=== PATIENT | female | born 1935 | race Caucasian/White ===

== ENCOUNTER 2019-07-31 17:48 | Inpatient (IN) | payer MEDICARE, OTHER ==
[2019-07-31] MEDS ORDERED: ACETAMINOPHEN 500 MG TABLET (FP) PO ONE (18:12)
--- NOTE | 2019-07-31 18:12 | PDOC ---
Rapid Medical Evaluation Time Seen by Provider: 07/31/19 18:08 Medical Evaluation: Allergies Allergy/AdvReac Type Severity Reaction Status Date / Time No Known Allergies Allergy Verified 10/01/16 18:41 07/31/19 18:08 CC: fever, cough x3 days. Travel from [facility] 07/29. Family with influenza. PE: T-101.6, Scattered wheezes. No pedal edema. Orders: duonebs, CXR Patient will proceed to ER for further evaluation. Discharge Disposition - Diagnosis Cough - Referrals - Patient Instructions - Post Discharge Activity
[2019-07-31] MEDS ORDERED: ACETAMINOPHEN 325 MG TABLET (FP) ONE (18:35)
[2019-07-31] MEDS ORDERED: ALBUTEROL SO4 2.5/IPRATROPIUM 0.5 INH SOL 3 ML VIAL.NEB. NEB ONE ×2 (18:35→19:39)
[2019-07-31] MEDS ORDERED: IPRATROPIUM BR 0.02% 0.5 MG/2.5 ML VIAL.NEB. NEB ONE ×2 (18:36→18:55)
[2019-07-31] MEDS: ALBUTEROL SO4 2.5/IPRATROPIUM 0.5 INH SOL 3 ML VIAL.NEB. NEB SCH ×3 (18:50→19:56)
[2019-07-31] MEDS ORDERED: ALBUTEROL SO4 0.083% IH SOL 2.5 MG/3 ML VIAL.NEB. NEB ONE (18:54)
--- NOTE | 2019-07-31 19:31 | PDOC ---
History of Present Illness - General Chief Complaint: Blood Pressure Problem Stated Complaint: Blood Pressure Problem Time Seen by Provider: 07/31/19 18:08 - History of Present Illness Initial Comments: Bella Gutierrez is an 84yo woman with a PMH of HTN, paroxysmal a- fib who presents with 3 days of productive cough, wheezing, SOB, and fever. She recently moved to the from the last week. Per her daughter, Ms Gutierrez has been taking 500mg acetaminophen every 4-6 hours for the past day or two without significant improvement; she has had continued to have fever and productive cough. She additionally reported feeling short of breath throughout the day today. The daughter gave Ms Gutierrez her son' s albuterol due to the SOB with some temporary improvement. The pt has no history of asthma or COPD, though she was recently told that she "might be getting" asthma by her doctor in the . She denies any similar episodes in the past. Ms Gutierrez denies any chest pain, change in appetite, nausea/vomiting, diarrhea , abdominal pain, or other recent or current symptoms. Past History - Past Medical History Allergies/Adverse Reactions: Allergies Allergy/AdvReac Type Severity Reaction Status Date / Time No Known Allergies Allergy Verified 07/31/19 18:12 Home Medications: Ambulatory Orders Warfarin Sodium 5 mg PO DAILY #30 tablet 10/09/16 Aspirin [ASA -] 81 mg PO DAILY #30 tab.chew 10/10/16 Atorvastatin Ca [Lipitor] 40 mg PO HS #30 tablet 10/10/16 Chlorthalidone [Hygroton -] 25 mg PO DAILY #30 tablet 10/10/16 Diltiazem Cd [Cardizem Cd -] 180 mg PO DAILY #30 cap.cd.24h 10/10/16 Levofloxacin [Levaquin] 500 mg PO DAILY #6 tablet 10/10/16 Metoprolol Tartrate [Lopressor -] 25 mg PO BID #60 tablet 10/10/16 Valsartan [Diovan] 320 mg PO DAILY #30 tablet 10/10/16 Allopurinol 300 mg PO DAILY 07/31/19 Amiodarone HCl 1 tab PO DAILY 07/31/19 Atenolol/Chlorthalidone [Atenolol-Chlorthalidone 100-25] 1 tab PO DAILY Hydrochlorothiazide 25 mg PO DAILY 07/31/19 Irbesartan 150 mg PO AM 07/31/19 COPD: No HTN: Yes - Surgical History Abdominal Surgery: Yes Orthopedic Surgery: Yes (ARM) - Psycho Social/Smoking Cessation Hx Smoking History: Never smoked Have you smoked in the past 12 months: No Hx Alcohol Use: No Drug/Substance Use Hx: No Substance Use Type: None Hx Substance Use Treatment: No Review of Systems - Review of Systems Comments:: General: + fevers, no chills, no weight or appetite change, no malaise HEENT: No changes in vision, no changes in hearing, no congestion, no sore throat CV: No chest pain, no palpitations, no LE edema Pulm: See HPI GI: No nausea or vomiting, no change in bowel habits, no melena : No frequency, no urgency, no dysuria Musc: No back pain, no joint swelling, no recent injury Skin: No rash, no lesions, no erythema Endo: No excessive thirst, no heat/cold intolerance Heme: No unusual bruising or bleeding, no swollen glands Neuro: No syncope, no numbness/tingling, no focal weakness Vasc: No claudication Psych: No recent change in mood, no SI or HI *Physical Exam - Vital Signs Last Vital Signs Temp Pulse Resp BP Pulse Ox 101.6 F H 79 18 183/71 H 99 07/31/19 18:06 07/31/19 18:06 07/31/19 18:06 07/31/19 18:06 07/31/19 18:06 - Physical Exam General: Comfortable, no acute distress HEENT: PERRL, EOMI, MMM, voice normal, normal neck ROM Cards: RRR, no murmur appreciated Pulm: Breathing comfortably, diffuse wheezing bilaterally Abd: Soft, nontender, nondistended : No CVA tenderness Ext: Atraumatic. 1+ LE edema. ROM intact. Strength 5/5 and equal bilaterally Vasc: Extremities WWP. ally Skin: Normal color, no rashes or lesions Neuro: A&Ox3, CN grossly intact, normal speech, motor/sensory grossly intact and symmetric Psych: Mood appropriate to situation ED Treatment Course - LABORATORY CBC & Chemistry Diagram: 07/31/19 20:30 07/31/19 20:30 - Medications Given in the ED: ED Medications Discontinued Medications Generic Name Dose Route Start Last Admin Trade Name Francesca PRN Reason Stop Dose Admin Acetaminophen 1,000 mg 07/31/19 18:12 07/31/19 18:40 Tylenol - PO 07/31/19 18:13 1,000 mg ONCE ONE Administration Albuterol/Ipratropium 1 amp 07/31/19 18:15 07/31/19 18:55 Duoneb - NEB 07/31/19 19:01 1 amp Q15M CANDACE Administration Medical Decision Making - Medical Decision Making 07/31/19 19:30 Bella Gutierrez is an 84yo woman, recently moved from the last week, with a PMH of HTN, paroxysmal a-fib who presents with 3 days of productive cough, wheezing, shortness of breath, and fever. - Flu sent from [facility]. CXR ordered - Given age, unknown comorbidities, new onset SOB will check CBC, CMP, trop, coags. Denies chest pain but cannot r/o ACS, pulm edema, pneumonia 07/31/19 19:48 - Flu B positive - Pt and family updated - Labs and xray pending 07/31/19 21:02 - CXR reviewed. No focal abnormalities appreciated - EKG w/ HR 97, normal sinus, t-wave inversions in lateral leads, similar to prior from 2017, no acute changes appreciated. Normal axis, normal intervals. - Labs sent, pending. Plan to admit when labs returned given continued wheezing w/o history of asthma, no PMD or follow up available 07/31/19 21:13 - Labs reviewed. No concerning abnormalities - Will send microblog for admission 07/31/19 21:21 - Family requested time to discuss possible admission. - Solu-medrol for wheezing 07/31/19 21:28 - Family OK with admission. Requesting home amiodarone 200mg that pt takes in the evening; also takes irbesartan 150mg in the morning. Pt has not been taking for several days - Will defer cardiac meds to admitting team as family does not know why she takes the amio 07/31/19 23:00 - Sign out given to Dr Marcos Discussed with Dr Anna Slaughter PGY2 Discharge - Discharge Information Problems reviewed: Yes Clinical Impression/Diagnosis: Influenza B, Shortness of breath, Wheezing on both sides of chest Hypertension Qualifiers: Hypertension type: unspecified Qualified Code(s): I10 - Essential (primary) hypertension Condition: Fair - Admission Yes - Follow up/Referral - Patient Discharge Instructions - Post Discharge Activity
--- NOTE | 2019-07-31 19:32 | PDOC ---
Attending Attestation - Resident Resident Name: Ruth Slaughter - ED Attending Attestation I have performed the following: I have examined & evaluated the patient, The case was reviewed & discussed with the resident, I agree w/resident's findings & plan - HPI HPI: 07/31/19 20:32 see resident hpi - Physicial Exam PE: 07/31/19 20:32 agree with resident exam - Medical Decision Making 07/31/19 20:33 84-year-old female with fever and shortness of breath Patient is influenza positive Chest x-ray shows poor inspiratory effort with no obvious focal infiltrate Due to bronchospasm with wheezing on exam and lack of local follow-up as patient is recently arrived from the [facility] she will be admitted to the hospital for further management this was discussed with the family at bedside
[2019-07-31 20:53] LABS: BASO % 0.5 % (0-2.0); EOS % 0.8 % (0-4.5); HEMATOCRIT 39.6 % (32.4-45.2); HEMOGLOBIN 13.3 GM/dL (10.7-15.3); LYMPH % 38.7 % (8-40); MCH 31.3 pg (25.7-33.7); MCHC 33.5 g/dl (32.0-36.0); MEAN CELL VOLUME 93.2 fl (80-96); MEAN PLT VOLUME 8.2 fl (7.5-11.1); MONO % 12.7 % (3.8-10.2); NEUT % 47.3 % (42.8-82.8); PLATELET COUNT 227 K/MM3 (134-434); RBC 4.25 M/mm3 (3.60-5.2); RDW 13.8 % (11.6-15.6); WHITE BLOOD COUNT 5.5 K/mm3 (4.0-10.0)
[2019-07-31 21:03] LABS: PROTHROMBIN TIME (PATIENT) 11.8 SEC (9.7-13.0)
[2019-07-31 21:06] LABS: ACTIVATED PTT 36.1 SECONDS (25.2-36.5)
[2019-07-31 21:11] LABS: ALBUMIN 3.9 g/dl (3.4-5.0); BILIRUBIN,TOTAL 0.3 mg/dL (0.2-1); BLOOD UREA NITROGEN 22.9 mg/dL (7-18); CALCIUM 8.6 mg/dL (8.5-10.1); CREATININE 1.2 mg/dL (0.55-1.3); POTASSIUM 3.6 mmol/L (3.5-5.1)
[2019-07-31] MEDS ORDERED: methylPREDNISolone NA SUCC 125 MG/2 ML VIAL IVPB ONE (21:23)
[2019-07-31 21:44] LABS: PLATELET ESTIMATE DECREASED
[2019-07-31] MEDS ORDERED: methylPREDNISolone NA SUCC 125 MG/2 ML VIAL ONE (22:04)
--- NOTE | 2019-07-31 23:47 | PN ---
Teaching Attending Note Name of Resident: Shannan Marcos ATTENDING PHYSICIAN STATEMENT I saw and evaluated the patient. I reviewed the resident's note and discussed the case with the resident. I agree with the resident's findings and plan as documented. SUBJECTIVE: Patient is an 84 year old woman with a PMH of HTN, Paroxysmal Afib, Hysterectomy , Metal plate in arm (s/p trauma), Arthritis and Rectal bleeding who presents with 3 days of productive cough, wheezing, SOB, and fever. She recently moved to the from the [facility] last week. Per her daughter patient has been taking 500 mg acetaminophen every 4-6 hours for the past day or two without significant improvement. She has had continued fever and productive cough. She additionally reported feeling short of breath throughout the day today. The daughter gave the patient her son's albuterol due to the SOB with some temporary improvement. Patient has no history of asthma or COPD, though she was recently told that she "might be getting" asthma by [place]. She denies any similar episodes in the past though her records show she was admitted in September 2016 to [facility] for similar symptoms. Had intermittent leg swelling in the past. Denies any chest pain, change in appetite, nausea, vomiting, diarrhea, abdominal pain, dysuria, frequency, hematuria or constipation. Denies alcohol, tobacco or illicit drug use. Exposed to a sick grandson. Has FH of DM, CAD and CVA. OBJECTIVE: Alert Vital Signs Period Temp Pulse Resp BP Sys/Bates Pulse Ox Last 24 Hr 101.6 F 79 18 183/71 99 HEENT: No Jaundice, eye redness or discharge, PERRLA, EOMI. Normocephalic, atraumatic. External ears are normal and hearing is grossly intact. No nasal discharge. Neck: Supple, nontender. No palpable adenopathy or thyromegaly. No JVD Chest: Good effort. Prolonged expiration. Intermittent wheezing. Clear to percussion. Heart: Regular. No S3, rub or murmur Abdomen: Not distended, soft, nontender and no HSM. No rebound or guarding. Normal bowel sounds. Ext: Peripheral pulses intact. No leg edema. Skin: Warm and dry. No petechiae, rash or ecchymosis. Neuro: Alert. Oriented x3. CN 2-12 grossly intact. Sensation grossly intact in all four extremities and DTR are symmetric. Psych: Appropriate mood and affect. Good insight. Home Medications Medication Instructions Recorded Warfarin Sodium 5 mg PO DAILY #30 tablet 10/09/16 Aspirin [ASA -] 81 mg PO DAILY #30 tab.chew 10/10/16 Atorvastatin Ca [Lipitor] 40 mg PO HS #30 tablet 10/10/16 Chlorthalidone [Hygroton -] 25 mg PO DAILY #30 tablet 10/10/16 Diltiazem Cd [Cardizem Cd -] 180 mg PO DAILY #30 cap.cd.24h 10/10/16 Levofloxacin [Levaquin] 500 mg PO DAILY #6 tablet 10/10/16 Metoprolol Tartrate [Lopressor -] 25 mg PO BID #60 tablet 10/10/16 Valsartan [Diovan] 320 mg PO DAILY #30 tablet 10/10/16 Allopurinol 300 mg PO DAILY 07/31/19 Amiodarone HCl 1 tab PO DAILY 07/31/19 Atenolol/Chlorthalidone 1 tab PO DAILY 07/31/19 [Atenolol-Chlorthalidone 100-25] Hydrochlorothiazide 25 mg PO DAILY 07/31/19 Irbesartan 150 mg PO AM 07/31/19 Abnormal Lab Results 07/31/19 07/31/19 07/31/19 18:00 20:30 20:30 Monocytes % 12.7 H D BUN 22.9 H Random Glucose 162 H Influenza B (Rapid) Positive A ASSESSMENT AND PLAN: 1. Influenza B infection/CHF exacerbation - CXR shows cardiomegaly, pulmonary congestion, blunted left costophrenic angle and hilar prominence. Features consistent with CHF exacerbation precipitated by influenza infection. Outside the window for Tamiflu. Will give a trial dose of IV lasix and then also treat for possible underling "obstructive lung disease" with Xopenex, solumedrol and symbicort. Refer for outpatient PFT. Will get ECHO, check HbA1c and uric acid. Restrict dietary salt intake and get daily standing weight. Will ask family to bring in all her medications for review. EKG shows NSR with ST-T wave changes in the inferolateral leads - similar to prior EKG from 2016. Initial troponin is negative. Will rule out ACS. Says her PCP stopped "Xarelto" last month - during the day will strive to get in touch with her PCP in [place] for clarification regarding her medication regimen (?Amiodarone). Her CHA2 DS2-VASc score is 4 - will start Eliquis 2.5 mg bid. Consult social welfare administrator for help with health insurance; consult cardiology and pulmonary. Will continue comprehensive care for all of patients comorbid conditions including coumadin for Afib. 2. Obesity Counseled on the risks associated with obesity. Will provide patient all the necessary assistance, counseling and positive reinforcement to facilitate weight loss. Consult bingo worker. 3. Uncontrolled Hypertension - Restart suitable outpatient antihypertensive drugs when clinically appropriate. Revise regimen to ensure [id number] excellent BP control and quitline counselor patient on the injurious effects of uncontrolled hypertension. Nonpharmacologic measures to control hypertension like weight loss, salt restriction and exercise discussed. Importance of adherence to treatment regimen and attainment of normotension emphasized. 4. DVT prophylaxis - On coumadin. Will bridge with IV heparin. 5. Advance directives - Full code
--- NOTE | 2019-07-31 23:51 | HP ---
CHIEF COMPLAINT: non productive cough, fever, wheezing PCP: none HISTORY OF PRESENT ILLNESS: 84yo F with PMH of HTN, paroxysmal a-fib [id number] score 4 (was on xarelto then stopped by her Dr in and placed on amiodarone instead) presenting to ED with 3 days of fever, non productive cough,wheezing and SOB. According to pt and daughter, She started feeling sick since [facility] with non specific symptoms until her arrival wednesday. She endorsed sick contact in her [place] last week. The fever was measure at 100.4, 100.5 F by daughter and at 101.6F in the ED. She tried honey and lemon for her cough unsuccessfully. She also took tylenol every 4-6 hours for the past day or two without significant improvement; she has had continued to have fever and productive cough. The daughter endorsed audible wheezing associated with chest tightness and SOB since yesterday; at that point, she gave her her son's albuterol with some temporary improvement. She admits to a similar episode in the past and her Dr in [facility] at the time gave her a medication of which she does not recall the name. Has not taken her flu shot. She also endorse history of recurrent/intermittent leg swelling for the past few months without any associated PORTILLO, PND or orthopnea.She denies any chills, palpitations at this time, abdominal pain, weakness/numbness , urinary or Bowel changes. ER course was notable for: (1) VS with fever 101.6F and elevated BP 183/71 mmHg, CBC unremarkable, CMP with BUN:Cr ration >20, trop negative, UA neg (2) Influenza B positive, EKG with NSR,t-wave inversions in lateral leads, similar to prior from 2017, no acute changes appreciated. (3) CXR with no evidence of consolidation but cardiomegaly and pulmonary congestion noted. given duonebs, solumedrol, tylenol Recent Travel: [place] MEDICAL HISTORY: as above PAST SURGICAL HISTORY: hysterectomy, Left forearm surgery with metal plate insertion s/p trauma Social History: Smoking: denies Alcohol: denies Drugs: denies Allergies No Known Allergies Allergy (Verified 07/31/19 18:12) HOME MEDICATIONS: Home Medications Medication Instructions Recorded Warfarin Sodium 5 mg PO DAILY #30 tablet 03/10/17 Aspirin [ASA -] 81 mg PO DAILY #30 tab.chew 10/10/16 Atorvastatin Ca [Lipitor] 40 mg PO HS #30 tablet 10/10/16 Chlorthalidone [Hygroton -] 25 mg PO DAILY #30 tablet 10/10/16 Diltiazem Cd [Cardizem Cd -] 180 mg PO DAILY #30 cap.cd.24h 10/10/16 Levofloxacin [Levaquin] 500 mg PO DAILY #6 tablet 10/10/16 Metoprolol Tartrate [Lopressor -] 25 mg PO BID #60 tablet 10/10/16 Valsartan [Diovan] 320 mg PO DAILY #30 tablet 10/10/16 REVIEW OF SYSTEMS CONSTITUTIONAL: fever, malaise Absent: chills, diaphoresis, generalized weakness, loss of appetite, weight change HEENT: Absent: rhinorrhea, nasal congestion, throat pain, throat swelling, difficulty swallowing, mouth swelling, ear pain, eye pain, visual changes CARDIOVASCULAR: Absent: chest pain, syncope, palpitations, irregular heart rate, lightheadedness , peripheral edema RESPIRATORY: cough, shortness of breath Absent: dyspnea with exertion, orthopnea, wheezing, stridor, hemoptysis GASTROINTESTINAL: Absent: abdominal pain, abdominal distension, nausea, vomiting, diarrhea, constipation, melena, hematochezia GENITOURINARY: Absent: dysuria, frequency, urgency, hesitancy, hematuria, flank pain, genital pain MUSCULOSKELETAL: Absent: myalgia, arthralgia, joint swelling, back pain, neck pain SKIN: Absent: rash, itching, pallor HEMATOLOGIC/IMMUNOLOGIC: Absent: easy bleeding, easy bruising, lymphadenopathy, frequent infections ENDOCRINE: Absent: unexplained weight gain, unexplained weight loss, heat intolerance, cold intolerance NEUROLOGIC: Absent: headache, focal weakness or paresthesias, dizziness, unsteady gait, seizure, mental status changes, bladder or bowel incontinence PSYCHIATRIC: Absent: anxiety, depression, suicidal or homicidal ideation, hallucinations. PHYSICAL EXAMINATION Vital Signs - 24 hr 07/31/19 18:06 Temperature 101.6 F H Pulse Rate 79 Respiratory 18 Rate Blood Pressure 183/71 H O2 Sat by Pulse 99 Oximetry (%) GENERAL: Awake, alert, and fully oriented, in no acute distress. HEAD: Normal with no signs of trauma. EYES: Pupils equal, round and reactive to light, extraocular movements intact, sclera anicteric, conjunctiva clear. No lid lag. EARS, NOSE, THROAT; oropharynx clear without exudates. Moist mucous membranes. NECK: Normal range of motion, supple without lymphadenopathy, JVD, or masses. LUNGS: Breath sounds equal, clear to auscultation bilaterally. No wheezes, and no crackles. No accessory muscle use. HEART: Regular rate and rhythm, normal S1 and S2 with systolic murmur appreciated in LSB and apex ABDOMEN: Soft, nontender, not distended, normoactive bowel sounds, no guarding, no rebound, no masses. No hepatomegaly or splenomegaly. MUSCULOSKELETAL: Normal range of motion at all joints. No bony deformities or tenderness. No CVA tenderness. UPPER EXTREMITIES: 2+ pulses, warm, well-perfused. No cyanosis. No clubbing. No peripheral edema. LOWER EXTREMITIES: 2+ pulses, warm, well-perfused. No calf tenderness. No peripheral edema. NEUROLOGICAL: Cranial nerves II-XII intact. Normal speech. motor strength 5/5 in all muscle groups and sensation grossly intact PSYCHIATRIC: Cooperative. Good eye contact. Appropriate mood and affect. SKIN: Warm, dry, normal turgor, no rashes or lesions noted, normal capillary refill. Laboratory Results - last 24 hr 07/31/19 07/31/19 07/31/19 18:00 20:30 20:30 WBC 5.5 RBC 4.25 Hgb 13.3 Hct 39.6 MCV 93.2 MCH 31.3 MCHC 33.5 RDW 13.8 Plt Count 227 D MPV 8.2 Absolute Neuts (auto) 2.6 Neutrophils % 47.3 D Lymphocytes % 38.7 D Monocytes % 12.7 H D Eosinophils % 0.8 Basophils % 0.5 D Nucleated RBC % 0 Platelet Estimate Decreased Platelet Comment No clumping noted PT with INR INR PTT (Actin FS) Sodium 137 Potassium 3.6 Chloride 103 Carbon Dioxide 24 Anion Gap 10 BUN 22.9 H Creatinine 1.2 Est GFR (CKD-EPI)AfAm 48.06 Est GFR (CKD-EPI)NonAf 41.47 Random Glucose 162 H Calcium 8.6 Total Bilirubin 0.3 AST 35 ALT 39 Alkaline Phosphatase 55 Creatine Kinase Creatine Kinase Index CK-MB (CK-2) Troponin I Total Protein 8.0 Albumin 3.9 Influenza A (Rapid) Negative Influenza B (Rapid) Positive A 07/31/19 07/31/19 20:30 20:30 WBC RBC Hgb Hct MCV MCH MCHC RDW Plt Count MPV Absolute Neuts (auto) Neutrophils % Lymphocytes % Monocytes % Eosinophils % Basophils % Nucleated RBC % Platelet Estimate Platelet Comment PT with INR 11.80 INR 1.00 PTT (Actin FS) 36.1 Sodium Potassium Chloride Carbon Dioxide Anion Gap BUN Creatinine Est GFR (CKD-EPI)AfAm Est GFR (CKD-EPI)NonAf Random Glucose Calcium Total Bilirubin AST ALT Alkaline Phosphatase Creatine Kinase 160 Creatine Kinase Index 1.1 CK-MB (CK-2) 1.8 Troponin I < 0.02 Total Protein Albumin Influenza A (Rapid) Influenza B (Rapid) echo 09/2016: nl lv/rv. 1+ josefina. 1+ AR, mild-mod MAC. mod-sev MR. 1+ TR. RVSP 39. mibi 09/2016: dobutamine, nl mpi, lvef 69% ASSESSMENT/PLAN: 84yo F with PMH of HTN, paroxysmal a-fib (was on xarelto then stopped by her Dr in [place] and placed on amiodarone instead) presenting to ED with 3 days of fever, non productive cough,wheezing, SOB and recurrent leg swelling ?asthma/COPD vs ?CHF exacerbation most likely due to the flu in the setting of positive Influenza B Fever 101.6, non productive cough, SOB associated with chest tightness and wheezing, recurrent leg swelling S/P solumedrol, duonebs, tylenol in ED cont tylenol 650 Q6h for fever and pain continue with xopenex, symbicort , Solumedrol consider Pulm DR Carr consult for outpatient PTS trial of IV lasix 40 stats with strict urine output monitoring for poss underlying CHF daily weights monitor VS Pt currently feeling better and has been over 48 hrs no need for tamiflu at this time Droplet isolations for the flu HTN 183/71 mmHg on admission. repeat BP 117/49 f/u cardio recommendation for medication as pt was previously on atenolol- chlorthalidone, Irbisartan, HTZD. unsure which she actively takes. monitor VS History Afib currently rate controlled pt was on xarelto on last d/c in 2016 but didnt continue once in [place] by her Doctor's choice [id number] score 4. Insurance? starting eliquis 5mg BID Echo to assess cardiac function compared to previous one in [address] Simon consult currently on amiodarone 300mg Elevated Bun:Cr ration with reduced GFR. Dehydration vs CKD NS @ 83 after lasix trial HbA1C lipid panel uric acid level ( pt was on allopurinol) Abnormal EKG will r/o ACS EKG with NSR,t-wave inversions in lateral leads, similar to prior from 2017 initial trop negative f/u second trop FEN NS @ 83cc/h after lasix trial monitor lytes Salt controlled diet DVT eliquis Admit to med-surge Visit type - Emergency Visit Emergency Visit: Yes ED Registration Date: 07/31/19 Care time: The patient presented to the Emergency Department on the above date and was hospitalized for further evaluation of their emergent condition. - New Patient This patient is new to me today: Yes Date on this admission: 08/01/19 - Critical Care Critical Care patient: No ATTENDING PHYSICIAN STATEMENT I saw and evaluated the patient. I reviewed the resident's note and discussed the case with the resident. I agree with the resident's findings and plan as documented. SUBJECTIVE: OBJECTIVE: ASSESSMENT AND PLAN:
[2019-08-01] MEDS ORDERED: ACETAMINOPHEN 325 MG TABLET (FP) PO PRN (02:10)
[2019-08-01] MEDS ORDERED: FUROSEMIDE 40 MG/4 ML INJECTABLE VIAL IVPUSH ONE (02:16)
[2019-08-01] MEDS ORDERED: ALBUTEROL SO4 2.5/IPRATROPIUM 0.5 INH SOL 3 ML VIAL.NEB. NEB SCH (02:19)
[2019-08-01] MEDS ORDERED: LEVALBUTEROL HCL 0.31 MG/3 ML VIAL.NEB IH PRN (03:00)
[2019-08-01] MEDS ORDERED: LEVALBUTEROL HCL 0.31 MG/3 ML VIAL.NEB IH ONE (03:15)
[2019-08-01 06:33] LABS: BASO % 0.5 % (0-2.0); HEMATOCRIT 36.6 % (32.4-45.2); HEMOGLOBIN 12.6 GM/dL (10.7-15.3); LYMPH % 19.4 % (8-40); MCH 31.5 pg (25.7-33.7); MCHC 34.4 g/dl (32.0-36.0); MEAN CELL VOLUME 91.5 fl (80-96); MEAN PLT VOLUME 8.4 fl (7.5-11.1); MONO % 2.4 % (3.8-10.2); NEUT % 77.7 % (42.8-82.8); PLATELET COUNT 219 K/MM3 (134-434); RDW 13.5 % (11.6-15.6); WHITE BLOOD COUNT 3.1 K/mm3 (4.0-10.0)
[2019-08-01 06:54] LABS: ALBUMIN 3.5 g/dl (3.4-5.0); BILIRUBIN,TOTAL 0.2 mg/dL (0.2-1); BLOOD UREA NITROGEN 20.1 mg/dL (7-18); CALCIUM 8.3 mg/dL (8.5-10.1); CREATININE 1.1 mg/dL (0.55-1.3); MAGNESIUM 1.9 mg/dL (1.8-2.4); PHOSPHOROUS 3.5 mg/dL (2.5-4.9); POTASSIUM 4.2 mmol/L (3.5-5.1); TOT PROT 7.6 g/dl (6.4-8.2)
[2019-08-01 06:56] LABS: CHOLESTEROL 136 mg/dL (50-200); HDL CHOLESTEROL 52 mg/dL (40-60); LDL CHOLESTEROL (ONLY SJRH) 73 mg/dL (5-100); TRIGLYCERIDES 54 mg/dL (0-150)
--- NOTE | 2019-08-01 07:45 | CON.CARD ---
Consult Consult Specialty:: cardiology Reason for Consultation:: shortness of breath; febrile - History of Present Illness Chief Complaint: Pt A&OX3; no chest pain or dyspnea. History of Present Illness: 84-year-old woman (b. [facility]), with PMHx paroxysmal atrial fibrillation (PAF: on apixaban), HTN, diastolic CHF (ECHO 2017: normal LVEF; moderate CA),?DM, obesity, now admitted with fever and shortness of breath. Patient is influenza positive Chest x-ray shows poor inspiratory effort with no obvious focal infiltrate Due to bronchospasm with wheezing on exam and lack of local follow-up as patient is recently arrived from the [facility] she will be admitted to the hospital for further management this was discussed with the family at bedside - History Source History Provided By: Patient, Family Member (daughter), Medical Record Limitations to Obtaining History: No Limitations - Past Medical History Cardio/Vascular: Yes: AFIB, CHF (diastolic), HTN Pulmonary: Yes: Pneumonia Renal/: Yes: Other (renal cysts) Reproductive: Yes: Postmenopausal ...: No - Past Surgical History Past Surgical History: Yes: Hysterectomy - Alcohol/Substance Use Hx Alcohol Use: No - Smoking History Smoking history: Never smoked Have you smoked in the past 12 months: No - Social History Usual Living Arrangement: Alone ADL: Independent Occupation: unemployed History of Recent Travel: Yes (arrived from ) Home Medications - Allergies Allergies/Adverse Reactions: Allergies Allergy/AdvReac Type Severity Reaction Status Date / Time No Known Allergies Allergy Verified 07/31/19 18:12 - Home Medications Home Medications: Ambulatory Orders Warfarin Sodium 5 mg PO DAILY #30 tablet 10/09/16 Aspirin [ASA -] 81 mg PO DAILY #30 tab.chew 10/10/16 Atorvastatin Ca [Lipitor] 40 mg PO HS #30 tablet 10/10/16 Chlorthalidone [Hygroton -] 25 mg PO DAILY #30 tablet 10/10/16 Diltiazem Cd [Cardizem Cd -] 180 mg PO DAILY #30 cap.cd.24h 10/10/16 Levofloxacin [Levaquin] 500 mg PO DAILY #6 tablet 10/10/16 Metoprolol Tartrate [Lopressor -] 25 mg PO BID #60 tablet 10/10/16 Valsartan [Diovan] 320 mg PO DAILY #30 tablet 10/10/16 Allopurinol 300 mg PO DAILY 12/30/19 Amiodarone HCl 1 tab PO DAILY 07/31/19 Atenolol/Chlorthalidone [Atenolol-Chlorthalidone 100-25] 1 tab PO DAILY Hydrochlorothiazide 25 mg PO DAILY 07/31/19 Irbesartan 150 mg PO AM 07/31/19 Family Medical History Family History: Denies Review of Systems - Review of Systems Constitutional: reports: Fever, Weakness Eyes: reports: No Symptoms HENT: reports: No Symptoms Neck: reports: No Symptoms Cardiovascular: reports: No Symptoms Respiratory: reports: Cough, Wheezing Gastrointestinal: reports: No Symptoms Genitourinary: reports: No Symptoms Breasts: reports: No Symptoms Reported Musculoskeletal: reports: Muscle Weakness Integumentary: reports: No Symptoms Neurological: reports: No Symptoms Endocrine: reports: No Symptoms Hematology/Lymphatic: reports: No Symptoms Psychiatric: reports: No Symptoms - Risk Factors Known Risk Factors: Yes: Age, Diabetes Mellitus, Hypercholesterolemia, Hypertension, Physical Inactivity, Other (AF) Vital Signs: Vital Signs Temperature 98.5 F 08/01/19 06:00 Pulse Rate 71 08/01/19 06:00 Respiratory Rate 20 08/01/19 06:00 Blood Pressure 140/57 L 08/01/19 06:00 O2 Sat by Pulse Oximetry (%) 95 08/01/19 02:58 Constitutional: Yes: Calm, Obese Eyes: Yes: WNL HENT: Yes: WNL Neck: Yes: WNL Respiratory: Yes: Diminished, Wheezes Gastrointestinal: Yes: Soft Renal/: No: Anuria Cardiovascular: Yes: Regular Rate and Rhythm JVD: No Carotid Bruit: No PMI: Non-Displaced Heart Sounds: Yes: S1, S2, S4 Murmur: Yes: Diastolic Murmur, Grade 2 Musculoskeletal: Yes: Muscle Weakness Extremities: Yes: WNL Edema: No Peripheral Pulses WNL: Yes Integumentary: Yes: WNL Neurological: Yes: Alert, Oriented ...Motor Strength: WNL Psychiatric: Yes: WNL - Other Data Labs, Other Data: CBC, BMP 08/01/19 05:20 08/01/19 05:20 INR, PTT INR 1.00 (0.83-1.09) 07/31/19 20:30 Troponin, BNP 07/31/19 08/01/19 20:30 05:20 Troponin I < 0.02 0.02 Troponin, BNP 07/31/19 08/01/19 20:30 05:20 Troponin I < 0.02 0.02 Abnormal Lab Results 08/01/19 08/01/19 05:20 05:20 WBC 3.1 L Monocytes % 2.4 L D BUN 20.1 H Random Glucose 196 H Calcium 8.3 L Echo: Pending Ejection Fraction %: LVEF > or = 40 % Imaging - Results Chest X-ray: Image Reviewed EKG: Image Reviewed Problem List - Problems (1) Hypertension Assessment/Plan: on atenolol and chlorthalidone. Code(s): I10 - ESSENTIAL (PRIMARY) HYPERTENSION Qualifiers: Hypertension type: unspecified Qualified Code(s): I10 - Essential (primary ) hypertension (2) Influenza B Assessment/Plan: Treatment per ID. Bronchodiltors; O2, steroids per zipper slide attacher. Code(s): J10.1 - FLU DUE TO OTH IDENT INFLUENZA VIRUS W OTH RESP MANIFEST (3) Shortness of breath Code(s): R06.02 - SHORTNESS OF BREATH (4) Atrial fibrillation Assessment/Plan: On atenolol 100 mg daily for HR control. on apixaban 5 mg bid for anticoagulation. Code(s): I48.91 - UNSPECIFIED ATRIAL FIBRILLATION (5) Febrile Code(s): R50.9 - FEVER, UNSPECIFIED (6) Diastolic CHF Assessment/Plan: No JVD Mild congestive changes on CXR. TNI < 0.02 x 2. f/u ECHO. On atenolol, chlorthalidone. F/u BUN/Cr, Is and Os, daily weight, electrolytes. Code(s): I50.30 - UNSPECIFIED DIASTOLIC (CONGESTIVE) HEART FAILURE (7) Diabetes Assessment/Plan: elevated glucose. On steroids. F/u HGBA1c. Code(s): E11.9 - TYPE 2 DIABETES MELLITUS WITHOUT COMPLICATIONS (8) Obesity Code(s): E66.9 - OBESITY, UNSPECIFIED
[2019-08-01 08:29] LABS: N-TERMINAL BNP 204.7 pg/ml (5-450)
[2019-08-01] MEDS: methylPREDNISolone NA SUCC 40 MG/1 ML VIAL IVPUSH SCH ×2 (09:54→17:18)
[2019-08-01] MEDS: APIXABAN 5 MG TABLET PO SCH ×2 (09:54→21:41)
[2019-08-01] MEDS ORDERED: APIXABAN 2.5 MG TABLET PO SCH (10:00)
--- NOTE | 2019-08-01 10:27 | EKG ---
Test Reason : Blood Pressure : / mmHG Vent. Rate : 097 BPM Atrial Rate : 097 BPM P-R Int : 156 ms QRS Dur : 076 ms QT Int : 370 ms P-R-T Axes : 053 012 123 degrees QTc Int : 469 ms POOR DATA QUALITY, INTERPRETATION MAY BE ADVERSELY AFFECTED NORMAL SINUS RHYTHM CANNOT RULE OUT ANTERIOR INFARCT , AGE UNDETERMINED ABNORMAL ECG WHEN COMPARED WITH ECG OF 02-OCT-2016 09:06, VENT. RATE HAS INCREASED BY 44 BPM T WAVE INVERSION NOW EVIDENT IN INFERIOR LEADS Confirmed by MD Randall, Navid ([id number]) on 08/01/2019 10:27:13 AM Referred By: Confirmed By:Navid Pereira MD
[2019-08-01] MEDS ORDERED: PT OWN MED DRAWER 7, Y5N ONE (10:35)
--- NOTE | 2019-08-01 10:39 | ECHO ---
Version: 1 Name: CHERIE RUIZ Exam: Adult Echocardiogram Study Date: 08/01/2019, 7:46 AM Age: 84 Years MMode/2D Measurements & Calculations IVSd: 0.98 cm LVIDs: 2.7 cm LVIDd: 3.5 cm LVPWd: 0.91 cm LAV (MOD-bp): 54.9 ml LVOT diam: 1.97 cm Ao root diam: 2.25 cm LA dimension: 3.6 cm Doppler Measurements & Calculations MV E max daren: 85.3 cm/sec Med E/e': 16.7 MV A max daren: 114.3 cm/sec Med Peak E' Daren: 5.1 cm/sec MV E/A: 0.75 Lat E/e': 19.1 Lat Peak E' Daren: 4.5 cm/sec Ao max P.3 mmHg SHIRLEY(I,D): 1.68 cm Ao mean P.1 mmHg LV V1 mean: 108.0 cm/sec Ao V2 max: 284.4 cm/sec LV V1 mean P.3 mmHg AI P1/2t: 550.2 msec TR max daren: 226.2 cm/sec TR max P.5 mmHg Procedure The study was technically difficult with many images being suboptimal in quality. Left Ventricle The left ventricular size, thickness and function are normal. Ejection Fraction = 70%. The transmitr al spectral Doppler flow pattern is suggestive of impaired LV relaxation. Right Ventricle The right ventricle is normal in size and function. Atria Normal left and right atrial size and function. Mitral Valve There is mild mitral annular calcification. There is trace mitral regurgitation. Tricuspid Valve The tricuspid valve is normal. There is Trace to mild tricuspid regurgitation. Aortic Valve There is moderate aortic sclerosis.;. Mild aortic regurgitation. Pulmonic Valve The pulmonic valve is not well seen, but is grossly normal. Great Vessels The aortic root is normal size. Normal aortic arch, descending and ascending aorta. Pericardium/Pleura There is no pericardial effusion. Summary Statements The study was technically difficult with many images being suboptimal in quality. The left ventricular size, thickness and function are normal Ejection Fraction = 70%. The transmitral spectral Doppler flow pattern is suggestive of impaired LV relaxation. The right ventricle is normal in size and function. Normal left and right atrial size and function. There is mild mitral annular calcification. There is trace mitral regurgitation. The tricuspid valve is normal. There is Trace to mild tricuspid regurgitation. There is moderate aortic sclerosis.; Mild aortic regurgitation. The pulmonic valve is not well seen, but is grossly normal. The aortic root is normal size. Normal aortic arch, descending and ascending aorta There is no pericardial effusion. Cayetano Osborne 08/01/2019, 10:39 AM Ordering Physician: Shannan Marcos Performed By: Marily Schilling
[2019-08-01] MEDS: BUDESONIDE/FORMETEROL FUMARATE 80/4.5 mcg INHALER IH SCH ×2 (11:31→21:41)
--- NOTE | 2019-08-01 14:10 | PN ---
Progress Note (short form) - Note Progress Note: 84 year old woman with a PMH of HTN, Paroxysmal Afib on AC, Hysterectomy, Metal plate in arm (s/p trauma), Arthritis and Rectal bleeding, ?asthma/COPD presents with about 2 weeks of productive cough, SOB, wheezing and subjective fever and chills. Patient found to be positive for influenza B, Tamiflu held off due to long duration of symptoms. Her cough is now dry. Patient today feels better, still coughing but SOB markedly improved. No fevers overnight. PE VSS GA comfortable, AAox3, speaks in full sentences HEENT NC/AT, EOMI, neck supple, no JVD, dry MM Chest good air entry b/l, end expiratory wheezing+, no crackles Abd soft, NT, ND Ext NO LE edema, no calf tenderness, severe arthritic changes in both knees with crepitus on motion. Vital Signs (72 hours) 07/31/19 08/01/19 08/01/19 18:06 01:01 02:32 Temperature 101.6 F H 98.6 F Pulse Rate 79 75 Pulse Rate [ 66 Right] Respiratory 18 18 20 Rate Blood Pressure 183/71 H 168/71 Blood Pressure 117/49 L [Right Arm] O2 Sat by Pulse 99 95 95 Oximetry (%) 08/01/19 08/01/19 08/01/19 02:58 06:00 09:00 Temperature 98.5 F 97.9 F Pulse Rate 71 81 Pulse Rate [ Right] Respiratory 20 20 18 Rate Blood Pressure 140/57 L 162/79 Blood Pressure [Right Arm] O2 Sat by Pulse 95 95 Oximetry (%) Laboratory Results - last 24 hr 07/31/19 07/31/19 07/31/19 18:00 20:30 20:30 WBC 5.5 RBC 4.25 Hgb 13.3 Hct 39.6 MCV 93.2 MCH 31.3 MCHC 33.5 RDW 13.8 Plt Count 227 D MPV 8.2 Absolute Neuts (auto) 2.6 Neutrophils % 47.3 D Lymphocytes % 38.7 D Monocytes % 12.7 H D Eosinophils % 0.8 Basophils % 0.5 D Nucleated RBC % 0 Platelet Estimate Decreased Platelet Comment No clumping noted PT with INR INR PTT (Actin FS) Sodium 137 Potassium 3.6 Chloride 103 Carbon Dioxide 24 Anion Gap 10 BUN 22.9 H Creatinine 1.2 Est GFR (CKD-EPI)AfAm 48.06 Est GFR (CKD-EPI)NonAf 41.47 Random Glucose 162 H Calcium 8.6 Phosphorus Magnesium Total Bilirubin 0.3 AST 35 ALT 39 Alkaline Phosphatase 55 Creatine Kinase Creatine Kinase Index CK-MB (CK-2) Troponin I B-Natriuretic Peptide Total Protein 8.0 Albumin 3.9 Triglycerides Cholesterol Total LDL Cholesterol HDL Cholesterol Influenza A (Rapid) Negative Influenza B (Rapid) Positive A 07/31/19 07/31/19 08/01/19 20:30 20:30 05:20 WBC 3.1 L RBC 4.00 Hgb 12.6 Hct 36.6 MCV 91.5 MCH 31.5 MCHC 34.4 RDW 13.5 Plt Count 219 MPV 8.4 Absolute Neuts (auto) 2.4 Neutrophils % 77.7 D Lymphocytes % 19.4 D Monocytes % 2.4 L D Eosinophils % 0.0 D Basophils % 0.5 Nucleated RBC % 0 Platelet Estimate Platelet Comment PT with INR 11.80 INR 1.00 PTT (Actin FS) 36.1 Sodium Potassium Chloride Carbon Dioxide Anion Gap BUN Creatinine Est GFR (CKD-EPI)AfAm Est GFR (CKD-EPI)NonAf Random Glucose Calcium Phosphorus Magnesium Total Bilirubin AST ALT Alkaline Phosphatase Creatine Kinase 160 Creatine Kinase Index 1.1 CK-MB (CK-2) 1.8 Troponin I < 0.02 B-Natriuretic Peptide Total Protein Albumin Triglycerides Cholesterol Total LDL Cholesterol HDL Cholesterol Influenza A (Rapid) Influenza B (Rapid) 08/01/19 08/01/19 08/01/19 05:20 05:20 05:20 WBC RBC Hgb Hct MCV MCH MCHC RDW Plt Count MPV Absolute Neuts (auto) Neutrophils % Lymphocytes % Monocytes % Eosinophils % Basophils % Nucleated RBC % Platelet Estimate Platelet Comment PT with INR INR PTT (Actin FS) Sodium 136 Potassium 4.2 Chloride 102 Carbon Dioxide 26 Anion Gap 8 BUN 20.1 H Creatinine 1.1 Est GFR (CKD-EPI)AfAm 53.39 Est GFR (CKD-EPI)NonAf 46.07 Random Glucose 196 H Calcium 8.3 L Phosphorus 3.5 Magnesium 1.9 Total Bilirubin 0.2 AST 28 ALT 38 Alkaline Phosphatase 51 Creatine Kinase Creatine Kinase Index CK-MB (CK-2) Troponin I 0.02 B-Natriuretic Peptide 204.7 Total Protein 7.6 Albumin 3.5 Triglycerides 54 Cholesterol 136 Total LDL Cholesterol 73 HDL Cholesterol 52 Influenza A (Rapid) Influenza B (Rapid) Current Medications Generic Name Dose Route Start Last Admin Trade Name Francesca PRN Reason Stop Dose Admin Acetaminophen 650 mg 08/01/19 02:10 Tylenol - PO Q4H PRN PAIN LEVEL 6-10 Apixaban 5 mg 08/01/19 10:00 08/01/19 09:54 Eliquis - PO 5 mg BID CANDACE Administration Budesonide/Formoterol Fumarate 2 puff 08/01/19 10:00 08/01/19 11:31 Symbicort 80/4.5mcg - IH 2 puff BID CANDACE Administration Levalbuterol HCl 0.31 mg 08/01/19 03:00 Xopenex IH Q8H PRN ASTHMA Methylprednisolone Sodium Succinate 40 mg 08/01/19 10:00 08/01/19 09:54 Solu-Medrol - IVPUSH 40 mg Q8H-IV CANDACE Administration A/P: 84 F w/ h/o HFpEF, obesity, HTN, ?COPD/Asthma, Afib on Xarelto, OA, presents with URI and found to be positive for Influenza B, out of range for treatment at this time. Improved overnight after nebs and supportive care. Influenza B infection out of window for Tamiflu (patient endorses symptoms going on for about 7-10 days) Droplet isolation, notified family members of Flu diagnosis and advised them to see their PCP if they develop symptoms Tylenol PRN for fever, cont. IV hydration, supportive care ?Asthma/COPD Was told by her PCP in she "may" have obstructive lung disease, never worked up, patient improved with neb treatments would be reasonable for her to establish care with Pulmonary to follow up Cont. Duonebs, cont. IV steroids, supplement with PPI Pulmonary consult: Dr. Pulido HFpEF not in acute exacerbation, euvolemic, BNP 204, obtain daily weights, monitor I/ Os Eliquis for AC for Afib (CHADSVASC score is 4) Will start Atenolol/Chlorthalidone, will hold off on Amiodarone for now until Cardiology evaluates patient Send A1c, lipids, TSH Cardiology: Dr. Gaona HTN will restart Atenolol/Chlorthalidone for BP control Paroxysmal Afib On Eliquis for AC, rate controlled Echo shows normal EF w/ diastolic dysfunction DVT PPX: Eliquis FEN: Oral hydration, daily chem, Na controlled diet GI ppx: add PPI Visit type - Emergency Visit Emergency Visit: Yes ED Registration Date: 07/31/19 Care time: The patient presented to the Emergency Department on the above date and was hospitalized for further evaluation of their emergent condition. - New Patient This patient is new to me today: Yes Date on this admission: 08/01/19 - Critical Care Critical Care patient: No
[2019-08-01] MEDS ORDERED: ATENOLOL 50 MG TABLET (FP) PO ONE (14:30)
[2019-08-01] MEDS ORDERED: BENZOCAINE/MENTH/CETYLPYRD CL 1 EACH LOZENGE MM PRN (21:06)
[2019-08-02] MEDS: methylPREDNISolone NA SUCC 40 MG/1 ML VIAL IVPUSH SCH ×2 (01:38→10:30)
[2019-08-02] MEDS ORDERED: ALBUTEROL SO4 0.083% IH SOL 2.5 MG/3 ML VIAL.NEB. NEB PRN (04:09)
[2019-08-02] MEDS ORDERED: LEVALBUTEROL HCL 0.31 MG/3 ML VIAL.NEB IH ONE (04:33)
[2019-08-02] MEDS ORDERED: ALBUTEROL SO4 2.5/IPRATROPIUM 0.5 INH SOL 3 ML VIAL.NEB. NEB ONE (04:40)
[2019-08-02 06:21] LABS: BASO % 0.1 % (0-2.0); HEMATOCRIT 36.9 % (32.4-45.2); HEMOGLOBIN 12.5 GM/dL (10.7-15.3); LYMPH % 20.7 % (8-40); MCHC 33.9 g/dl (32.0-36.0); MEAN CELL VOLUME 91.3 fl (80-96); MEAN PLT VOLUME 8.5 fl (7.5-11.1); NEUT % 72.2 % (42.8-82.8); PLATELET COUNT 223 K/MM3 (134-434); RBC 4.04 M/mm3 (3.60-5.2); RDW 13.6 % (11.6-15.6); WHITE BLOOD COUNT 6.9 K/mm3 (4.0-10.0)
[2019-08-02 06:53] LABS: BLOOD UREA NITROGEN 45.3 mg/dL (7-18); CALCIUM 8.2 mg/dL (8.5-10.1); CREATININE 1.3 mg/dL (0.55-1.3); POTASSIUM 4.7 mmol/L (3.5-5.1); URIC ACID 7.2 mg/dL (2.6-7.2)
[2019-08-02] MEDS: ALBUTEROL SO4 2.5/IPRATROPIUM 0.5 INH SOL 3 ML VIAL.NEB. NEB SCH ×4 (08:18→20:09)
[2019-08-02] MEDS: APIXABAN 5 MG TABLET PO SCH ×2 (10:30→21:13)
[2019-08-02] MEDS: BUDESONIDE/FORMETEROL FUMARATE 80/4.5 mcg INHALER IH SCH ×2 (10:30→21:14)
[2019-08-02] MEDS: PANTOPRAZOLE 40 MG TABLET (FP) PO SCH (10:30)
[2019-08-02] MEDS: CHLORTHALIDONE 25 MG TABLET PO SCH (10:30)
[2019-08-02] MEDS: ATENOLOL 50 MG TABLET (FP) PO SCH (10:34)
--- NOTE | 2019-08-02 10:42 | CON.PULM ---
Consult Consult Specialty:: PULMONARY Referred by:: OSMEL Reason for Consultation:: COUGH/SOB/INFLU B+ - History of Present Illness Chief Complaint: COUGH/SOB History of Present Illness: 84yo woman with a PMH of HTN, paroxysmal a-fib who presents with 3 days of productive cough, wheezing, SOB, and fever. She recently moved to the from the last week. She has been taking 500mg acetaminophen every 4-6 hours for the past day or two without significant improvement; she has had continued to have fever and productive cough. She additionally reported feeling short of breath throughout the day today. The daughter gave her son's albuterol due to the SOB with some temporary improvement. The pt has no history of asthma or COPD , though she was recently told that she "might be getting" asthma by her doctor in the . She denies any similar episodes in the past. Denies any chest pain, change in appetite, nausea/vomiting, diarrhea, abdominal pain, or other recent or current symptoms. - History Source History Provided By: Patient, Medical Record Limitations to Obtaining History: Language Barrier - Past Medical History [employer]: No: Alzheimer's Cardio/Vascular: Yes: AFIB, CHF (diastolic), HTN Pulmonary: Yes: Pneumonia, Other (influ b) Gastrointestinal: No: Cancer Hepatobiliary: No: Cirrhosis Renal/: Yes: Other (renal cysts). No: Renal Failure ...: No - Past Surgical History Past Surgical History: Yes: Hysterectomy - Alcohol/Substance Use Hx Alcohol Use: No - Smoking History Smoking history: Never smoked Have you smoked in the past 12 months: No - Social History Usual Living Arrangement: Alone ADL: Independent Occupation: unemployed History of Recent Travel: Yes (arrived from ) Home Medications - Allergies Allergies/Adverse Reactions: Allergies Allergy/AdvReac Type Severity Reaction Status Date / Time No Known Allergies Allergy Verified 07/31/19 18:12 - Home Medications Home Medications: Ambulatory Orders Warfarin Sodium 5 mg PO DAILY #30 tablet 10/09/16 Aspirin [ASA -] 81 mg PO DAILY #30 tab.chew 10/10/16 Atorvastatin Ca [Lipitor] 40 mg PO HS #30 tablet 10/10/16 Chlorthalidone [Hygroton -] 25 mg PO DAILY #30 tablet 10/10/16 Diltiazem Cd [Cardizem Cd -] 180 mg PO DAILY #30 cap.cd.24h 10/10/16 Levofloxacin [Levaquin] 500 mg PO DAILY #6 tablet 10/10/16 Metoprolol Tartrate [Lopressor -] 25 mg PO BID #60 tablet 10/10/16 Valsartan [Diovan] 320 mg PO DAILY #30 tablet 10/10/16 Allopurinol 300 mg PO DAILY 07/31/19 Amiodarone HCl 1 tab PO DAILY 07/31/19 Atenolol/Chlorthalidone [Atenolol-Chlorthalidone 100-25] 1 tab PO DAILY Hydrochlorothiazide 25 mg PO DAILY 07/31/19 Irbesartan 150 mg PO AM 07/31/19 Family Medical History Family History: Unremarkable Review of Systems - Review of Systems Constitutional: reports: Fever Eyes: denies: Blurred Vision HENT: denies: Difficult Swallowing Neck: denies: Decreased ROM Cardiovascular: reports: Shortness of Breath. denies: Chest Pain Respiratory: reports: Cough, Exercise Intolerance, SOB, SOB on Exertion, Wheezing. denies: Hemoptysis, Orthopnea Gastrointestinal: denies: Abdominal Pain Genitourinary: denies: Burning Physical Exam Vital Sings: Vital Signs Temperature 98.7 F 08/02/19 10:00 Pulse Rate 55 L 08/02/19 10:00 Respiratory Rate 18 08/02/19 10:00 Blood Pressure 136/62 08/02/19 10:00 O2 Sat by Pulse Oximetry (%) 93 L 08/01/19 21:00 Constitutional: Yes: Calm Eyes: Yes: EOM Intact HENT: Yes: Normocephalic Neck: Yes: Trachea Midline Cardiovascular: Yes: Regular Rate and Rhythm, S1, S2 Respiratory: Yes: Rhonchi, Wheezes Gastrointestinal: Yes: Normal Bowel Sounds, Soft Edema: No Labs: CBC, BMP 08/02/19 05:20 08/02/19 05:20 Imaging - Results Chest X-ray: Report Reviewed, Image Reviewed Problem List - Problems (1) Hypertension Code(s): I10 - ESSENTIAL (PRIMARY) HYPERTENSION Qualifiers: Hypertension type: unspecified Qualified Code(s): I10 - Essential (primary ) hypertension (2) Influenza B Code(s): J10.1 - FLU DUE TO OTH IDENT INFLUENZA VIRUS W OTH RESP MANIFEST (3) Shortness of breath Code(s): R06.02 - SHORTNESS OF BREATH (4) Atrial fibrillation Code(s): I48.91 - UNSPECIFIED ATRIAL FIBRILLATION Assessment/Plan O2/BRONCHODILATORS/STEROIDS/ANTICOAGULATION CONSIDER EMPIRIC ANTIBIOTICS IF CONTINUED CLINICAL IMPROVEMENT NOT APPARENT RX FOR INFLU B PER PRIMARY TEAM Israel PAYTON MD
--- NOTE | 2019-08-02 11:31 | PN ---
Progress Note (short form) - Note Progress Note: This is a 84-year-old female with past medical history of hypertension atrial fibrillation hysterectomy arthritis history of asthma and COPD admitted to the hospital with shortness of breath wheezing and fever and chills. She had influenza test positive but was not treated because of the delayed in symptoms. Today she is comfortable she has no fevers still mild coughing but no shortness of breath. Vital sign stable Vital Signs Period Temp Pulse Resp BP Sys/Bates Pulse Ox Last 24 Hr 97.6 F-99.2 F 55-81 16-20 129-158/59-86 93 Physical examination GA comfortable, AAox3, speaks in full sentences HEENT NC/AT, EOMI, neck supple, no JVD, dry MM Chest good air entry b/l, end expiratory wheezing+, no crackles Abd soft, NT, ND Ext NO LE edema, no calf tenderness, severe arthritic changes in both knees with crepitus on motion. CBC, BMP 08/02/19 05:20 08/02/19 05:20 Assessment and plan 84 F w/ h/o HFpEF, obesity, HTN, ?COPD/Asthma, Afib on Xarelto, OA, presents with URI and found to be positive for Influenza B, out of range for treatment at this time. Improved overnight after nebs and supportive care. Influenza Asthma COPD Heart failure Hypertension Paroxysmal atrial fibrillation Acute COPD Patient is comfortable We will continue her nebulizer treatment but change her Medrol to p.o. and he is afebrile no need for antibiotic She is slightly high creatinine which is coming down now advised patient to continue drink more fluids She is much improved today. Current Medications Acetaminophen (Tylenol -) 650 mg PO Q4H PRN PRN Reason: PAIN LEVEL 6-10 Albuterol/Ipratropium (Duoneb -) 1 amp NEB RQID [facility] Last Admin: 08/02/19 11:25 Dose: 1 amp Apixaban (Eliquis -) 5 mg PO BID [facility] Last Admin: 08/02/19 10:30 Dose: 5 mg Atenolol (Tenormin -) 100 mg PO DAILY [facility] Last Admin: 08/02/19 10:34 Dose: Not Given Benzocaine/Menthol (Cepacol Lozenge -) 1 each MM PRN PRN PRN Reason: SORE THROAT Last Admin: 08/01/19 21:41 Dose: 1 each Budesonide/Formoterol Fumarate (Symbicort 80/4.5mcg -) 2 puff IH BID [facility] Last Admin: 08/02/19 10:30 Dose: 2 puff Chlorthalidone (Hygroton -) 25 mg PO DAILY [facility] Last Admin: 08/02/19 10:30 Dose: 25 mg Levalbuterol HCl (Xopenex) 0.31 mg IH Q8H PRN PRN Reason: ASTHMA Methylprednisolone Sodium Succinate (Solu-Medrol -) 40 mg IVPUSH Q8H-IV [facility] Last Admin: 08/02/19 10:30 Dose: 40 mg Pantoprazole Sodium (Protonix -) 40 mg PO DAILY [facility] Last Admin: 08/02/19 10:30 Dose: 40 mg Visit type - Emergency Visit Emergency Visit: Yes ED Registration Date: 07/31/19 Care time: The patient presented to the Emergency Department on the above date and was hospitalized for further evaluation of their emergent condition. - New Patient This patient is new to me today: Yes Date on this admission: 08/02/19 - Critical Care Critical Care patient: No - Discharge Referral Referred to [facility] Med [facility] No
[2019-08-02] MEDS: predniSONE 20 MG TABLET (UD) PO SCH ×2 (12:27→21:13)
--- NOTE | 2019-08-02 14:27 | PN ---
Progress Note (short form) - Note Progress Note: Coverage for Dr. Meli Gaona Chief Complaint: Events noted, notes reviewed, reports persistence of dyspnea, reports persistence of cough History of Present Illness: Seen and examined on telemetry. Events noted, notes reviewed, reports persistence of dyspnea, reports persistence of cough Echocardiography revealed normal ventricular size and systolic function with mild mitral and tricuspid valve regurgitation - Current Medication List Current Medications Acetaminophen (Tylenol -) 650 mg PO Q4H PRN PRN Reason: PAIN LEVEL 6-10 Albuterol/Ipratropium (Duoneb -) 1 amp NEB RQID [facility] Last Admin: 08/02/19 11:25 Dose: 1 amp Apixaban (Eliquis -) 5 mg PO BID [facility] Last Admin: 08/02/19 10:30 Dose: 5 mg Atenolol (Tenormin -) 100 mg PO DAILY [facility] Last Admin: 08/02/19 10:34 Dose: Not Given Benzocaine/Menthol (Cepacol Lozenge -) 1 each MM PRN PRN PRN Reason: SORE THROAT Last Admin: 08/01/19 21:41 Dose: 1 each Budesonide/Formoterol Fumarate (Symbicort 80/4.5mcg -) 2 puff IH BID [facility] Last Admin: 08/02/19 10:30 Dose: 2 puff Chlorthalidone (Hygroton -) 25 mg PO DAILY [facility] Last Admin: 08/02/19 10:30 Dose: 25 mg Levalbuterol HCl (Xopenex) 0.31 mg IH Q8H PRN PRN Reason: ASTHMA Pantoprazole Sodium (Protonix -) 40 mg PO DAILY [facility] Last Admin: 08/02/19 10:30 Dose: 40 mg Prednisone (Deltasone -) 20 mg PO BID [facility] Last Admin: 08/02/19 12:27 Dose: Not Given Review of Systems - Review of Systems Constitutional: no symptoms reported Respiratory: reports Cough and Sputum Production Cardiovascular: as noted above Gastrointestinal: denies Nausea, Vomiting, Diarrhea, Constipation or Abdominal Pain Genitourinary: no symptoms reported Musculoskeletal: no symptoms reported Endocrine: no symptoms reported - Objective Vital Signs: Last Vital Signs Temp Pulse Resp BP Pulse Ox 98.7 F 55 L 18 136/62 94 L 08/02/19 10:00 08/02/19 10:00 08/02/19 10:00 08/02/19 10:00 08/02/19 10:00 Intake & Output 07/30/19 07/31/19 08/01/19 08/02/19 23:59 23:59 23:59 23:59 Intake Total 900 200 Output Total 1550 Balance -650 200 Weight 186 lb 179 lb 4 oz 178 lb Neck: Supple Negative JVD No Bruit Cardiovascular: S1 S2 Regular Rate and Rhythm Respiratory: Bilateral scattered rhonchi Gastrointestinal: Soft Benign Normal Bowel Sounds Extremities: Negative edema Labs: CBC, BMP 08/02/19 05:20 08/02/19 05:20 Hepatic Panel Total Bilirubin 0.2 mg/dL (0.2-1) 08/01/19 05:20 AST 28 U/L (15-37) 08/01/19 05:20 ALT 38 U/L (13-61) 08/01/19 05:20 Alkaline Phosphatase 51 U/L (45-117) 08/01/19 05:20 Albumin 3.5 g/dl (3.4-5.0) 08/01/19 05:20 Assessment/Plan ASSESSMENT: 1. Clinical presentation is consistent with influenza B complicated by probable bronchitis 2. Coronary artery disease angina pectoris 3. Diastolic left ventricular dysfunction with clinical class 0 [place] [employer] classification left ventricular failure 4. Paroxysmal atrial fibrillation [id number] score of 5 on anticoagulation therapy with DOAC's/Eliquis 5. Hypertensive cardiovascular disease 6. Diabetes mellitus 7. Hypercholesterolemia 8. Chronic kidney disease PLAN: 1. Continue anticoagulation therapy with DOAC's/Eliquis- adequate dosage ( creatinine less than 1.5 and weight greater than 60 kg) 2. Continue Atenolol 3. Consider the addition of REJI inhibitor or angiotensin receptor gricelda therapy unless it is absolutely contraindicated 4. Consider the addition of Lipitor therapy 5. Antibiotics, antiviral- influenza B treatment, bronchodilators and steroids as per the primary and the pulmonary team Josue Dhillon MD
[2019-08-02 15:38] VITALS: BMI 31.5
--- NOTE | 2019-08-02 17:30 | EKG ---
Test Reason : Blood Pressure : / mmHG Vent. Rate : 057 BPM Atrial Rate : 057 BPM P-R Int : 164 ms QRS Dur : 094 ms QT Int : 448 ms P-R-T Axes : 063 037 105 degrees QTc Int : 436 ms SINUS BRADYCARDIA WITH SINUS ARRHYTHMIA T WAVE ABNORMALITY, CONSIDER LATERAL ISCHEMIA ABNORMAL ECG WHEN COMPARED WITH ECG OF 31-JUL-2019 20:47, VENT. RATE HAS DECREASED BY [address] NO LONGER DEPRESSED IN LATERAL LEADS NONSPECIFIC T WAVE ABNORMALITY HAS REPLACED INVERTED T WAVES IN INFERIOR LEADS CLINICAL CORRELATION IS RECOMMENDED Confirmed by CHERYL ARVIZU, ROSAURA ([id number]) on 08/02/2019 5:29:53 PM Referred By: Nan GALLARDO Confirmed By:ROSAURA LUNA MD
[2019-08-03] MEDS: ALBUTEROL SO4 2.5/IPRATROPIUM 0.5 INH SOL 3 ML VIAL.NEB. NEB SCH ×3 (08:30→16:08)
--- NOTE | 2019-08-03 08:42 | PN ---
Teaching Attending Note Name of Resident: Carey Wiley ATTENDING PHYSICIAN STATEMENT I saw and evaluated the patient. I reviewed the resident's note and discussed the case with the resident. I agree with the resident's findings and plan as documented. SUBJECTIVE: Feels improved remained afebrile OBJECTIVE: Vital Signs Temperature 98.6 F 08/03/19 06:00 Pulse Rate 57 L 08/03/19 06:00 Respiratory Rate 18 08/03/19 06:00 Blood Pressure 142/59 L 08/03/19 06:00 O2 Sat by Pulse Oximetry (%) 95 08/02/19 21:00 General: Elderly woman, comfortable, not in distress HEENT; mucous membranes moist, no anemia, no jaundice, PERRLA, no nystagmus Neck: No JVD, supple, no bruit, thyroid palpably normal, normal carotid pulsations. Chest: Nontender, minimal bilateral basal wheezes CVS: S1-S2 regular no murmur/gallop/rub Abdomen: Nondistended, soft, bowel sounds present. Extremities: No edema., No cough tenderness, pulses present [employer]: AO X3 , no gross motor sensory deficit CBC, BMP 08/02/19 05:20 08/02/19 05:20 Active Medications Acetaminophen (Tylenol -) 650 mg PO Q4H PRN PRN Reason: PAIN LEVEL 6-10 Albuterol/Ipratropium (Duoneb -) 1 amp NEB RQID [facility] Last Admin: 08/03/19 08:30 Dose: 1 amp Apixaban (Eliquis -) 5 mg PO BID [facility] Last Admin: 08/02/19 21:13 Dose: 5 mg Atenolol (Tenormin -) 100 mg PO DAILY [facility] Last Admin: 08/02/19 10:34 Dose: Not Given Benzocaine/Menthol (Cepacol Lozenge -) 1 each MM PRN PRN PRN Reason: SORE THROAT Last Admin: 08/01/19 21:41 Dose: 1 each Budesonide/Formoterol Fumarate (Symbicort 80/4.5mcg -) 2 puff IH BID [facility] Last Admin: 08/02/19 21:14 Dose: 2 puff Chlorthalidone (Hygroton -) 25 mg PO DAILY [facility] Last Admin: 08/02/19 10:30 Dose: 25 mg Levalbuterol HCl (Xopenex) 0.31 mg IH Q8H PRN PRN Reason: ASTHMA Pantoprazole Sodium (Protonix -) 40 mg PO DAILY [facility] Last Admin: 08/02/19 10:30 Dose: 40 mg Prednisone (Deltasone -) 20 mg PO BID [facility] Last Admin: 08/02/19 21:13 Dose: 20 mg ASSESSMENT AND PLAN: 84 years old man history of CAD, diastolic dysfunction, peripheral atrial fibrillation on no anticoagulation, type 2 diabetes mellitus, CKD stage III, hypercholesterolemia presents with worsening shortness of breath with reactive airway disease secondary to influenza B bronchitis. Improved on current management Plan: Continue current management evaluation PT for possible discharge Problem List - Problems (1) Shortness of breath Assessment/Plan: Due to reactive airway disease secondary to influenza infection, evaluate for desaturation, continue pulmonary recommendations, continue p.o. prednisone and bronchodilators. Code(s): R06.02 - SHORTNESS OF BREATH (2) Reactive airway disease Assessment/Plan: Due to viral infection continue pulmonary recommendations. Problems reviewed: Yes Code(s): J45.909 - UNSPECIFIED ASTHMA, UNCOMPLICATED (3) Influenza B Assessment/Plan: Completed Tamiflu Problems reviewed: Yes Code(s): J10.1 - FLU DUE TO OTH IDENT INFLUENZA VIRUS W OTH RESP MANIFEST (4) Atrial fibrillation Assessment/Plan: Rate controlled on anticoagulation Problems reviewed: Yes Code(s): I48.91 - UNSPECIFIED ATRIAL FIBRILLATION Qualifiers: Atrial fibrillation type: paroxysmal Qualified Code(s): I48.0 - Paroxysmal atrial fibrillation (5) CAD (coronary artery disease) Assessment/Plan: Stable continue home medications Problems reviewed: Yes Code(s): I25.10 - ATHSCL HEART DISEASE OF [place] CORONARY ARTERY W/O ANG PCTRS (6) Diabetes Assessment/Plan: Optimize glycemic control on prednisone. Problems reviewed: Yes Code(s): E11.9 - TYPE 2 DIABETES MELLITUS WITHOUT COMPLICATIONS (7) Diastolic CHF Assessment/Plan: Compensated no acute issue Problems reviewed: Yes Code(s): I50.30 - UNSPECIFIED DIASTOLIC (CONGESTIVE) HEART FAILURE (8) Hypertension Assessment/Plan: Well-controlled continue current medications Problems reviewed: Yes Code(s): I10 - ESSENTIAL (PRIMARY) HYPERTENSION Qualifiers: Hypertension type: unspecified Qualified Code(s): I10 - Essential (primary ) hypertension
[2019-08-03] MEDS: APIXABAN 5 MG TABLET PO SCH (09:59)
[2019-08-03] MEDS: predniSONE 20 MG TABLET (UD) PO SCH (09:59)
[2019-08-03] MEDS: CHLORTHALIDONE 25 MG TABLET PO SCH (09:59)
[2019-08-03] MEDS: ATENOLOL 50 MG TABLET (FP) PO SCH (10:00)
[2019-08-03] MEDS: PANTOPRAZOLE 40 MG TABLET (FP) PO SCH (10:00)
[2019-08-03] MEDS: BUDESONIDE/FORMETEROL FUMARATE 80/4.5 mcg INHALER IH SCH (10:00)
--- NOTE | 2019-08-03 12:01 | PN ---
Progress Note (short form) - Note Progress Note: PULMONARY States breathing is improving. Coughing less. No fevers. Vital Signs Period Temp Pulse Resp BP Sys/Bates Pulse Ox Last 24 Hr 97.6 F-98.6 F 57-66 18-18 131-154/51-85 95-100 Gen: NAD at rest Heart: RRR Lung: decreased breath sounds at the bases Abd: soft, nontender Ext: no edema CBC, BMP 08/02/19 05:20 08/02/19 05:20 Active Medications Acetaminophen (Tylenol -) 650 mg PO Q4H PRN PRN Reason: PAIN LEVEL 6-10 Albuterol/Ipratropium (Duoneb -) 1 amp NEB RQID [facility] Last Admin: 08/03/19 08:30 Dose: 1 amp Apixaban (Eliquis -) 5 mg PO BID [facility] Last Admin: 08/03/19 09:59 Dose: 5 mg Atenolol (Tenormin -) 100 mg PO DAILY [facility] Last Admin: 08/03/19 10:00 Dose: 100 mg Benzocaine/Menthol (Cepacol Lozenge -) 1 each MM PRN PRN PRN Reason: SORE THROAT Last Admin: 08/01/19 21:41 Dose: 1 each Budesonide/Formoterol Fumarate (Symbicort 80/4.5mcg -) 2 puff IH BID [facility] Last Admin: 08/03/19 10:00 Dose: 2 puff Chlorthalidone (Hygroton -) 25 mg PO DAILY [facility] Last Admin: 08/03/19 09:59 Dose: 25 mg Levalbuterol HCl (Xopenex) 0.31 mg IH Q8H PRN PRN Reason: ASTHMA Pantoprazole Sodium (Protonix -) 40 mg PO DAILY [facility] Last Admin: 08/03/19 10:00 Dose: 40 mg Prednisone (Deltasone -) 20 mg PO BID [facility] Last Admin: 08/03/19 09:59 Dose: 20 mg A/P Influenza B LV Diastolic Dysfunction CAD Paroxysmal Atrial Fibrillation HTN DM Hypercholesterolemia CKD - inhaled bronchodilators - O2 to keep SpO2 >90% - short course of prednisone - rate controlled - continue anticoagulation
[2019-08-03 14:03] VITALS: BP 150/56; PULSE 51; TEMP 98.9
--- NOTE | 2019-08-03 17:46 | DS ---
Physical Exam: SUBJECTIVE: Patient seen and examined at bedside. States breathing is better. Ready to go home. In good spirits . Case discussed at length w/ daughter over phone. OBJECTIVE: Vital Signs Period Temp Pulse Resp BP Sys/Bates Pulse Ox Last 24 Hr 97.6 F-98.9 F 51-66 18-18 131-154/51-85 95-100 PHYSICAL EXAM General: OOB in chair, in NAD HEENT; mucous membranes moist, no anemia, no jaundice, PERRLA, no nystagmus Neck: No JVD, supple, no bruit, thyroid palpably normal, normal carotid pulsations. Chest: Nontender, minimal bilateral basal wheezes CVS: S1-S2 regular no murmur/gallop/rub Abdomen: Nondistended, soft, bowel sounds present. Extremities: No edema, 2+ pulses [employer]: AO X3 , no gross motor sensory deficit LABS 07/31/19 08/01/19 08/02/19 20:30 05:20 05:20 WBC 5.5 3.1 L 6.9 Hgb 13.3 12.6 12.5 Hct 39.6 36.6 36.9 Plt Count 227 D 219 223 MPV 8.2 8.4 8.5 07/31/19 20:30 PT with INR 11.80 INR 1.00 PTT (Actin FS) 36.1 07/31/19 07/31/19 07/31/19 18:00 20:30 20:30 Sodium Potassium Chloride Carbon Dioxide Anion Gap BUN 22.9 H Creatinine Random Glucose 162 H Hemoglobin A1c % Calcium Phosphorus Magnesium Total Bilirubin 0.3 AST 35 ALT 39 Alkaline Phosphatase 55 Creatine Kinase 160 Creatine Kinase Index 1.1 CK-MB (CK-2) 1.8 Troponin I < 0.02 B-Natriuretic Peptide Total Protein Albumin Triglycerides Cholesterol Total LDL Cholesterol HDL Cholesterol TSH Influenza A (Rapid) Negative Influenza B (Rapid) Positive A 08/01/19 08/01/19 08/01/19 05:20 05:20 05:20 Sodium 136 Potassium 4.2 Chloride 102 Carbon Dioxide 26 Anion Gap 8 BUN 20.1 H Creatinine 1.1 Random Glucose Hemoglobin A1c % Calcium 8.3 L Phosphorus 3.5 Magnesium 1.9 Total Bilirubin 0.2 AST 28 ALT 38 Alkaline Phosphatase 51 Creatine Kinase Creatine Kinase Index CK-MB (CK-2) Troponin I 0.02 B-Natriuretic Peptide 204.7 Total Protein 7.6 Albumin 3.5 Triglycerides 54 Cholesterol 136 Total LDL Cholesterol 73 HDL Cholesterol 52 TSH Influenza A (Rapid) Influenza B (Rapid) 08/02/19 08/02/19 05:20 05:20 Sodium 135 L Potassium 4.7 Chloride 102 Carbon Dioxide 26 Anion Gap 7 L BUN 45.3 H Creatinine 1.3 Random Glucose 161 H Hemoglobin A1c % 5.9 Calcium 8.2 L Phosphorus Magnesium Total Bilirubin AST ALT Alkaline Phosphatase Creatine Kinase Creatine Kinase Index CK-MB (CK-2) Troponin I B-Natriuretic Peptide Total Protein Albumin Triglycerides Cholesterol Total LDL Cholesterol HDL Cholesterol TSH 0.47 Influenza A (Rapid) Influenza B (Rapid) Imaging 08/01: ECHO: suboptimal study, LVSF normal, EF 70%, impaired LV relaxation. trace to mild TR, moderate , no pericardial effusion 07/31/19: CXR: large heart, tracheal deviation to right, congestive changes. 07/31/19: EKG: NSR, rate 97bpm, qtc 469ms. twi in inferior leads 08/02/19: EKG: sinus jaiden 59bpm, qtc 436ms , twi in inferior leads HOSPITAL COURSE: Date of Admission:07/31/19 Date of Discharge: 08/03/19 84 F w/ h/o HFpEF, obesity, HTN, ?COPD/Asthma, Afib on Xarelto, OA, presents with URI and found to be positive for Influenza B, out of range for treatment at this time. Improved overnight after nebs and supportive care. Influenza B infection out of window for Tamiflu (patient endorses symptoms going on for about 7-10 days) Droplet isolation, notified family members of Flu diagnosis and advised them to see their PCP if they develop symptoms Tylenol PRN for fever, cont. IV hydration, supportive care ?Asthma/COPD Was told by her PCP in she "may" have obstructive lung disease, never worked up, patient improved with neb treatments would be reasonable for her to establish care with Pulmonary to follow up d/c home on symbicort CANDACE, ventolin PRN prednisone taper, protonix GI PPX Pulmonary consult: Dr. Pulido HFpEF not in acute exacerbation, euvolemic, BNP 204, obtain daily weights, monitor I/ Os Eliquis for AC for Afib (CHADSVASC score is 4) Will start Atenolol/Chlorthalidon. hold Amiodarone, seen by cardio c/w home lipitor Cardiology: Dr. Gaona HTN -c/w Atenolol/Chlorthalidone for BP control -have dc home hydrochlorothiazide Paroxysmal Afib On Eliquis for AC, rate controlled Echo shows normal EF w/ diastolic dysfunction c/w atenolol for BB will f/u with PCP, cardio, pulm on d/c discussed plan w/ patient and daughter over phone Minutes to complete discharge: 56 Discharge Summary Problems reviewed: Yes Reason For Visit: WHEEZING ON BOTH SIDES OF CHEST, INFLUENZA DUE TO Condition: Fair - Instructions Diet, Activity, Other Instructions: You were in the hospital because you had shortness of breath, wheezing. You were found to have the flu. You were seen by a costume mistress (heart doctor), pulmonary doctor (lung doctor), and the primary team. You improved and are being sent home. Medications Please take the following medications: 1. Prednisone taper (steroid): take 40mg for 3 days starting tomorrow (08/04-08/06) 30mg x 3 days (08/07-08/09) 20mg x 3 days (08/10-08/12) 10mg x 3 days (08/13-08/15) 2. Inhalers: symbicort 1 puff twice a day (scheduled), ventolin (albuterol) every 4 hours as needed for shortness of breath 3.eliquis 5mg twice a day (this is a blood thinner) since you have a fast heart rate 4. atenolol 100mg daily (for blood pressure) 5. chlorthalidone 25mg daily (for blood pressure) 6. protonix 40 mg daily (acid suppressant) - you must take this while you are on the steroid course this month 7. your home medication: also continue allopurinol 300mg daily. VERY IMPORTANT NOTE: do not take irbesartan, hydrochlorothiazide, amiodarone, aspirin, diltiazem, coumadin/warfarin, valsartan, hydrochlorothiazide and metoprolol. these meds have been discontinued. you must discuss this immediately with your primary care doctor this week. Follow up Please follow with the following doctors on discharge: -primary care doctor, we are referring you to Dr. Huynh - 1 week. please see him as soon as possible to discuss your visit -lung doctor (pulmonary), Dr. Pulido- this week -costume mistress (heart doctor), Dr. Dhillon - this Referrals: Josue Dhillon MD [Staff Physician] - 1 Week Russell Abreu MD [Staff Physician] - 1 Week Osei Pulido MD, MD [Staff Physician] - 1 Week Disposition: HOME - Home Medications Comprehensive Discharge Medication List: Ambulatory Orders Atorvastatin Ca [Lipitor] 40 mg PO HS #30 tablet 10/10/16 Allopurinol 300 mg PO DAILY 07/31/19 Atenolol/Chlorthalidone [Atenolol-Chlorthalidone 100-25] 1 tab PO DAILY Albuterol Sulfate Inhaler - [Ventolin Hfa Inhaler -] 1 puff IH Q4H #2 inhaler Apixaban [Eliquis -] 5 mg PO BID #60 tablet 08/03/19 Atenolol [Tenormin -] 100 mg PO DAILY #30 tablet 08/03/19 Budesonide/Formeterol Fumarate [SYMBICORT 80/4.5mcg -] 2 puff IH BID #2 inhaler 08/03/19 Chlorthalidone [Hygroton -] 25 mg PO DAILY #30 tablet 08/03/19 Pantoprazole Sodium [Protonix -] 40 mg PO DAILY #30 tablet.ec 08/03/19 predniSONE [Deltasone -] 10 mg PO ASDIR #30 tablet 08/03/19 This patient is new to me today: Yes Date on this admission: 08/03/19 Emergency Visit: No Critical Care patient: No - Discharge Referral Referred to [facility] Yes Physician Referral: Russell Huynh MD ([facility])
== END 2019-08-03 17:15 | disposition home or self-care (01) | DRG 113 ==
LOC: JER 17:48 → JERBED 21:33 → J4S 08-01 02:25
PROVIDERS: ADMIT Internal Medicine; ATTEND Internal Medicine
DX: J10.1 Influenza due to other identified influenza virus with other respiratory manifestations (principal); I48.0 Paroxysmal atrial fibrillation; E66.9 Obesity, unspecified; Z68.31 Body mass index [BMI] 31.0-31.9, adult; R94.31 Abnormal electrocardiogram [ECG] [EKG]; N28.1 Cyst of kidney, acquired; R06.02 Shortness of breath; I25.119 Atherosclerotic heart disease of native coronary artery with unspecified angina pectoris; I13.0 Hypertensive heart and chronic kidney disease with heart failure and stage 1 through stage 4 chronic kidney disease, or unspecified chronic kidney disease; E11.22 Type 2 diabetes mellitus with diabetic chronic kidney disease; N18.9 Chronic kidney disease, unspecified; I50.30 Unspecified diastolic (congestive) heart failure; J44.9 Chronic obstructive pulmonary disease, unspecified
CPT/HCPCS: 36415; 71045-TC-FY; 80048; 80053; 80061; 82550; 82553; 83036; 83721; 83735; 83880; 84100; 84443; 84484; 84550; 85025; 85610; 85730; 87804; 93005; 93010; 93306-TC; 94640; 97116-GP; 97161-GP; 99283-25

== ENCOUNTER 2019-09-25 18:37 | Emergency (ER) | payer OTHER ==
--- NOTE | 2019-09-25 18:44 | PDOC ---
Rapid Medical Evaluation Medical Evaluation: Allergies Allergy/AdvReac Type Severity Reaction Status Date / Time No Known Allergies Allergy Verified 09/25/19 18:43 Vital Signs Temp Pulse Resp BP Pulse Ox 98 F 62 18 145/52 L 100 09/25/19 18:38 09/25/19 18:38 09/25/19 18:38 09/25/19 18:38 09/25/19 18:38 I have performed a brief in-person evaluation of this patient. The patient presents with a chief complaint of: C/O L forearm pain x 3 days; denies trauma; unsure if she maybe slept wrong on that arm Pertinent physical exam findings: In NAD, no deformity; 5/5 strength of LUE; no deformity or swelling I have ordered the following: Xray The patient will proceed to the ED for further evaluation. 09/25/19 18:43
[2019-09-25 18:54] VITALS: BP 145/52; PULSE 62; TEMP 98; BMI 28.5
--- NOTE | 2019-09-25 20:45 | PDOC ---
History of Present Illness - General Chief Complaint: Pain Stated Complaint: LT ARM PAIN Time Seen by Provider: 09/25/19 18:39 - History of Present Illness Initial Comments: 09/25/19 20:43 84-year-old female with multiple comorbidities presents for evaluation of left forearm pain. She is 10 years status post left forearm both bone forearm fracture with open reduction internal fixation done in [place] Past History - Past Medical History Allergies/Adverse Reactions: Allergies Allergy/AdvReac Type Severity Reaction Status Date / Time No Known Allergies Allergy Verified 09/25/19 18:43 Home Medications: Ambulatory Orders Atorvastatin Ca [Lipitor] 40 mg PO HS #30 tablet 10/10/16 Allopurinol 300 mg PO DAILY 07/31/19 Atenolol/Chlorthalidone [Atenolol-Chlorthalidone 100-25] 1 tab PO DAILY Albuterol Sulfate Inhaler - [Ventolin Hfa Inhaler -] 1 puff IH Q4H #2 inhaler Apixaban [Eliquis -] 5 mg PO BID #60 tablet 08/03/19 Atenolol [Tenormin -] 100 mg PO DAILY #30 tablet 08/03/19 Budesonide/Formeterol Fumarate [SYMBICORT 80/4.5mcg -] 2 puff IH BID #2 inhaler 08/03/19 Chlorthalidone [Hygroton -] 25 mg PO DAILY #30 tablet 08/03/19 Pantoprazole Sodium [Protonix -] 40 mg PO DAILY #30 tablet.ec 08/03/19 predniSONE [Deltasone -] 10 mg PO ASDIR #30 tablet 08/03/19 COPD: No HTN: Yes - Surgical History Abdominal Surgery: Yes Orthopedic Surgery: Yes (ARM) - Psycho Social/Smoking Cessation Hx Smoking History: Never smoked Have you smoked in the past 12 months: No Hx Alcohol Use: No Drug/Substance Use Hx: No Substance Use Type: None Hx Substance Use Treatment: No Review of Systems - Review of Systems Musculoskeletal: Yes: See HPI *Physical Exam - Vital Signs Last Vital Signs Temp Pulse Resp BP Pulse Ox 98 F 62 18 145/52 L 100 09/25/19 18:38 09/25/19 18:38 09/25/19 18:38 09/25/19 18:38 09/25/19 18:38 - Physical Exam 09/25/19 20:44 Left forearm skin color and temperature normal range of motion of the wrist and elbow is slightly limited but nonpainful. Mild tenderness over the distal aspect of the forearm. Compartments are soft and nontender there are no gross sensorimotor deficits neurovascular intact. Medical Decision Making - Medical Decision Making 09/25/19 20:44 X-rays of the left forearm show hardware on the distal third of the left radius and ulna. It appears that the plate on the ulna has come loose. 09/25/19 20:44 Painful hardware follow-up with orthopedic surgery Discharge - Discharge Information Problems reviewed: Yes Clinical Impression/Diagnosis: Painful orthopaedic hardware Condition: Stable Disposition: HOME - Admission No - Follow up/Referral Referrals: Barry Coronel DO [Staff Physician] - - Patient Discharge Instructions Additional Instructions: Tylenol as discussed for pain. Follow-up with orthopedic surgery in 2 to 3 days without fail and return to the emergency room should symptoms worsen. - Post Discharge Activity
== END 2019-09-25 21:14 | disposition home or self-care (01) ==
LOC: JERFT 18:37 → JER 18:37 → JERFT 21:14
DX: T84.84XA Pain due to internal orthopedic prosthetic devices, implants and grafts, initial encounter (principal); I10 Essential (primary) hypertension
CPT/HCPCS: 73090-TC-LT-FY; 99283-25

== ENCOUNTER 2020-05-07 20:54 | Emergency (ER) | payer OTHER ==
[2020-05-07 21:12] VITALS: BP 168/57; PULSE 62; TEMP 97.4; BMI 31.6
--- OUTSIDE RECORDS SUMMARY | 2020-05-07 21:12 | XMS ---
:1935 Author Organization [facility] Care Team Providers Name Role Phone ANH Unavailable Unavailable Prasanna Unavailable [phone] Jonah Unavailable [phone] Menla Unavailable Unavailable Menla Unavailable Unavailable Menla Unavailable Unavailable Menla Unavailable Unavailable Menla Unavailable Unavailable Menla Unavailable Unavailable MENLA ARCHIE Unavailable Unavailable ARCHER Unavailable Unavailable Archer Unavailable Unavailable Archer Unavailable Unavailable Archer Unavailable Unavailable Archer Unavailable Unavailable Re-disclosure Warning The records that you are about to access may contain information from federally- assisted alcohol or drug abuse programs. If such information is present, then the following federally mandated warning applies: This information has been disclosed to you from records protected by federal confidentiality rules (42 CFR part 2). The federal rules prohibit you from making any further disclosure of this information unless further disclosure is expressly permitted by the written consent of the person to whom it pertains or as otherwise permitted by 42 CFR part 2. A general authorization for the release of medical or other information is NOT sufficient for this purpose. The Federal rules restrict any use of the information to criminally investigate or prosecute any alcohol or drug abuse patient.The records that you are about to access may contain highly sensitive health information, the redisclosure of which is protected by Article 27-F of the [facility] Public Health law. If you continue you may haveaccess to information: Regarding HIV / AIDS; Provided by facilities licensed or operated by the [facility] Office of Mental Health; or Provided by the [facility] Office for People With Developmental Disabilities. If such information is present, then the following [facility] mandated warning applies: This information has been disclosed to you from confidential records which are protected by state law. State law prohibits you from making any further disclosure of this information without the specific written consent of the person to whom it pertains, or as otherwise permitted by law. Any unauthorized further disclosure in violation of state law may result in a fine or group home sentence or both. A general authorization for the release of medical or other information is NOT sufficient authorization for further disclosure. Allergies and Adverse Reactions Type Description Substance Reaction Status Data Source(s ) Propensity to Propensity to Propensity to NEXTG EN ([facility] adverse reactions adverse reactions adverse reactions [facility] (disorder) (disorder) (disorder) [place]) No Information No Information No Information eC W1 [facility] ) No Known Allergies No Known Allergies No Known Allergies eCW1 ([facility]) Encounters Encounter Providers Location Date Indications Data Source(s ) Attender: Archie [address] [place] [address] 04/26/2020 NEXT (S aint Menla 03:44:00 [facility] - Center) 04/26/2020 03:44:00 PM EDT Attender: [facility] 04/17/2020 DELILAH N ([facility] 04:31:00 [facility] PM EDT - Center) 04/17/2020 04:31:00 PM EDT Outpatient Attender: SHANA More 04/03/2020 [facility] FULLERdmitter: 12:22:00 Medical Ce nter SHANA PM EDT MEHANNAAReferrer: SHANA ARCHER OutpatientOFFICE/ Attender: Archie [address] [place] [address] 04/03/2020 NEX TGEN ([facility] OUTPATIENT VISIT, Menla 12:22:00 [facility] Medical EST PM EDT - Center) 04/03/2020 12:22:00 PM EDT Outpatient 04/03/2020 [facility] 11:59:00 Medical Center AM EDT Outpatient 04/03/2020 [facility] 12:00:00 Medical Center AM EDT Attender: [facility] 03/26/2020 NEXTGEN ([facility] 10:10:00 [facility] AM [facility]T - Center) 03/26/2020 10:10:00 AM EDT Attender: [facility] 01/31/2020 NEXTGEN ([facility]int [facility] 11:25:00 [facility] AM EDT - Center) 01/31/2020 11:25:00 AM EDT Attender: [facility] 01/09/2020 NEXTGEN ([facility] aint [facility] 01:19:00 [facility] PM EDT - Center) 01/09/2020 01:19:00 PM EDT Attender: [facility] 12:56:00 [facility] PM EDT - Center) 12/27/2019 12:56:00 PM EDT Outpatient 12/20/2019 [facility] 11:01:00 Medical Center AM EDT Outpatient Attender: SHANA H 12/20/2019 [facility] MEAAdmitter: 09:59:00 Medical Ce nter SHANA AM EDT MEJIAReferrer: SHANA ARCHER OutpatientOFFICE/ Attender: Archie [address] [place] [address] 12/20/2019 NEX TGEN ([facility] OUTPATIENT VISIT, Menla 09:59:00 [facility] AM EDT - Center) 12/20/2019 09:59:00 AM EDT Outpatient 12/20/2019 [facility] 12:00:00 Medical Center AM EDT Outpatient 12/13/2019 [facility] 12:43:00 Medical Center PM EDT Outpatient Attender: SHANA H 12/13/2019 [facility] MEJIAAdmitter: 10:11:00 Medical Ce nter SHANA AM EDT MEJIAReferrer: SHANA ARCHER OutpatientOFFICE/ Attender: Archie [address] [place] [address] 12/13/2019 NEX TGEN ([facility] OUTPATIENT VISIT, Menla 10:11:00 [facility] AM EDT - Center) 12/13/2019 10:11:00 AM EDT Outpatient 12/13/2019 [facility] 12:00:00 Medical Center AM EDT Attender: [facility] 12/11/2019 NEXTGEN ( [facility] Archer 10:04:00 [facility] AM EDT - Center) 12/11/2019 10:04:00 AM EDT Attender: [facility] 12/04/2019 NEXTGEN ([facility] 04:36:00 [facility] PM EDT - Center) 12/04/2019 04:36:00 PM EDT Attender: Archie [facility] 12:03:00 [facility] PM [facility]T - Center) 11/29/2019 12:03:00 PM EDT Attender: Archie [facility] 11/08/2019 [facility] ([facility]int [facility] 03:41:00 [facility] PM EDT - Center) 11/08/2019 03:41:00 PM EDT Attender: Archie [facility] 11/07/2019 [facility] (S aint [facility] 02:37:00 [facility] PM EDT - Center) 11/07/2019 02:37:00 PM EDT Attender: Mateo [facility] 10/18/2019 [facility] ( [facility] - Center) 10/18/2019 12:02:00 PM EDT Outpatient 10/17/2019 [facility] 12:15:[address] [facility] PM EDT Outpatient 10/17/2019 [facility] 12:00:[address] [facility] AM EDT [address] 10/13/2019 eCW1 ([facility] Av.Cardiovascula [facility] 12:00:00 [facility] AM EDT Practice PC ) Outpatient 09/18/2019 [facility] 06:01:[address] [facility] PM EST Outpatient Attender: [facility]CHIE [facility] [facility] MIKEAdmitter: AM EST ARCHIE Billingsleyferrer: ARCHIE ALMANZA OutpatientOFFICE/ Attender: Archie Noriega [facility] 09/18/2019 NEX TGEN ([facility] VISIT, Felix 11:06:00 [facility] AM EST - Center) 09/18/2019 11:06:00 AM EST Outpatient 09/18/2019 [facility] 12:00:00 Medical Center AM EST Outpatient 09/15/2019 [facility] 01:16:00 Medical Center PM EST Outpatient 09/15/2019 [facility] 12:00:00 Medical Center AM EST Attender: Archie [address] 09/06/2019 [facility] (S aint Menla 12:51:00 [facility] Medic l PM EST - Center) 09/06/2019 12:51:00 PM EST Outpatient 08/17/2019 [facility] 05:03:00 Medical [place] PM EST Outpatient Attender: ARCHIE More 08/17/2019 [facility] Sathya [facility] MENLA 11:28:[address] [facility] MIKEAdmitter: AM EST ARCHIE Machadorer: ARCHIE ALMANZA OutpatientOFFICE/ Attender: Archie [address] 08/17/2019 NEX TGEN ([facility] OUTPATIENT VISIT, Menla 11:28:00 [facility] AM EST - Center) 08/17/2019 11:28:00 AM EST Outpatient 08/17/2019 [facility] 12:00:00 Medical [place] AM EST Outpatient 08/14/2019 [facility] 12:24:[address] [facility] PM EST Outpatient Attender: SATHYA More 08/14/2019 [facility] Sathya [facility] TAVERASAdmitter: 10:28:[address] [facility] SATHYA AM EST TAVERASReferrer: SATHYA KAMARA Attender: Mateo 08/14/2019 [facility] ( [facility] [place] 10:28:00 [facility] AM EST - Center) 08/14/2019 10:28:00 AM EST [address] 08/14/2019 eCW1 ([facility] [address] [facility] 12:00:00 [facility] AM EST Practice PC ) Outpatient 08/14/2019 [facility] 12:00:00 Medical Center AM EST Outpatient Attender: ARCHIE More 08/10/2019 [facility] Sathya [facility] MENLA 03:40:00 [facility] Center MIKEAdmitter: PM EST ARCHIE Billingsleyferrer: ARCHIE ALMANZA OutpatientOFFICE/ Attender: Archie [address] 08/10/2019 NEX TGEN ([facility] OUTPATIENT VISIT, Menla 03:40:00 [facility] PM EST - Center) 08/10/2019 03:40:00 PM EST Outpatient 08/10/2019 [facility] 03:30:00 Medical Center PM EST Outpatient 08/10/2019 [facility] 02:37:00 Medical Center PM EST Outpatient 08/10/2019 [facility] 12:05:00 Medical Center PM EST Outpatient Attender: SATHYA More 08/10/2019 [facility] TAVERASAdmitter: 09:22:00 Medical Center SATHYA AM EST TAVERASReferrer: SATHYA KAMARA Attender: Maeto 08/10/2019 NEXTGEN ( [facility] Tommy Jonah 09:22:00 [facility] AM EST - Center) 08/10/2019 09:22:00 AM EST Outpatient 08/10/2019 [facility] 12:00:00 Medical [place] AM EST Outpatient 08/07/2019 [facility] 11:48:00 Medical [place] AM EST Outpatient 08/07/2019 [facility] 12:00:00 Medical [place] AM EST 11/16/2016 [facility] 12:00:00 Medical [place] AM EDT - 05/26/2015 12:00:00 AM EDT [address] 11/16/2016 eCW1 ([facility] MP 12:00:00 [facility] AM EDT Practice PC ) [address] 10/26/2016 eCW1 ([facility] [facility] 12:00:00 [facility] AM EDT Practice PC ) [address] 10/26/2016 eCW1 ([facility] [facility] 12:00:00 [facility] AM EDT Practice PC ) OutpatientOFFICE/ Attender: [address] 10/15/2016 NEX TGEN ([facility] OUTPATIENT VISIT, Menoh 12:16:00 [facility] PM EDT - Center) 10/15/2016 12:16:00 PM EDT OutpatientOFFICE/ Attender: [facility] 06/11/2015 NEXT GEN ([facility] OUTPATIENT VISIT, Juanita Mims [place] 09:41:00 [facility] Medical EST AM EST - Center) 06/11/2015 09:41:00 AM EST Immunizations Vaccine Date Status Description Data Source(s) No Known Immunizations completed eCW1 ([facility]) No Known Immunizations completed eCW1 ([facility]) Medications Medication Brand Start Product Dose Route Administrative Pharm[facility] Indications Reaction Description Data Name Date Form Instructions Instructions Source(s) Atenolol atenol ORAL active take 1 NEX TGEN 100 MG / ol 100 2019 {tabl tablet by (Sa int Chlorthalid mg-chl 12:00: et} oral rout e [facility] one 25 MG orthal 00 AM every day Me dical Oral Tablet [facility]) atenolol 25 mg 100 tablet mg-chlortha lidone 25 mg tablet Losartan losart ORAL active take 1 NEX TGEN Potassium an 100 2019 {tabl tablet by (S aint 100 MG Oral mg 12:00: et} oral route [facility] Tablet tablet 00 AM every day Medic [facility]) 100 mg tablet apixaban 5 Eliqui ORAL active apixaban 5 NEXTGEN MG Oral s 5 mg 2020 {tabl MG Oral ([facility] Tablet tablet 12:00: et} Tablet [facility] [Eliquis] 00 AM [Eliquis] [address]) mg tablet Losartan losart ORAL complet take 1 NE XTGEN Potassium an 100 2019 {tabl ed tablet by (S aint 100 MG Oral mg 12:00: et} oral route [facility] Tablet tablet 00 AM every day Medic [facility]) 100 mg tablet Atenolol atenol ORAL complet take 1 NE XTGEN 100 MG / ol 100 2019 {tabl ed tablet by (Sa int Chlorthalid mg-chl 12:00: et} oral rout e [facility] one 25 MG orthal 00 AM every day Me dical Oral Tablet [facility]) atenolol 25 mg 100 tablet mg-chlortha lidone 25 mg tablet apixaban 5 Eliqui ORAL complet apixaba n 5 NEXTGEN MG Oral s 5 mg 2020 {tabl ed MG Oral ([facility] Tablet tablet 12:00: et} Tablet [facility] [Eliquis] 00 AM [Eliquis] [address]) mg tablet atorvastati atorva ORAL active take 1 NEXTGEN n 40 MG statin 2019 {tabl tablet by (Lucio nt Oral Tablet 40 mg 12:00: et} oral route [facility] atorvastati tablet 00 AM every day Medical n 40 mg EDT Center) tablet apixaban 5 Eliqui ORAL complet apixaba n 5 NEXTGEN MG Oral s 5 mg 2020 {tabl ed MG Oral (Saint Tablet tablet 12:00: et} Tablet [facility] [Eliquis] 00 AM [Eliquis] Medi nhi Eliquis 5 EDT Center) mg tablet Atenolol atenol ORAL complet take 1 NE XTGEN 100 MG / ol 100 2019 {tabl ed tablet by (Sa int Chlorthalid mg-chl 12:00: et} oral rout e [facility] one 25 MG orthal 00 AM every day Me dical Oral Tablet idone EDT Center) atenolol 25 mg 100 tablet mg-chlortha lidone 25 mg tablet Acetaminoph Mapap ORAL active acetamin ophe NEXTGEN en 500 MG (aceta 2019 {caps n 500 MG (Sa int Oral minoph 12:00: ule} Oral Capsule Chaz ephs Capsule en) 00 AM [Mapap] Medical [Mapap] 500 mg EDT Center) Mapap capsul (acetaminop e hen) 500 mg capsule Furosemide furose ORAL active take 1 N EXTGEN 20 MG Oral mide 2019 {tabl tablet by (Sa int Tablet 20 mg 12:00: et} oral route Sathya phs furosemide tablet 00 AM every day M edical 20 mg EDT Center) tablet Atenolol atenol ORAL complet take 1 NE XTGEN 100 MG Oral ol 100 2019 {tbl} ed tablet by ([facility] Tablet mg 12:00: oral route Mike hs atenolol tablet 00 AM every day Med ical 100 mg EDT Center) tablet Amlodipine amlodi ORAL complet take 1 NEXTGEN 10 MG Oral pine 2019 {tbl} ed tablet by (Sa int Tablet 10 mg 12:00: oral route Sathya phs amlodipine tablet 00 AM every day M edical 10 mg EDT Center) tablet apixaban 5 Eliqui ORAL complet apixaba n 5 NEXTGEN MG Oral s 5 mg 2020 {tbl} ed MG Oral (Saint Tablet tablet 12:00: Tablet [facility] [Eliquis] 00 AM [Eliquis] [facility] Eliquis 5 EDT Center) mg tablet apixaban 5 Eliqui ORAL complet apixaba n 5 NEXTGEN MG Oral s 5 mg 2020 {tbl} ed MG Oral ([facility] Tablet tablet 12:00: Tablet [facility] [Eliquis] 00 AM [Eliquis] [facility] Eliquis 5 EDT Center) mg tablet Chlorthalid chlort ORAL complet take 1 NEXTGEN one 25 MG halido 2020 {tbl} ed tablet by (S aint Oral Tablet ne 25 12:00: oral route [facility] chlorthalid mg 00 AM every day Me dical one 25 mg tablet EDT Center) tablet Atenolol atenol ORAL complet take 1 NE XTGEN 100 MG Oral ol 100 2020 {tbl} ed tablet by (Saint Tablet mg 12:00: oral route Mike hs atenolol tablet 00 AM every day Med ical 100 mg EDT Center) tablet Omeprazole omepra ORAL active take 1 N EXTGEN 40 MG zole 2020 {caps capsule by (Saint Delayed 40 mg 12:00: ule} oral route Chaz ephs Release capsul 00 AM every day [facility] Oral e,medina EDT before a Center) Capsule yed meal omeprazole releas 40 mg e capsule,del ayed release Chlorthalid chlort ORAL complet take 1 NEXTGEN one 25 MG halido 2020 {tbl} ed tablet by (S aint Oral Tablet ne 25 12:00: oral route [facility] chlorthalid mg 00 AM every day Me dical one 25 mg tablet EDT Center) tablet rivaroxaban Xarelt 10/12/ active 1 table t eCW1 20 MG Oral o 20 2019 with food (Lucio nt Tablet MG 12:00: [facility] [Xarelto] 00 AM Medical Xarelto 20 EDT Practice MG PC) Guaifenesin Tussin . ORAL complet take 10 NEXTGEN 20 MG/ML 100 2020 mL ed milliliter (Kristen t Oral mg/5 12:00: by oral [facility] Solution mL 00 AM route every Me dical Tussin 100 oral EST [address]) mg/5 mL liquid needed oral liquid Amlodipine amlodi .00 ORAL complet take 1 NEXTGEN 10 MG Oral pine 2019 {tbl} ed tablet by (Sa int Tablet 10 mg 12:00: oral route Sathya phs amlodipine tablet 00 AM every day M edical 10 mg EST Center) tablet Losartan losart .00 ORAL complet take 1 NE XTGEN Potassium an 100 2019 {tbl} ed tablet by (S aint 100 MG Oral mg 12:00: oral route [facility] Tablet tablet 00 AM every day Medic al losartan EST Center) 100 mg tablet Medication administered onsite Atenolol atenolol 09/06/2019 1.00 ORAL completed t henrietta 1 NEXTGEN 100 MG Oral 100 mg 12:00:00 AM {tbl} tab let (Saint Tablet tablet EST by oral [facility] atenolol route Medical 100 mg every Center) tablet day Medication administered onsite Amlodipine amlodipine 09/06/2019 1.00 ORAL completed take 1 NEXTGEN 10 MG Oral 10 mg tablet 12:00:00 AM {tbl} tablet (Saint Tablet EST by oral [facility] amlodipine route Medical 10 mg tablet every Center ) day Medication administered onsite Chlorthalidone chlorthalidone 09/06/2019 1.00 ORAL completed take 1 NEXTGEN 25 MG Oral 25 mg tablet 12:00:00 AM {tbl} tablet by ([facility] Tablet EST oral [facility] chlorthalidone route Medi nhi 25 mg tablet every day Ce nter) Atenolol 100 MG atenolol 100 mg 09/06/2019 1.00 ORAL complet ed take 1 NEXTGEN Oral Tablet tablet 12:00:00 AM {tbl} tab let by ([facility] atenolol 100 mg EST oral Sathya phs tablet route Medical every day Center) Losartan losartan 100 mg 09/06/2019 1.00 ORAL completed take 1 NEXTGEN Potassium 100 tablet 12:00:00 AM {table tablet by ([facility] MG Oral Tablet EST t} oral Mike hs losartan 100 mg route Med ical tablet every day Center) Acetaminophen Mapap 08/17/2019 2.00 ORAL completed Acetamino NEXTGEN 500 MG Oral (acetaminophen) 12:00:00 AM {capsu phen 500 (Saint Capsule [Mapap] 500 mg capsule EST le} MG Oral [facility] Mapap Capsule Medical (acetaminophen) [Mapap] C enter) 500 mg capsule Atenolol 100 MG Atenolol-Chlort 08/14/2019 active 1 tablet eCW1 / halidone 100-25 12:00:00 AM ([facility] Chlorthalidone MG EST Mike hs 25 MG Oral Medical Tablet Practice Atenolol-Chlort ) halidone 100-25 MG Guaifenesin 100 UNK 08/14/2019 active 1 0 ml as eCW1 MG/5ML 12:00:00 AM needed (Lucio nt EST [facility]) Omeprazole 40 omeprazole 40 08/10/2019 1.00 ORAL completed take 1 NEXTGEN MG Delayed mg 12:00:00 AM {capsu capsu le ([facility] Release Oral capsule,delayed EST le} b y oral [facility] Capsule release route Medical omeprazole 40 every day C enter) mg before a capsule,delayed meal release Amlodipine 10 amlodipine 10 08/10/2019 1.00 ORAL completed take 1 NEXTGEN MG Oral Tablet mg tablet 12:00:00 AM {tbl} tablet by (Saint amlodipine 10 EST oral Russell s mg tablet route Medical every day Center) Atenolol 100 MG atenolol 100 mg 08/10/2019 1.00 ORAL complet ed take 1 NEXTGEN Oral Tablet tablet 12:00:00 AM {tbl} tab let by ([facility] atenolol 100 mg EST oral Sathya phs tablet route Medical every day Center) apixaban 5 MG Eliquis 5 mg 08/10/2019 1.00 ORAL completed apixaban NEXTGEN Oral Tablet tablet 12:00:00 AM {tbl} 5 M G Oral (Saint [Eliquis] EST Tablet [facility] Eliquis 5 mg [Eliquis] Ut dical tablet Center) Diclofenac Voltaren 1 % 08/10/2019 active diclofena NEXTGEN Sodium 0.01 topical gel 12:00:00 AM c sodium (Saint MG/MG Topical EST 0.01 Russell s Gel [Voltaren] MG/MG Medi nhi Voltaren 1 % Topical Cent er) topical gel Gel [Voltaren ] Chlorthalidone chlorthalidone 10/15/2016 1.00 ORAL completed take 1 NEXTGEN 25 MG Oral 25 mg tablet 12:00:00 AM {tbl} tablet by ([facility] Tablet EDT oral [facility] chlorthalidone route Medi nhi 25 mg tablet every day Ce nter) valsartan 160 valsartan 160 10/15/2016 1.00 ORAL completed take 1 NEXTGEN MG Oral Tablet mg tablet 12:00:00 AM {tbl} tablet by ([facility] valsartan 160 EDT oral Russell s mg tablet route Medical every day Center) Omeprazole 40 omeprazole 40 10/15/2016 1.00 ORAL completed take 1 NEXTGEN MG Delayed mg 12:00:00 AM {capsu capsu le ([facility] Release Oral capsule,delayed EDT le} b y oral [facility] Capsule release route Medical omeprazole 40 every day C enter) mg before a capsule,delayed meal release Metoprolol metoprolol 10/15/2016 1 ORAL completed take 1 NEXTGEN Tartrate 25 MG tartrate 25 mg 12:00:00 AM {tbl} tablet by ( Oral Tablet tablet EDT oral Russell s metoprolol route 2 Medica l tartrate 25 mg times Cent er) tablet every bedtime rivaroxaban 20 Xarelto 20 mg 10/15/2016 1.00 ORAL completed rivaroxab NEXTGEN MG Oral Tablet tablet 12:00:00 AM {tbl} an 20 MG ([facility] [Xarelto] EDT Oral [facility] Xarelto 20 mg Tablet Medi nhi tablet [Xarelto] [place]) atorvastatin 40 atorvastatin 40 10/15/2016 1.00 ORAL complet ed take 1 NEXTGEN MG Oral Tablet mg tablet 12:00:00 AM {table tablet by ([facility] atorvastatin 40 EDT t} oral Sathya phs mg tablet route Medical every day Center) Prednisone 20 prednisone 20 10/15/2016 active take 3 NEXTGEN MG Oral Tablet mg tablet 12:00:00 AM tablet by ([facility] prednisone 20 EDT oral Russell s mg tablet route for Medic al 2 days Center) then 2 tab by mouth for 2 days then 1 tab by mouth for 2days Aspirin 81 MG Aspir-81 81 mg 10/15/2016 active take 1 NEXTGEN Delayed Release tablet,delayed 12:00:00 AM tablet by ( Oral Tablet release EDT oral Mike hs Aspir-81 81 mg route Medi nhi tablet,delayed every day Center) release 24 HR Diltiazem diltiazem ER 10/15/2016 1.00 ORAL completed take 1 NEXTGEN Hydrochloride 180 mg 12:00:00 AM {capsu capsule ([facility] 180 MG Extended capsule,extende EDT le} by oral [facility] Release Oral d release route M edical Capsule every day [place]) diltiazem ER 180 mg capsule,extende d release apixaban 5 MG Eliquis 5 MG active o ne eCW1 Oral Tablet tablet ([facility] [Eliquis] [facility] Eliquis 5 MG [facility]) Amlodipine 10 Amlodipine active 1 t ablet eCW1 MG Oral Tablet Besylate 10 MG ([facility] Amlodipine [facility] Besylate 10 MG Medic al Practice ) pantoprazole 40 Pantoprazole active 1 tablet eCW1 MG Delayed Sodium 40 MG ( [facility] Release Oral [facility] Tablet Medical Pantoprazole Practic e Sodium 40 MG ) Allopurinol 300 Allopurinol 300 suspended one eCW1 MG Oral Tablet MG tablet (Sa int [facility]) 120 ACTUAT Symbicort active 2 puffs eCW1 Budesonide 0.08 80-4.5 MCG/ACT (Saint MG/ACTUAT / [facility] formoterol Medical fumarate 0.0045 Prac latrice MG/ACTUAT ) Metered Dose Inhaler [Symbicort] Symbicort 80-4.5 MCG/ACT Losartan losartan 100 mg 1.00 ORAL completed take 1 NEXTGEN Potassium 100 tablet {tbl} tablet b y (Saint MG Oral Tablet oral Mike hs losartan 100 mg route Med ical tablet every day Center) Insurance Providers Payer name Policy type Policy ID Covered Covered republican's Policy P cheryl / Coverage republican ID relationship to [facility] type schultz MEDICAID [id number] SP [id number] [facility] [facility] [place] [id number] IN [facility] [place] [id number] IN O 01 PENDING EXTERNAL (CREDIT) PENDING EXCHANGE SELF PAY SP INSURANCE Problems, Conditions, and Diagnoses Code Display Name Description Problem Type Effective Data Dates Source(s) I48.0 [id number] Paroxysmal atrial Problem 10/26/2016 eCW1 (S aint fibrillation 12:00:00 AM [facility]) I10 [id number] Essential Problem 10/26/2016 eCW1 ([facility] hypertension 12:00:00 AM [facility]) Z20.828 Contact with and CONTACT W AND Diagnosis 04/03/2020 [facility] (suspected) EXPOSURE TO OTH 12:22:00 PM Medical exposure to other VIRAL COMMUNICABLE EDT Center viral communicable DISEASES diseases M54.5 Low back pain LOW BACK PAIN Diagnosis 04/03/2020 [facility] Nely calix 12:22:00 PM Medical EDT Center I48.91 Unspecified atrial UNSPECIFIED ATRIAL Diagnosis 0 [facility] [place] fibrillation FIBRILLATION 12:22:00 PM Medical EDT Center I10 Essential (primary) ESSENTIAL (PRIMARY) Diagnosis [facility] [place] hypertension HYPERTENSION 12:22:00 PM Medical EDT Center R60.9 Edema, unspecified EDEMA, UNSPECIFIED Diagnosis 0 [facility] [place] 09:59:00 AM Medical EDT Center Z71.82 Exercise counseling EXERCISE COUNSELING Diagnosis [facility] 10:11:00 AM Medical EDT Center Z71.3 Dietary counseling DIETARY COUNSELING Diagnosis 0 [facility] and surveillance AND SURVEILLANCE [facility]:11:[facility] Z68.36 Body mass index BODY MASS INDEX Diagnosis 12/13/2019 Kristen Mccray (BMI) 36.0-36.9, (BMI) 36.0-36.9, 10:11:00 AM [facility] adult ADULT EDT Center Z68.35 Body mass index BODY MASS INDEX Diagnosis 09/18/2019 Kristen Mccray (BMI) 35.0-35.9, (BMI) 35.0-35.9, 11:06:00 AM [facility] adult ADULT EST Center R05 Cough COUGH Diagnosis 09/18/2019 [facility] 11:06:00 AM Medical EST Center R01.1 Cardiac murmur, CARDIAC MURMUR, Diagnosis 08/14/2019 Kristen bambi Wellss unspecified UNSPECIFIED 10:28:00 AM Medical EST Center I48.0 Paroxysmal atrial PAROXYSMAL ATRIAL Diagnosis 08/14/2019 [facility] fibrillation FIBRILLATION 10:28:00 AM Medical EST Center R06.02 Shortness of breath SHORTNESS OF BREATH Diagnosis [facility] 03:40:00 PM Medical EST Center Z79.01 buttermaker continuous churn (current) RETIREMENT (CURRENT) Diagnosis [facility] use of USE OF 03:40:00 PM Medical anticoagulants ANTICOAGULANTS EST Center Diagnosis NEXTGEN ([facility]) Diagnosis NEXTGEN ([facility]) Diagnosis NEXTGEN ([facility]) Diagnosis NEXTGEN ([facility]) Diagnosis NEXTGEN ([facility]) Diagnosis [facility] ([facility]) [facility]) Surgeries/Procedures Procedure Description Date Indications Data Source(s) ROUTINE VENIPUNCTURE 04/03/2020 NEXTGEN ([facility] 12:00:00 AM [facility] EDT - [place]) 04/03/2020 12:00:00 AM EDT OFFICE/OUTPATIENT 04/03/2020 NEXTGEN (S aint VISIT, [facility] [place] 04/03/2020 12:00:00 AM EDT OFFICE/OUTPATIENT 12/20/2019 NEXTGEN ([facility] 12/20/2019 12:00:00 AM EDT OFFICE/OUTPATIENT 12/13/2019 NEXTGEN (S aint VISIT, EST [facility] [place] 12/13/2019 12:00:00 AM EDT ROUTINE VENIPUNCTURE 12/13/2019 NEXTGEN ([facility] 12:00:00 AM [facility] EDT - [place]) 12/13/2019 12:00:00 AM EDT OFFICE/OUTPATIENT 09/18/2019 NEXTGEN (S aint VISIT, EST 12:00:00 AM [facility] - [place]) 09/18/2019 12:00:00 AM EST OFFICE/OUTPATIENT 08/17/2019 NEXTGEN (S aint VISIT, EST 12:00:00 AM [facility] EST - [place]) 08/17/2019 12:00:00 AM EST ECG ROUTINE ECG 08/14/2019 eCW1 ([facility] W/[facility] 12 LDS I&R 12:00:[address] [facility] edical ONLY EST Practice PC) OFFICE/OUTPATIENT 08/10/2019 NEXTGEN (S aint VISIT, EST 12:00:00 AM [facility] EST - Center) 08/10/2019 12:00:00 AM EST OFFICE/OUTPATIENT 10/15/2016 NEXTGEN (S aint VISIT, EST 12:00:00 AM [facility] EDT - [place]) 10/15/2016 12:00:00 AM EDT PROTHROMBIN TIME 10/15/2016 NEXTGEN (Sa int 12:00:00 AM [facility] EDT - Center) 10/15/2016 12:00:00 AM EDT OFFICE/OUTPATIENT 06/11/2015 DENIA (S aint VISIT, EST 12:00:00 AM [facility] EST - Center) 06/11/2015 12:00:00 AM EST No Known procedures No Known procedures e CW1 ([facility]) Results ID Date Data Source Liver 04/03/2020 01:16:00 PM EDT [facility] Profile.[id number] Name Value Range Interpretation Description Data Sup porting Code Source(s) Document(s ) Alanine 7-30 <content [facility] aminotransferase styleCode="Bold"> Mike hs [Enzymatic Alanine Medical activity/volume] Aminotransferase Center in Serum or Plasma (ALT) </content>19 IU/L<content styleCode="Italic s"> (7-30 IU/L)</content> Aspartate 14-36 <content [facility] aminotransferase styleCode="Bold"> Mike hs [Enzymatic Aspartate Medical activity/volume] Aminotransferase Center in Serum or Plasma (AST) </content>26 IU/L<content styleCode="Italic s"> (14-36 IU/L)</content> Alkaline 38-126 <content [facility] phosphatase styleCode="Bold"> [place] [Enzymatic Alkaline Medical activity/volume] Phosphatase (ALP) Cente r in Serum or Plasma </content>56 IU/L<content styleCode="Italic s"> (38-126 IU/L)</content> Bilirubin.total 0.2-1.3 <content [facility] [Mass/volume] in styleCode="Bold"> Mike hs Serum or Plasma Bilirubin Total Medical </content>0.6 Center MG/DL<content styleCode="Italic s"> (0.2-1.3 MG/DL)</content> Albumin 3.5-5.0 <content [facility] [Mass/volume] in styleCode="Bold"> Mike hs Serum or Plasma Albumin Medical </content>4.5 Center G/DL<content styleCode="Italic s"> (3.5-5.0 G/DL)</content> ID Date Data Source LIPID.[id number] 04/03/2020 01:16:00 PM EDT [facility] Name Value Range Interpretation Description Data Sup porting Code Source(s) Document(s ) Triglyceride < 150 Above high normal <content [facility] [Mass/volume] in styleCode="[facility] Serum or Plasma d">Triglycerid [facility] </content>162 MG/DL H<content styleCode="Annmarie lics"> (< 150 MG/DL)</conten t> UNK > 60 Below low normal <content [facility] styleCode="[facility] d">HDL- Medical Cholesterol Center </content>44 MG/DL L<content styleCode="Annmarie lics"> (> 60 MG/DL)</conten t> Cholesterol -<200 <content [facility] [Mass/volume] in styleCode="[facility] Serum or Plasma d">Cholesterol Medical </content>180 Center MG/DL<content styleCode="Annmarie lics"> (-<200 MG/DL)</conten t> UNK < 100 Above high normal <content [facility] styleCode="[facility] d">[facility] </content>104 MG/DL H<content styleCode="Annmarie lics"> (< 100 MG/DL)</conten t> ID Date Data Source Hormones.[id number] 04/03/2020 01:16:00 PM EDT [facility] Name Value Range Interpretation Description Data Sup porting Code Source(s) Document(s ) Thyrotropin 0.465-4. <content [facility] [Units/volume] 68 styleCode="[facility] in Serum or d">Thyroid Medical Plasma by Stimulating Center Detection Hormone limit <= 0.05 </content>1.22 mIU/L MIU/L<content styleCode="Annmarie lics"> (0.465-4.68 MIU/L)</conten t> ID Date Data Source HematologySpeci.[id number] 04/03/2020 01:16:00 PM EDT [facility] 0-0400 Name Value Range Interpretation Description Data Sup porting Code Source(s) Document(s ) Erythrocyte 0-30 <content [facility] sedimentation styleCode="Bold" [place] rate by >Erythrocyte Medical [facility] method Rate (ESR) </content>22 MM/hr<content styleCode="Itali cs"> (0-30 MM/hr)</content> ID Date Data Source HematologyRou.[id number] 04/03/2020 01:16:00 PM [facility] Name Value Range Interpretation Description Data Sup porting Code Source(s) Document(s ) Leukocytes 4.4-11.0 <content [facility] [#/volume] in styleCode="Bold [place] Blood by ">White Blood Medical Automated count Cell Count Center </content>10.35 KCUMM<content styleCode="Ital ics"> (4.4-11.0 KCUMM)</content > Hemoglobin 12.3-16. <content [facility] [Mass/volume] in 0 styleCode="Bold [place] Blood ">Hemoglobin Medical </content>13.3 Center G/DL<content styleCode="Ital ics"> (12.3-16.0 G/DL)</content> Erythrocytes 4.0-5.1 <content [facility] [#/volume] in styleCode="Bold [place] Blood by ">Red Blood Medical Automated count Cell Count Center </content>4.35 MCUMM<content styleCode="Ital ics"> (4.0-5.1 MCUMM)</content > Hematocrit 36.0-46. <content [facility] [Volume 0 styleCode="Bold [place] Fraction] of ">Hematocrit Medical Blood by </content>39.7 Center Automated count %<content styleCode="Ital ics"> (36.0-46.0 %)</content> Erythrocyte mean 26.0-34. <content [facility] corpuscular 0 styleCode="Bold [place] hemoglobin ">Mean Medical [Entitic mass] Corposcular Center by Automated Hemoglobin count </content>30.6 PG<content styleCode="Ital ics"> (26.0-34.0 PG)</content> Erythrocyte mean 80.0-100 <content [facility] corpuscular .0 styleCode="Bold [place] volume [Entitic ">Mean Medical volume] by Corpuscular Center Automated count Volume </content>91.3 FL<content styleCode="Ital ics"> (80.0-100.0 FL)</content> Platelet mean 8.0-11.0 <content [facility] volume [Entitic styleCode="Bold [place] volume] in Blood ">Mean Platelet Medical by Automated Volume Center count </content>10.4 FL<content styleCode="Ital ics"> (8.0-11.0 FL)</content> Erythrocyte mean 32.0-37. <content [facility] corpuscular 0 styleCode="Bold [place] hemoglobin ">Mean Corpus. Medical concentration Hgb Center [Mass/volume] by Concentration Automated count (MCHC) </content>33.5 G/DL<content styleCode="Ital ics"> (32.0-37.0 G/DL)</content> Platelets 130-400 <content [facility] [#/volume] in styleCode="Bold [place] Blood by ">Platelet Medical Automated count Count Center </content>299 KCUMM<content styleCode="Ital ics"> (130-400 KCUMM)</content > UNK 0 <content [facility] styleCode="Bold [place] ">Nucleated Red Medical Blood Cell Center </content>0.0 /100<content styleCode="Ital ics"> (0 /100)</content> Erythrocyte 11.5-14. <content [facility] distribution 5 styleCode="Bold [place] width [Ratio] by ">Red Cell Medical Automated count Distribution Center Width </content>12.3 %<content styleCode="Ital ics"> (11.5-14.5 %)</content> UNK 0.0 <content [facility] styleCode="Bold [place] ">Nucleated Red Medical Blood Cell Center Count </content>0.00 KCUMM<content styleCode="Ital ics"> (0.0 KCUMM)</content > ID Date Data Source GFR(Creatinine).[id number] 04/03/2020 01:16:00 PM EDT Luc[facility] 0-0400 Name Value Range Interpretation Code Description Data Rufina rce(s) Supporting Document(s ) UNK > 60 Below low normal <content [facility] styleCode="Bold"> Medical Cent er EGFR </content>45 GFR L<content styleCode="Italic s"> (> 60 GFR)</content> ID Date Data Source CHMROUTINECCDA.[id number] 04/03/2020 01:16:00 PM EDT [facility] -0400 Name Value Range Interpretation Description Data Sup porting Code Source(s) Document(s ) UNK 2.3-3.5 <content [facility] styleCode="Bold Medical ">Globulin Center </content>3.5 G/DL<content styleCode="Ital ics"> (2.3-3.5 G/DL)</content> UNK >= 1.0 <content [facility] styleCode="Bold Medical ">AG Ratio Center </content>1.3 <content styleCode="Ital ics"> (>= 1.0 )</content> Protein 6.3-8.2 <content [facility] [Mass/volum styleCode="Bold Medical e] in Serum ">Total Protein Center or Plasma </content>8.0 G/DL<content styleCode="Ital ics"> (6.3-8.2 G/DL)</content> ID Date Data Source [facility].[id number] 04/03/2020 01:16:00 PM EDT [facility] Name Value Range Interpretation Description Data Sup porting Code Source(s) Document(s ) Potassium 3.5-5.3 <content [facility] [Moles/volume] in styleCode="Bold"> Sathya phs Serum or Plasma Potassium Medical </content>5.2 Center MEQ/L<content styleCode="Italic s"> (3.5-5.3 MEQ/L)</content> Chloride 98-107 <content [facility] [Moles/volume] in styleCode="Bold"> Sathya phs Serum or Plasma Chloride Medical </content>101 Center MEQ/L<content styleCode="Italic s"> (98-107 MEQ/L)</content> Sodium 137-145 <content [facility] [Moles/volume] in styleCode="Bold"> Sathya phs Serum or Plasma Sodium Medical </content>137 Center MEQ/L<content styleCode="Italic s"> (137-145 MEQ/L)</content> Carbon dioxide, 22-30 <content [facility] total styleCode="Bold"> [place] [Moles/volume] in Carbon Dioxide Medical Serum or Plasma </content>30 Center MEQ/L<content styleCode="Italic s"> (22-30 MEQ/L)</content> Creatinine 0.5-1.3 <content [facility] [Mass/volume] in styleCode="Bold"> Mike hs Serum or Plasma Creatinine Medical </content>1.2 Center MG/DL<content styleCode="Italic s"> (0.5-1.3 MG/DL)</content> Calcium 8.4-10. <content [facility] [Mass/volume] in 2 styleCode="Bold"> Mike hs Serum or Plasma Calcium Medical </content>9.8 Center MG/DL<content styleCode="Italic s"> (8.4-10.2 MG/DL)</content> Glucose 74-106 <content [facility] [Mass/volume] in styleCode="Bold"> Mike hs Serum or Plasma Glucose Medical </content>90 Center MG/DL<content styleCode="Italic s"> (74-106 MG/DL)</content> UNK > 60 Below low <content [facility] normal styleCode="Bold"> [place] EGFR </content>45 Medical GFR L<content Center styleCode="Italic s"> (> 60 GFR)</content> UNK 7-17 Above high <content [facility] normal styleCode="Bold"> [place] BUN </content>40 Medical MG/DL H<content Center styleCode="Italic s"> (7-17 MG/DL)</content> Alanine 7-30 <content [facility] aminotransferase styleCode="Bold"> Mike hs [Enzymatic Alanine Medical activity/volume] Aminotransferase Center in Serum or Plasma (ALT) </content>19 IU/L<content styleCode="Italic s"> (7-30 IU/L)</content> Albumin 3.5-5.0 <content [facility] [Mass/volume] in styleCode="Bold"> Mike hs Serum or Plasma Albumin Medical </content>4.5 Center G/DL<content styleCode="Italic s"> (3.5-5.0 G/DL)</content> Aspartate 14-36 <content [facility] aminotransferase styleCode="Bold"> Mike hs [Enzymatic Aspartate Medical activity/volume] Aminotransferase Center in Serum or Plasma (AST) </content>26 IU/L<content styleCode="Italic s"> (14-36 IU/L)</content> Alkaline 38-126 <content [facility] phosphatase styleCode="Bold"> [place] [Enzymatic Alkaline Medical activity/volume] Phosphatase (ALP) Cente r in Serum or Plasma </content>56 IU/L<content styleCode="Italic s"> (38-126 IU/L)</content> Bilirubin.total 0.2-1.3 <content [facility] [Mass/volume] in styleCode="Bold"> Mike hs Serum or Plasma Bilirubin Total Medical </content>0.6 Center MG/DL<content styleCode="Italic s"> (0.2-1.3 MG/DL)</content> ID Date Data Source Liver 12/13/2019 11:04:00 AM EDT [facility] Profile.[id number] Name Value Range Interpretation Description Data Sup porting Code Source(s) Document(s ) Alkaline 38-126 <content [facility] phosphatase styleCode="Bold"> [place] [Enzymatic Alkaline Medical activity/volume] Phosphatase (ALP) Cente r in Serum or Plasma </content>54 IU/L<content styleCode="Italic s"> (38-126 IU/L)</content> Bilirubin.total 0.2-1.3 <content [facility] [Mass/volume] in styleCode="Bold"> Mike hs Serum or Plasma Bilirubin Total Medical </content>0.3 Center MG/DL<content styleCode="Italic s"> (0.2-1.3 MG/DL)</content> Aspartate 14-36 <content [facility] aminotransferase styleCode="Bold"> Mike hs [Enzymatic Aspartate Medical activity/volume] Aminotransferase Center in Serum or Plasma (AST) </content>27 IU/L<content styleCode="Italic s"> (14-36 IU/L)</content> Alanine 7-30 <content [facility] aminotransferase styleCode="Bold"> Mike hs [Enzymatic Alanine Medical activity/volume] Aminotransferase Center in Serum or Plasma (ALT) </content>16 IU/L<content styleCode="Italic s"> (7-30 IU/L)</content> Albumin 3.5-5.0 <content [facility] [Mass/volume] in styleCode="Bold"> Mike hs Serum or Plasma Albumin Medical </content>4.2 Center G/DL<content styleCode="Italic s"> (3.5-5.0 G/DL)</content> ID Date Data Source LIPID.[id number] 12/13/2019 11:04:00 AM EDT [facility] Name Value Range Interpretation Description Data Sup porting Code Source(s) Document(s ) UNK > 60 Below low normal <content [facility] styleCode="Jona [place] d">HDL- Medical Cholesterol Center </content>46 MG/DL L<content styleCode="Annmarie lics"> (> 60 MG/DL)</conten t> Triglyceride < 150 <content [facility] [Mass/volume] in styleCode="Jona [place] Serum or Plasma d">Triglycerid Medical es Center </content>97 MG/DL<content styleCode="Annmarie lics"> (< 150 MG/DL)</conten t> Cholesterol -<200 <content [facility] [Mass/volume] in styleCode="Jona [place] Serum or Plasma d">Cholesterol Medical </content>183 Center MG/DL<content styleCode="Annmarie lics"> (-<200 MG/DL)</conten t> UNK < 100 Above high normal <content [facility] styleCode="Jona [place] d">LDL-Cholest Medical gentry Center </content>118 MG/DL H<content styleCode="Annmarie lics"> (< 100 MG/DL)</conten t> ID Date Data Source Hormones.[id number] 12/13/2019 11:04:00 AM EDT [facility] Name Value Range Interpretation Description Data Sup porting Code Source(s) Document(s ) Thyrotropin 0.465-4. <content [facility] [Units/volume] 68 styleCode="Jona [place] in Serum or d">Thyroid Medical Plasma by Stimulating Center Detection Hormone limit <= 0.05 </content>1.49 mIU/L MIU/L<content styleCode="Annmarie lics"> (0.465-4.68 MIU/L)</conten t> ID Date Data Source HematologySpeci.[id number] 12/13/2019 11:04:00 AM EDT [facility] 0-0400 Name Value Range Interpretation Description Data Sup porting Code Source(s) Document(s ) Erythrocyte < 40 Above high normal <content [facility] sedimentation styleCode="Bold" [place] rate by >Erythrocyte [facility] method Rate (ESR) </content>58 MM/hr H<content styleCode="Itali cs"> (< 40 MM/hr)</content> ID Date Data Source HematologyRou.[id number] 12/13/2019 11:04:00 AM EDT [facility] 0400 Name Value Range Interpretation Description Data Sup porting Code Source(s) Document(s ) Leukocytes 4.4-11.0 <content [facility] [#/volume] in styleCode="Bold [place] Blood by ">White Blood Medical Automated count Cell Count Center </content>8.52 KCUMM<content styleCode="Ital ics"> (4.4-11.0 KCUMM)</content > Hematocrit 36.0-46. <content [facility] [Volume 0 styleCode="Bold [place] Fraction] of ">Hematocrit Medical Blood by </content>37.2 Center Automated count %<content styleCode="Ital ics"> (36.0-46.0 %)</content> Erythrocyte mean 26.0-34. <content [facility] corpuscular 0 styleCode="Bold [place] hemoglobin ">Mean Medical [Entitic mass] Corposcular Center by Automated Hemoglobin count </content>30.3 PG<content styleCode="Ital ics"> (26.0-34.0 PG)</content> Erythrocytes 4.0-5.1 <content [facility] [#/volume] in styleCode="Bold [place] Blood by ">Red Blood Medical Automated count Cell Count Center </content>4.06 MCUMM<content styleCode="Ital ics"> (4.0-5.1 MCUMM)</content > Erythrocyte mean 80.0-100 <content [facility] corpuscular .0 styleCode="Bold [place] volume [Entitic ">Mean Medical volume] by Corpuscular Center Automated count Volume </content>91.6 FL<content styleCode="Ital ics"> (80.0-100.0 FL)</content> Hemoglobin 12.3-16. <content [facility] [Mass/volume] in 0 styleCode="Bold [place] Blood ">Hemoglobin Medical </content>12.3 Center G/DL<content styleCode="Ital ics"> (12.3-16.0 G/DL)</content> Platelets 130-400 <content Saint [#/volume] in styleCode="Bold [place] Blood by ">Platelet Medical Automated count Count Center </content>358 KCUMM<content styleCode="Ital ics"> (130-400 KCUMM)</content > Erythrocyte 11.5-14. <content [facility] distribution 5 styleCode="Bold [place] width [Ratio] by ">Red Cell Medical Automated count Distribution Center Width </content>12.9 %<content styleCode="Ital ics"> (11.5-14.5 %)</content> Erythrocyte mean 32.0-37. <content [facility] corpuscular 0 styleCode="Bold [place] hemoglobin ">Mean Corpus. Medical concentration Hgb Center [Mass/volume] by Concentration Automated count (MCHC) </content>33.1 G/DL<content styleCode="Ital ics"> (32.0-37.0 G/DL)</content> Platelet mean 8.0-11.0 <content Saint volume [Entitic styleCode="Bold [place] volume] in Blood ">Mean Platelet Medical by Automated Volume Center count </content>10.4 FL<content styleCode="Ital ics"> (8.0-11.0 FL)</content> UNK 0.0 <content [facility] styleCode="Bold [place] ">Nucleated Red Medical Blood Cell Center Count </content>0.00 KCUMM<content styleCode="Ital ics"> (0.0 KCUMM)</content > UNK 0 <content Saint styleCode="Bold [place] ">Nucleated Red Medical Blood Cell Center </content>0.0 /100<content styleCode="Ital ics"> (0 /100)</content> ID Date Data Source GFR(Creatinine).[id number] 12/13/2019 11:04:00 AM EDT [facility] 0-0400 Name Value Range Interpretation Code Description Data Rufina rce(s) Supporting Document(s ) UNK > 60 <content [facility] styleCode="Bold"> Medical Cent er EGFR </content>63 GFR<content styleCode="Italic s"> (> 60 GFR)</content> ID Date Data Source CHMROUTINECCDA.[id number] 12/13/2019 11:04:00 AM EDT [facility] -0400 Name Value Range Interpretation Description Data Sup porting Code Source(s) Document(s ) Protein 6.3-8.2 <content [facility] [Mass/volum styleCode="Bold Medical e] in Serum ">Total Protein Center or Plasma </content>8.0 G/DL<content styleCode="Ital ics"> (6.3-8.2 G/DL)</content> UNK 2.3-3.5 Above high normal <content [place] [facility] styleCode="Bold Medical ">Globulin Center </content>3.8 G/DL H<content styleCode="Ital ics"> (2.3-3.5 G/DL)</content> UNK >= 1.0 <content [facility] styleCode="Bold Medical ">AG Ratio Center </content>1.1 <content styleCode="Ital ics"> (>= 1.0 )</content> UNK 4.2-5.8 Above high normal <content [place] s styleCode="Bold Medical ">Hemoglobin Center A1C </content>6.0 % H<content styleCode="Ital ics"> (4.2-5.8 %)</content> ID Date Data Source [facility].[id number] 12/13/2019 11:04:00 AM EDT [facility] Name Value Range Interpretation Description Data Sup porting Code Source(s) Document(s ) Sodium 137-145 <content [facility] [Moles/volume] in styleCode="Bold"> Sathya phs Serum or Plasma Sodium Medical </content>141 Center MEQ/L<content styleCode="Italic s"> (137-145 MEQ/L)</content> Chloride 98-107 <content [facility] [Moles/volume] in styleCode="Bold"> Sathya phs Serum or Plasma Chloride Medical </content>101 Center MEQ/L<content styleCode="Italic s"> (98-107 MEQ/L)</content> UNK 7-17 Above high <content [facility] normal styleCode="Bold"> [place] BUN </content>33 Medical MG/DL H<content Center styleCode="Italic s"> (7-17 MG/DL)</content> Carbon dioxide, 22-30 <content [facility] total styleCode="Bold"> [place] [Moles/volume] in Carbon Dioxide Medical Serum or Plasma </content>29 Center MEQ/L<content styleCode="Italic s"> (22-30 MEQ/L)</content> Creatinine 0.5-1.3 <content [facility] [Mass/volume] in styleCode="Bold"> Mike hs Serum or Plasma Creatinine Medical </content>0.9 Center MG/DL<content styleCode="Italic s"> (0.5-1.3 MG/DL)</content> Potassium 3.5-5.3 <content [facility] [Moles/volume] in styleCode="Bold"> Sathya phs Serum or Plasma Potassium Medical </content>4.2 Center MEQ/L<content styleCode="Italic s"> (3.5-5.3 MEQ/L)</content> Aspartate 14-36 <content [facility] aminotransferase styleCode="Bold"> Mike hs [Enzymatic Aspartate Medical activity/volume] Aminotransferase Center in Serum or Plasma (AST) </content>27 IU/L<content styleCode="Italic s"> (14-36 IU/L)</content> Alanine 7-30 <content [facility] aminotransferase styleCode="Bold"> Mike hs [Enzymatic Alanine Medical activity/volume] Aminotransferase Center in Serum or Plasma (ALT) </content>16 IU/L<content styleCode="Italic s"> (7-30 IU/L)</content> Calcium 8.4-10. <content [facility] [Mass/volume] in 2 styleCode="Bold"> Mike hs Serum or Plasma Calcium Medical </content>10.0 Center MG/DL<content styleCode="Italic s"> (8.4-10.2 MG/DL)</content> Glucose 74-106 Above high <content Saint [Mass/volume] in normal styleCode="Bold"> Mike hs Serum or Plasma Glucose Medical </content>108 Center MG/DL H<content styleCode="Italic s"> (74-106 MG/DL)</content> UNK > 60 <content Saint styleCode="Bold"> [facility] EGFR </content>63 Medical GFR<content Center styleCode="Italic s"> (> 60 GFR)</content> Alkaline 38-126 <content Saint phosphatase styleCode="Bold"> [facility] [Enzymatic Alkaline Medical activity/volume] Phosphatase (ALP) Cente r in Serum or Plasma </content>54 IU/L<content styleCode="Italic s"> (38-126 IU/L)</content> Albumin 3.5-5.0 <content Saint [Mass/volume] in styleCode="Bold"> Mike hs Serum or Plasma Albumin Medical </content>4.2 Center G/DL<content styleCode="Italic s"> (3.5-5.0 G/DL)</content> Bilirubin.total 0.2-1.3 <content [facility] [Mass/volume] in styleCode="Bold"> Mike hs Serum or Plasma Bilirubin Total Medical </content>0.3 Center MG/DL<content styleCode="Italic s"> (0.2-1.3 MG/DL)</content> Procedure Social History Code Duration Value Status Description Data Source(s ) Caffeine Use 04/03/2020 completed NEXTGEN (Lucio nt Details 12:00:00 AM EDT [facility]) 04/03/2020 Never smoked completed Never smoked NEXTGEN (S aint 12:00:00 AM EDT tobacco tobacco [facility]) Smoking 04/03/2020 Unknown if completed Unknown if ever NEXTGEN ( Saint 12:00:00 AM EDT ever smoked smoked [facility]) Caffeine Use 01/31/2020 completed NEXTGEN (Lucio nt Details 12:00:00 AM EDT [facility]) Alcohol Use completed NEXTGEN ([facility]) Smoking Unknown if completed Unknown if ever [facility] ever smoked smoked [facility] Cent[facility] r Smoking Unknown if completed Unknown if ever eCW1 (Lucio nt ever smoked smoked [facility]) Smoking Unknown if completed Unknown if ever eCW1 ([facility] nt ever smoked smoked [facility]) Vital Signs ID Date Data Source UNK Name Value Range Interpretation Code Description Data Source(s) Oxygen saturation 98 % 98 % NEXTGEN ([facility] in Arterial blood [facility] by Pulse oximetry Center) Body mass index 35.35 kg/m2 Overweight 35.35 kg/m2 NEXTGEN ([facility] (BMI) [Ratio] [facility]) Respiratory rate 16 /min 16 /min NEXTGEN ([facility]) Body temperature 36.56 Eva 36.56 Eva NEXTGEN ([facility]) Heart rate 45 /min 45 /min [facility] ([facility]) Diastolic blood 70 mm[Hg] 70 mm[Hg] NEXTGEN ( [facility] pressure [facility]) Systolic blood 152 mm[Hg] 152 mm[Hg] NEXTGEN (S aint pressure [facility]) Body weight 80.739 kg 80.739 kg NEXTGEN ([facility]) Body height 151.13 cm 151.13 cm NEXTGEN ([facility]) Oxygen saturation 96 % 96 % NEXTGEN ([facility] in Arterial blood [facility] by Pulse oximetry Center) Body mass index 35.55 kg/m2 Overweight 35.55 kg/m2 NEXTGEN ([facility] (BMI) [Ratio] [facility]) Respiratory rate 16 /min 16 /min NEXTGEN ([facility]) Body temperature 37.17 Eva 37.17 Eva NEXTGEN ([facility]) Heart rate 47 /min 47 /min NEXTGEN ([facility]) Diastolic blood 62 mm[Hg] 62 mm[Hg] NEXTGEN ( [facility]) Systolic blood 156 mm[Hg] 156 mm[Hg] NEXTGEN (S [facility]) Body weight 81.193 kg 81.193 [facility] Body height 151.13 cm 151.13 cm [facility]) Oxygen saturation 98 % 98 % NEXTGEN ([facility] in Arterial blood [facility] by Pulse oximetry Center) Body mass index 36.14 kg/m2 Overweight 36.14 kg/m2 NEXTGEN ([facility] (BMI) [Ratio] [facility]) Respiratory rate 17 /min 17 /min NEXTGEN ([facility]) Body temperature 37.50 Eva 37.50 Eva [facility]) Heart rate 56 /min 56 /min NEXTGEN ([facility]) Diastolic blood 54 mm[Hg] 54 mm[Hg] NEXTGEN ( [facility] pressure [facility]) Systolic blood 125 mm[Hg] 125 mm[Hg] NEXTGEN (S nt [facility]) Body weight 82.554 kg 82.554 kg [facility]) Body height 151.13 cm 151.13 cm [facility]) Oxygen saturation 95 % 95 % NEXTGEN ([facility] in Arterial [facility] by Pulse oximetry Center) Body mass index 35.95 kg/m2 Overweight 35.95 kg/m2 NEXTGEN ([facility] (BMI) [Ratio] [facility]) Respiratory rate 18 /min 18 /min [facility] ([facility]) Body temperature 37.06 Eva 37.06 Eva NEXTGEN ([facility]) Heart rate 53 /min 53 /min [facility]GEN ([facility]) Diastolic blood 56 mm[Hg] 56 mm[Hg] NEXTGEN ( [facility]) Systolic blood 135 mm[Hg] 135 mm[Hg] NEXTGEN (S aint [facility]) Body weight 82.100 kg 82.100 kg [facility] Body height 151.13 cm 151.13 cm NEXTGEN ([facility]) Diastolic blood 84 mm[Hg] 84 mm[Hg] [facility] ( [facility]) Systolic blood 136 mm[Hg] 136 mm[Hg] [facility] (S aint [facility]) Oxygen saturation 96 % 96 % [facility] ([facility] in Arterial blood [facility] by Pulse oximetry Center) Body mass index 36.14 kg/m2 Overweight 36.14 kg/m2 [facility] ([facility] (BMI) [Ratio] [facility]) Respiratory rate 18 /min 18 /min [facility] ([facility]) Body temperature 36.56 Eva 36.56 Eva [facility] ([facility]) Heart rate 55 /min 55 /min [facility] ([facility]) Diastolic blood 71 mm[Hg] 71 mm[Hg] [facility] ( [facility]) Systolic blood 157 mm[Hg] 157 mm[Hg] [facility] (S aint pressure [facility]) Body weight 82.554 kg 82.554 kg [facility] ([facility]) Body height 151.13 cm 151.13 cm [facility] ([facility]) Diastolic blood 53 mm[Hg] 53 mm[Hg] eCW1 (Lucio nt pressure [facility]) Systolic blood 123 mm[Hg] 123 mm[Hg] eCW1 ([facility] t pressure [facility]) Deprecated Oxygen 96 % 96 % eCW1 (S aint saturation in [facility] ical Capillary blood by [facility]) Oximetry Body temperature 98.3 [degF] 98.3 [degF] eCW1 ( [facility]) Respiratory rate 20 /min 20 /min eCW1 ([facility]) Heart rate 53 /min 53 /min eCW1 ([facility]) Body mass index 31.17 kg/m2 31.17 kg/m2 eCW1 (S aint (BMI) [Ratio] [facility]) Body weight 176 [lb_av] 176 [lb_av] eCW1 ([facility]) Body height 63 [in_us] 63 [in_us] eCW1 ([facility]) Diastolic blood 82 mm[Hg] 82 mm[Hg] NEXTGEN ( [facility]) Systolic blood 150 mm[Hg] 150 mm[Hg] NEXTGEN (S aint pressure [facility]) Oxygen saturation 97 % 97 % NEXTGEN ([facility] Arterial [facility] by Pulse oximetry Center) Respiratory rate 18 /min 18 /min NEXTGEN ([facility]) Body temperature 36.33 Eva 36.33 Eva NEXTGEN ([facility]) Heart rate 52 /min 52 /min NEXTGEN ([facility]) Diastolic blood 63 mm[Hg] 63 mm[Hg] NEXTGEN ( [facility]) Systolic blood 165 mm[Hg] 165 mm[Hg] NEXTGEN ( aint [facility]) Body height 151.13 cm 151.13 cm NEXTGEN ([facility]) Patient Treatment Plan of Care Planned Activity Planned Date Details Description Data Source (s) Atenolol 100 MG / 04/26/2020 12:00:00 NEX TGEN ([facility] Chlorthalidone 25 MG Oral AM [facility]) apixaban 5 MG Oral Tablet 04/26/2020 12:00:00 NEXTGEN ([facility] [Eliquis] [facility]) Losartan Potassium 100 MG 04/26/2020 12:00:00 NEXTGEN ([facility] Oral Tablet [facility]) Atenolol 100 MG / 04/03/2020 12:00:00 NEX TGEN ([facility] Chlorthalidone 25 MG Oral AM [facility]) atorvastatin 40 MG Oral 04/03/2020 12:00[facility]) apixaban 5 MG Oral Tablet 04/03/2020 12:00:[facility] [Eliquis] [facility]) Losartan Potassium 100 MG 04/03/2020 12:00:00 NEXTGEN ([facility] Oral Tablet [facility]) apixaban 5 MG Oral Tablet 01/31/2020 12:00:00 NEXTGEN ([facility] [Eliquis] [facility]) Acetaminophen 500 MG Oral 12/13/2019 12:00:00 NEXTGEN ([facility] Capsule [Mapap] [facility]) Furosemide 20 MG Oral 12/13/2019 12:00:00 [facility] ([facility]) Atenolol 100 MG / 12/13/2019 12:00:00 NEX TGEN ([facility] Chlorthalidone 25 MG Oral [facility]) apixaban 5 MG Oral Tablet 12/04/2019 12:00:00 [facility] ([facility] [Eliquis] [facility]) Amlodipine 10 MG Oral 12/04/2019 12:00:00 [facility] ([facility]) Atenolol 100 MG Oral 12/04/2019 12:00:00 [facility] ([facility]) apixaban 5 MG Oral Tablet 11/29/2019 12:00:00 [facility] [Eliquis] [facility]) Chlorthalidone 25 MG Oral 11/08/2019 12:00:00 [facility] ([facility] Tablet [facility]) Omeprazole 40 MG Delayed 11/07/2019 12:00:00 [facility] ([facility] Release Oral Capsule [facility]) Atenolol 100 MG Oral 11/07/2019 12:00:00 [facility] ([facility]) Chlorthalidone 25 MG Oral 11/07/2019 12:00:00 [facility] ([facility]) rivaroxaban 20 MG Oral 10/13/2019 12:00:00 eCW1 ([facility] Tablet [Xarelto] AM EDT [facility]) Guaifenesin 20 MG/ML Oral 09/18/2019 12:00:00 NEXTGEN ([facility] Solution [facility]) Losartan Potassium 100 MG 09/06/2019 12:00:00 NEXTGEN ([facility] Oral Tablet [facility]) Amlodipine 10 MG Oral 09/06/2019 12:00:00 NEXTGEN ([facility] Tablet [facility]) Chlorthalidone 25 MG Oral 09/06/2019 12:00:00 NEXTGEN ([facility] Tablet [facility]) Atenolol 100 MG Oral 09/06/2019 12:00:00 NEXTGEN ([facility] Tablet [facility]) Atenolol 100 MG Oral 09/06/2019 12:00:00 NEXTGEN ([facility] Tablet [facility]) Losartan Potassium 100 MG 09/06/2019 12:00:00 NEXTGEN ([facility] Oral Tablet [facility]) Amlodipine 10 MG Oral 09/06/2019 12:00:00 NEXTGEN ([facility]) Acetaminophen 500 MG Oral 08/17/2019 12:00:00 NEXTGEN ([facility] Capsule [Mapap] [facility]) Guaifenesin 100 MG/5ML 08/14/2019 12:00:00 eCW1 ([facility]) Atenolol 100 MG / 08/14/2019 12:00:00 eCW 1 ([facility] Chlorthalidone 25 MG Oral AM [facility]) Tablet Diclofenac Sodium 0.01 08/10/2019 12:00:00 NEXTGEN ([facility] MG/MG Topical Gel [facility] [Voltaren] [place]) apixaban 5 MG Oral Tablet 08/10/2019 12:00:00 NEXTGEN ([facility] [Eliquis] [facility]) Omeprazole 40 MG Delayed 08/10/2019 12:00:00 NEXTGEN ([facility] Release Oral Capsule [facility]) Amlodipine 10 MG Oral 08/10/2019 12:00:00 NEXTGEN ([facility]) Atenolol 100 MG Oral 08/10/2019 12:00:00 [facility] ([facility]) Prednisone 20 MG Oral 10/15/2016 12:00:00 NEXTGEN (Saint Tablet [facility]) Aspirin 81 MG Delayed 10/15/2016 12:00:00 NEXTGEN (Saint Release Oral Tablet [facility]) atorvastatin 40 MG Oral 10/15/2016 12:00:00 NEXTGEN ([facility] Tablet [facility]) Omeprazole 40 MG Delayed 10/15/2016 12:00:00 NEXTGEN ([facility] Release Oral Capsule [facility]) Chlorthalidone 25 MG Oral 10/15/2016 12:00:00 NEXTGEN ([facility] Tablet [facility]) valsartan 160 MG Oral 10/15/2016 12:00:00 NEXTGEN ([facility] Tablet [facility]) Metoprolol Tartrate 25 MG 10/15/2016 12:00:00 NEXTGEN (Saint Oral Tablet [facility]) 24 HR Diltiazem 10/15/2016 12:00:00 NEXTG EN ([facility] Hydrochloride 180 MG [facility] Extended Release [facility] ) Capsule rivaroxaban 20 MG Oral 10/15/2016 12:00:00 NEXTGEN (Saint Tablet [Xarelto] [facility]) Losartan Potassium 100 MG NE XTGEN ([facility] Oral [facility])
--- NOTE | 2020-05-07 21:57 | PDOC ---
History of Present Illness - General Chief Complaint: Pain, Acute Stated Complaint: LEFT LEG PAIN Time Seen by Provider: 05/07/20 21:56 Past History - Medical History Allergies/Adverse Reactions: Allergies Allergy/AdvReac Type Severity Reaction Status Date / Time No Known Allergies Allergy Verified 05/07/20 21:13 Home Medications: Ambulatory Orders Atorvastatin Ca [Lipitor] 40 mg PO HS #30 tablet 10/10/16 Allopurinol 300 mg PO DAILY 07/31/19 Atenolol/Chlorthalidone [Atenolol-Chlorthalidone 100-25] 1 tab PO DAILY 07/31/19 Albuterol Sulfate Inhaler - [Ventolin Hfa Inhaler -] 1 puff IH Q4H #2 inhaler 08/03/19 Apixaban [Eliquis -] 5 mg PO BID #60 tablet 08/03/19 Atenolol [Tenormin -] 100 mg PO DAILY #30 tablet 08/03/19 Budesonide/Formeterol Fumarate [SYMBICORT 80/4.5mcg -] 2 puff IH BID #2 inhaler 08/03/19 Chlorthalidone [Hygroton -] 25 mg PO DAILY #30 tablet 08/03/19 Pantoprazole Sodium [Protonix -] 40 mg PO DAILY #30 tablet.ec 08/03/19 predniSONE [Deltasone -] 10 mg PO ASDIR #30 tablet 08/03/19 COPD: No HTN: Yes - Surgical History Abdominal Surgery: Yes Orthopedic Surgery: Yes (ARM) - Psycho-Social/Smoking History Smoking History: Never smoked Have you smoked in the past 12 months: No Information on smoking cessation initiated: No - Substance Abuse Hx (Audit-C & DAST Scrn) How often the patient has a drink containing alcohol: Never Score: In Men: 4 or > Positive; In Women: 3 or > Positive: 0 Screen Result (Pos requires Nsg. Audit-10AR): Negative In the last yr the pt used illegal drug/Rx for NonMed reason: No Score: Yes response is considered Positive: 0 Screen Result (Positive result requires Nsg. DAST-10): Negative *Physical Exam - Vital Signs Last Vital Signs Temp Pulse Resp BP Pulse Ox 97.4 F L 62 18 168/57 L 98 05/07/20 21:08 05/07/20 21:08 05/07/20 21:08 05/07/20 21:08 05/07/20 21:08 Medical Decision Making - Medical Decision Making 05/07/20 22:11 84yo F hx Afib on eliquis, HTN, HLD, osteoporosis, obesity, and arm surgery presents from home (brought by daughter) c/o L posterior knee pain since this PM. Pt stood from chair and felt her L knee twist. Pt took tylenol 1-2hrs [employer] but pain persisted and pt was able to walk. Denies fall or hits. Denies numbness, tingling, weakness, other injuries, hx DVT, other sx. No trauma or exam findings concerning for fracture or dislocation. -US eval cyst -Pain management: ibuprofen 05/07/20 23:09 Benson's cyst Pt ambulates without difficulty Pt wants to leave Discharge - Discharge Information Problems reviewed: Yes Clinical Impression/Diagnosis: Benson's cyst of knee Condition: Improved Disposition: HOME - Admission No - Follow up/Referral Referrals: Shana Archer NP [Primary Care Provider] - Barry Coronel DO [Staff Physician] - - Patient Discharge Instructions Patient Printed Discharge Instructions: DI for Benson Cyst Additional Instructions: You have been seen in the Emergency Department for your knee pain. Your imaging shows a Benson's cyst. You will need follow-up by an Orthopedist. We have given you a referral. Call his office in the morning to set up an appointment for this week. If you experience pain, you can take Tylenol or Ibuprofen as directed on the medication bottle, but do not exceed 3g of Ibuprofen or 4g of Tylenol a day. Follow-up with your primary care doctor within 1 week. Return to the Emergency Department immediately if you experience inability to walk, worsening pain, or any other new or worsening symptom. Lo blake visto en el Departamento de Emergencias por menchaca dolor de rodilla. Kelli imgenes muestran un quiste de Benson. Necesitar un seguimiento por parte de un ortopedista. Le hemos dado martin referencia. Llame a menchaca oficina por la maana para programar martin nancy para esta semana. Si siente dolor, puede last Tylenol o ibuprofeno reynold se indica en el frasco del medicamento, sandra no exceda los 3 g de ibuprofeno o 4 g de Tylenol al da. Minerva un seguimiento con menchaca mdico de atencin primaria dentro de 1 semana. Regrese al Departamento de Emergencias de inmediato si experimenta incapacidad para caminar, empeoramiento del dolor o cualquier otro sntoma nuevo o que empeora. Print Language: PANAMANIAN - Post Discharge Activity
[2020-05-07] MEDS ORDERED: IBUPROFEN 600 MG TABLET (FP) PO ONE ×2 (22:15→23:19)
--- NOTE | 2020-05-07 22:20 | PDOC ---
Documentation entered by Feliciano Hutton SCRIBE, acting as scribe for Xiomara Hameed MD. Xiomara Hameed MD: This documentation has been prepared by the scribe, Feliciano Prado SCRIBE, under my direction and personally reviewed by me in its entirety. I confirm that the documentation accurately reflects all work, treatment, procedures, and medical decision making performed by me. Attending Attestation - Resident Resident Name: Precious Parks - ED Attending Attestation I have performed the following: I have examined & evaluated the patient, The case was reviewed & discussed with the resident, I agree w/resident's findings & plan, Exceptions are as noted - HPI HPI: 05/07/20 22:09 The patient is an 84 year old female with a significant past medical history of paroxysmal a-fib, arthritis, osteoporosis, and HTN who presents to the emergency department, [facility], for evaluation of knee pain that began when she was standing up from a chair today. The patient speaks Occitan, so history was obtained from her daughter. Per the patients daughter, the patient reports her knee twisted when standing and she has been unable to walk since then. The patient reports she took Tylenol when EMS arrived two hours ago. The patient denies chest/abdominal/back pain, cough, and shortness of breath. Denies fever, chills, nausea, vomiting, and/or any GI symptoms. Denies any symptoms. Denies any other symptoms. Allergies: NKA Social Hx: None reported Surgical Hx: left arm surgery, hysterectomy PCP: Dr. Murray (Joyce James) - Physicial Exam PE: 05/07/20 22:01 GENERAL: Occitan speaking 84 yo female who stood up tonight and "twisted " her left knee and has had pain since then HEENT: Normocephalic, atraumatic. PERRLA, EOMI. NECK: Supple. CARDIOVASCULAR: Irregular,irregular rhythm PULMONARY: No evidence of respiratory distress. Lungs clear to auscultation bilaterally. No wheezing, rales or rhonchi. ABDOMINAL: Soft. Non-tender. Non-distended. No rebound or guarding. No organomegaly. Normoactive bowel sounds. MUSCULOSKELETAL: patient has pain behind her left knee EXTREMITIES: No cyanosis. No clubbing. No edema. No calf tenderness. SKIN: Warm and dry. Normal capillary refill. No rashes. No jaundice. NEUROLOGICAL: Alert, awake, appropriate. Cranial nerves 2-12 intact. No deficits to light touch and temperature in face, upper extremities and lower extremities. No motor deficits in the in face, upper extremities and lower extremities. Normoreflexic in the upper and lower extremities. Normal speech. Toes are down-going bilaterally. Gait is normal without ataxia. PSYCHIATRIC: Cooperative. Good eye contact. Appropriate mood and affect. 05/07/20 22:16 - Medical Decision Making 05/07/20 23:09 this pt can ambulate her duplex doppler was negative for DVT but there is a 2 cm x 2,2 cm Benson's cyst pt given pain medication and she'll be discharged home Discharge - Discharge Information Problems reviewed: Yes Clinical Impression/Diagnosis: Benson's cyst of knee Condition: Improved Disposition: HOME - Follow up/Referral Referrals: Barry Coronel DO [Staff Physician] - Shana Archer NP [Primary Care Provider] - - Patient Discharge Instructions Patient Printed Discharge Instructions: [facility] for Benson Cyst Additional Instructions: You have been seen in the Emergency Department for your knee pain. Your imaging shows a Benson's cyst. You will need follow-up by an Orthopedist. We have given you a referral. Call his office in the morning to set up an appointment for this week. If you experience pain, you can take Tylenol or Ibuprofen as directed on the medication bottle, but do not exceed 3g of Ibuprofen or 4g of Tylenol a day. Follow-up with your primary care doctor within 1 week. Return to the Emergency Department immediately if you experience inability to walk, worsening pain, or any other new or worsening symptom. Lo blake visto en el Departamento de Emergencias por menchaca dolor de rodilla. Kelli imgenes muestran un quiste de Benson. Necesitar un seguimiento por parte de un ortopedista. Le hemos dado martin referencia. Llame a menchaca oficina por la maana para programar martin nancy para esta semana. Si siente dolor, puede last Tylenol o ibuprofeno reynold se indica en el frasco del medicamento, sandra no exceda los 3 g de ibuprofeno o 4 g de Tylenol al da. Minerva un seguimiento con menchaca mdico de atencin primaria dentro de 1 semana. Regrese al Departamento de Emergencias de inmediato si experimenta incapacidad para caminar, empeoramiento del dolor o cualquier otro sntoma nuevo o que empeora. Print Language: CROATIAN - Post Discharge Activity
== END 2020-05-07 23:35 | disposition home or self-care (01) ==
LOC: JER 20:54
DX: M71.22 Synovial cyst of popliteal space [Baker], left knee (principal)
CPT/HCPCS: 93971-TC; 99284-25

== ENCOUNTER 2023-05-03 20:53 | Inpatient (IN) | payer OTHER ==
[2023-05-03] MEDS ORDERED: ALBUTEROL SO4 2.5/IPRATROPIUM 0.5 INH SOL 3 ML VIAL.NEB. NEB ONE (21:15)
[2023-05-03 21:16] VITALS: BMI 35.4
[2023-05-03 21:37] LABS: BASO % 0.7 % (0-2.0); EOS % 1.3 % (0-4.5); HEMATOCRIT 40.5 % (32.4-45.2); MCH 31.4 pg (25.7-33.7); MCHC 34.5 g/dl (32.0-36.0); MEAN CELL VOLUME 90.9 fl (80-96); MEAN PLT VOLUME 7.8 fl (7.5-11.1); MONO % 10.6 % (3.8-10.2); NEUT % 62.4 % (42.8-82.8); PLATELET COUNT 279 10^3/uL (134-434); RBC 4.46 M/mm3 (3.60-5.2); RDW 13.1 % (11.6-15.6); WHITE BLOOD COUNT 11.1 K/mm3 (4.0-10.0)
[2023-05-03] MEDS ORDERED: methylPREDNISolone NA SUCC 125 MG/2 ML VIAL IVPUSH ONE (21:38)
[2023-05-03] MEDS ORDERED: MAGNESIUM SULF 50% (8.12 MEQ/2 ML-1 GM VIAL) IVPB ONE (21:38)
[2023-05-03 21:43] LABS: VENOUS BASE EXCESS 0.3 mmol/L (-2-2); VENOUS O2 SATURATION 51.1 % (70-80); VENOUS PCO2 59.2 mmHg (38-52); VENOUS PH 7.296 (7.310-7.410)
[2023-05-03 21:44] LABS: INR 1.32 (0.83-1.09); PROTHROMBIN TIME (PATIENT) 15.3 SEC (9.7-13.0)
[2023-05-03 21:47] LABS: ACTIVATED PTT 34.3 SECONDS (25.2-36.5)
[2023-05-03] MEDS: ALBUTEROL SO4 2.5/IPRATROPIUM 0.5 INH SOL 3 ML VIAL.NEB. NEB SCH (21:47)
[2023-05-03] MEDS ORDERED: methylPREDNISolone NA SUCC 125 MG/2 ML VIAL ONE (21:49)
[2023-05-03] MEDS ORDERED: MAGNESIUM SULFATE IN WATER 2 GM/50 ML IVPB IVPB ONE (21:49)
[2023-05-03 21:59] LABS: CALCIUM 8.7 mg/dL (8.5-10.1)
[2023-05-03 22:00] LABS: ALBUMIN 3.9 g/dl (3.4-5.0); BLOOD UREA NITROGEN 28.1 mg/dL (7-18)
[2023-05-03 22:03] LABS: CREATININE 1.1 mg/dL (0.55-1.3)
[2023-05-03 22:05] LABS: BILIRUBIN,TOTAL 0.6 mg/dL (0.2-1); TOT PROT 8.7 g/dl (6.4-8.2)
[2023-05-03] MEDS ORDERED: AZITHROMYCIN IVPB 500 MG in DEXTROSE 5%-WATER - 250 ML IVPB ONE (22:32)
[2023-05-03] MEDS ORDERED: FUROSEMIDE 40 MG/4 ML INJECTABLE VIAL IVPUSH ONE (22:32)
[2023-05-03] MEDS ORDERED: CEFTRIAXONE 1 GM/50 ML BAG ONE (22:54)
[2023-05-03] MEDS ORDERED: FUROSEMIDE 40 MG/4 ML INJECTABLE VIAL ONE (22:54)
[2023-05-03] MEDS ORDERED: AZITHROMYCIN IVPB 500 MG/250 ML BAG IVPB ONE (23:11)
[2023-05-03] MEDS ORDERED: DOCUSATE SODIUM 100 MG CAPSULE (FP) PO PRN (23:48)
[2023-05-03] MEDS ORDERED: ACETAMINOPHEN 1000 MG/100 ML BAG IVPB PRN (23:53)
[2023-05-04] MEDS ORDERED: ALBUTEROL SO4 2.5/IPRATROPIUM 0.5 INH SOL 3 ML VIAL.NEB. NEB PRN (01:58)
[2023-05-04] MEDS ORDERED: methylPREDNISolone NA SUCC 125 MG/2 ML VIAL ONE (04:10)
[2023-05-04 08:26] LABS: BASO % 0.3 % (0-2.0); HEMATOCRIT 39.3 % (32.4-45.2); LYMPH % 21.5 % (8-40); MCH 31.1 pg (25.7-33.7); MCHC 33.1 g/dl (32.0-36.0); MEAN CELL VOLUME 94.1 fl (80-96); MEAN PLT VOLUME 8.1 fl (7.5-11.1); MONO % 2.9 % (3.8-10.2); NEUT % 75.3 % (42.8-82.8); PLATELET COUNT 220 10^3/uL (134-434); RBC 4.18 M/mm3 (3.60-5.2); RDW 13.1 % (11.6-15.6); WHITE BLOOD COUNT 8.3 K/mm3 (4.0-10.0)
[2023-05-04 08:54] LABS: POTASSIUM 4.6 mmol/L (3.5-5.1)
[2023-05-04 08:56] LABS: BLOOD UREA NITROGEN 29.9 mg/dL (7-18); CALCIUM 8.2 mg/dL (8.5-10.1); MAGNESIUM 1.7 mg/dL (1.8-2.4)
[2023-05-04 09:00] LABS: CREATININE 1.3 mg/dL (0.55-1.3); PHOSPHOROUS 4.6 mg/dL (2.5-4.9)
[2023-05-04] MEDS ORDERED: ATORVASTATIN CA 20 MG TABLET (FP) ONE (09:05)
[2023-05-04] MEDS ORDERED: ATORVASTATIN CA 80 MG TABLET (FP) ONE (09:06)
[2023-05-04] MEDS: PANTOPRAZOLE 40 MG TABLET PO SCH (09:10)
[2023-05-04] MEDS: ATENOLOL 50 MG TABLET (FP) PO SCH (09:10)
[2023-05-04] MEDS: ATORVASTATIN CA 10 MG TABLET (FP) PO SCH (09:10)
[2023-05-04] MEDS: LOSARTAN POTASSIUM 50 MG TABLET PO SCH (09:10)
[2023-05-04] MEDS: ALBUTEROL SO4 HFA INHALER IH SCH ×3 (09:10→21:05)
[2023-05-04] MEDS: APIXABAN 5 MG TABLET PO SCH ×2 (09:10→22:32)
[2023-05-04] MEDS ORDERED: CHLORTHALIDONE 25 MG TABLET PO SCH (10:00)
[2023-05-04] MEDS: FUROSEMIDE 40 MG/4 ML INJECTABLE VIAL IVPUSH SCH (13:59)
[2023-05-04] MEDS ORDERED: ALBUTEROL SO4 2.5/IPRATROPIUM 0.5 INH SOL 3 ML VIAL.NEB. NEB ONE (20:09)
[2023-05-04] MEDS: ALBUTEROL SO4 2.5/IPRATROPIUM 0.5 INH SOL 3 ML VIAL.NEB. NEB SCH ×2 (20:14→21:01)
[2023-05-04] MEDS ORDERED: APIXABAN 5 MG TABLET ONE (22:22)
[2023-05-04] MEDS ORDERED: CEFTRIAXONE 1 GM/50 ML BAG ONE (22:23)
[2023-05-04] MEDS: CEFTRIAXONE 1 GM in DEXTROSE 5%-WATER - 50 ML IVPB SCH (22:32)
[2023-05-04] MEDS ORDERED: AZITHROMYCIN IVPB 500 MG/250 ML BAG IVPB ONE (22:48)
[2023-05-04] MEDS: AZITHROMYCIN IVPB 500 MG/250 ML BAG IVPB SCH (22:53)
[2023-05-05] MEDS ORDERED: ACETAMINOPHEN 325 MG TABLET (FP) PO PRN
[2023-05-05] MEDS: ALBUTEROL SO4 HFA INHALER IH SCH ×4 (02:52→20:13)
[2023-05-05] MEDS ORDERED: methylPREDNISolone NA SUCC 40 MG/1 ML VIAL ONE (04:08)
[2023-05-05] MEDS: methylPREDNISolone NA SUCC 40 MG/1 ML VIAL IVPUSH SCH ×3 (04:15→17:28)
[2023-05-05] MEDS: ALBUTEROL SO4 2.5/IPRATROPIUM 0.5 INH SOL 3 ML VIAL.NEB. NEB SCH ×4 (08:22→20:05)
[2023-05-05] MEDS: FUROSEMIDE 40 MG/4 ML INJECTABLE VIAL IVPUSH SCH (12:39)
[2023-05-05] MEDS: PANTOPRAZOLE 40 MG TABLET PO SCH (12:40)
[2023-05-05] MEDS: APIXABAN 5 MG TABLET PO SCH ×2 (12:40→22:14)
[2023-05-05] MEDS: amLODIPine BESYLATE 5 MG TABLET (FP) PO SCH (12:40)
[2023-05-05] MEDS: LOSARTAN POTASSIUM 50 MG TABLET PO SCH (12:40)
[2023-05-05] MEDS ORDERED: ATENOLOL 50 MG TABLET (FP) PO SCH (13:00)
[2023-05-05] MEDS: ATENOLOL 50 MG TABLET (FP) PO SCH (15:04)
[2023-05-05] MEDS ORDERED: MAGNESIUM 1GM/D5W 100ML - 100 ML IVPB IVPB ONE (15:46)
[2023-05-05] MEDS: ATORVASTATIN CA 10 MG TABLET (FP) PO SCH (17:27)
[2023-05-05] MEDS: CEFTRIAXONE 1 GM in DEXTROSE 5%-WATER - 50 ML IVPB SCH (22:10)
[2023-05-05] MEDS: AZITHROMYCIN IVPB 500 MG/250 ML BAG IVPB SCH (22:13)
[2023-05-06] MEDS: ALBUTEROL SO4 HFA INHALER IH SCH ×4 (02:16→22:36)
[2023-05-06] MEDS: methylPREDNISolone NA SUCC 40 MG/1 ML VIAL IVPUSH SCH ×2 (02:16→10:45)
[2023-05-06] MEDS ORDERED: FUROSEMIDE 40 MG/4 ML INJECTABLE VIAL IVPUSH SCH (06:00)
[2023-05-06] MEDS: ALBUTEROL SO4 2.5/IPRATROPIUM 0.5 INH SOL 3 ML VIAL.NEB. NEB SCH ×4 (07:45→20:05)
[2023-05-06 10:01] LABS: POTASSIUM 3.8 mmol/L (3.5-5.1)
[2023-05-06 10:10] LABS: CALCIUM 8.3 mg/dL (8.5-10.1)
[2023-05-06 10:11] LABS: MAGNESIUM 2.5 mg/dL (1.8-2.4)
[2023-05-06 10:14] LABS: CREATININE 1.5 mg/dL (0.55-1.3)
[2023-05-06] MEDS: ATENOLOL 50 MG TABLET (FP) PO SCH (10:46)
[2023-05-06] MEDS: LOSARTAN POTASSIUM 50 MG TABLET PO SCH (10:46)
[2023-05-06] MEDS: amLODIPine BESYLATE 5 MG TABLET (FP) PO SCH (10:46)
[2023-05-06] MEDS: PANTOPRAZOLE 40 MG TABLET PO SCH (10:46)
[2023-05-06] MEDS: ATORVASTATIN CA 10 MG TABLET (FP) PO SCH (10:46)
[2023-05-06] MEDS: APIXABAN 5 MG TABLET PO SCH ×2 (10:46→22:35)
[2023-05-06] MEDS: CEFTRIAXONE 1 GM in DEXTROSE 5%-WATER - 50 ML IVPB SCH (22:35)
[2023-05-06] MEDS: AZITHROMYCIN IVPB 500 MG/250 ML BAG IVPB SCH (23:34)
[2023-05-07] MEDS: ALBUTEROL SO4 HFA INHALER IH SCH ×4 (05:45→21:15)
[2023-05-07] MEDS: ALBUTEROL SO4 2.5/IPRATROPIUM 0.5 INH SOL 3 ML VIAL.NEB. NEB SCH ×4 (08:12→19:00)
[2023-05-07] MEDS: FUROSEMIDE 40 MG TABLET (FP) PO SCH (09:07)
[2023-05-07] MEDS: LOSARTAN POTASSIUM 50 MG TABLET PO SCH (09:07)
[2023-05-07] MEDS: ATORVASTATIN CA 10 MG TABLET (FP) PO SCH (09:07)
[2023-05-07] MEDS: amLODIPine BESYLATE 5 MG TABLET (FP) PO SCH (09:07)
[2023-05-07] MEDS: ATENOLOL 50 MG TABLET (FP) PO SCH (09:07)
[2023-05-07] MEDS: APIXABAN 5 MG TABLET PO SCH ×2 (09:07→21:14)
[2023-05-07] MEDS: PANTOPRAZOLE 40 MG TABLET PO SCH (09:07)
[2023-05-07 09:12] LABS: POTASSIUM 3.5 mmol/L (3.5-5.1)
[2023-05-07 09:18] LABS: ALBUMIN 3.6 g/dl (3.4-5.0); BLOOD UREA NITROGEN 53.1 mg/dL (7-18); CALCIUM 8.5 mg/dL (8.5-10.1)
[2023-05-07 09:21] LABS: CREATININE 1.6 mg/dL (0.55-1.3)
[2023-05-07 09:23] LABS: BILIRUBIN,TOTAL 0.4 mg/dL (0.2-1)
[2023-05-07 09:24] LABS: TOT PROT 8.4 g/dl (6.4-8.2)
[2023-05-07] MEDS ORDERED: methylPREDNISolone NA SUCC 40 MG/1 ML VIAL IVPUSH SCH (10:00)
[2023-05-07] MEDS: predniSONE 20 MG TABLET (UD) PO SCH ×2 (11:11→21:14)
[2023-05-07] MEDS: CEFTRIAXONE 1 GM in DEXTROSE 5%-WATER - 50 ML IVPB SCH (21:14)
[2023-05-07] MEDS: AZITHROMYCIN IVPB 500 MG/250 ML BAG IVPB SCH (21:39)
[2023-05-08] MEDS: ALBUTEROL SO4 HFA INHALER IH SCH (04:09)
[2023-05-08] MEDS: ALBUTEROL SO4 2.5/IPRATROPIUM 0.5 INH SOL 3 ML VIAL.NEB. NEB SCH ×4 (08:15→20:20)
[2023-05-08] MEDS: ATORVASTATIN CA 10 MG TABLET (FP) PO SCH (10:23)
[2023-05-08] MEDS: amLODIPine BESYLATE 5 MG TABLET (FP) PO SCH (10:23)
[2023-05-08] MEDS: FUROSEMIDE 40 MG TABLET (FP) PO SCH (10:23)
[2023-05-08] MEDS: predniSONE 20 MG TABLET (UD) PO SCH ×2 (10:23→21:03)
[2023-05-08] MEDS: PANTOPRAZOLE 40 MG TABLET PO SCH (10:24)
[2023-05-08] MEDS: APIXABAN 5 MG TABLET PO SCH ×2 (10:24→21:03)
[2023-05-08] MEDS: LOSARTAN POTASSIUM 50 MG TABLET PO SCH (10:25)
[2023-05-08] MEDS: ATENOLOL 50 MG TABLET (FP) PO SCH (10:26)
[2023-05-08] MEDS: CEFTRIAXONE 1 GM in DEXTROSE 5%-WATER - 50 ML IVPB SCH (21:02)
[2023-05-08] MEDS: AZITHROMYCIN IVPB 500 MG/250 ML BAG IVPB SCH (21:04)
[2023-05-09 07:33] LABS: HEMATOCRIT 41.7 % (32.4-45.2); HEMOGLOBIN 14.3 GM/dL (10.7-15.3); MCH 31.6 pg (25.7-33.7); MCHC 34.3 g/dl (32.0-36.0); MEAN CELL VOLUME 92.1 fl (80-96); MEAN PLT VOLUME 9.5 fl (7.5-11.1); PLATELET COUNT 234 10^3/uL (134-434); RBC 4.53 M/mm3 (3.60-5.2); RDW 12.8 % (11.6-15.6); WHITE BLOOD COUNT 11.1 K/mm3 (4.0-10.0)
[2023-05-09] MEDS: ALBUTEROL SO4 2.5/IPRATROPIUM 0.5 INH SOL 3 ML VIAL.NEB. NEB SCH ×3 (07:40→13:50)
[2023-05-09 07:50] LABS: POTASSIUM 4.3 mmol/L (3.5-5.1)
[2023-05-09 07:53] LABS: CALCIUM 8.4 mg/dL (8.5-10.1)
[2023-05-09 07:54] LABS: MAGNESIUM 2.3 mg/dL (1.8-2.4)
[2023-05-09 07:57] LABS: CREATININE 1.3 mg/dL (0.55-1.3)
[2023-05-09 08:07] VITALS: RESP 18
[2023-05-09] MEDS: ALBUTEROL SO4 HFA INHALER IH SCH ×3 (08:21→14:25)
[2023-05-09] MEDS: predniSONE 20 MG TABLET (UD) PO SCH (09:17)
[2023-05-09] MEDS: FUROSEMIDE 40 MG TABLET (FP) PO SCH (09:17)
[2023-05-09] MEDS: APIXABAN 5 MG TABLET PO SCH (09:17)
[2023-05-09] MEDS: PANTOPRAZOLE 40 MG TABLET PO SCH (09:17)
[2023-05-09] MEDS: amLODIPine BESYLATE 5 MG TABLET (FP) PO SCH (09:18)
[2023-05-09] MEDS: LOSARTAN POTASSIUM 50 MG TABLET PO SCH (09:18)
[2023-05-09] MEDS: ATORVASTATIN CA 10 MG TABLET (FP) PO SCH (09:18)
[2023-05-09] MEDS: ATENOLOL 50 MG TABLET (FP) PO SCH (10:07)
[2023-05-09 14:15] VITALS: PULSE 53
[2023-05-09 14:47] VITALS: BP 160/83; TEMP 98.3
== END 2023-05-09 17:20 | disposition home or self-care (01) | DRG 144 ==
LOC: JER 20:53 → JERBED 23:39 → J4S 05-05 06:07
PROVIDERS: ADMIT Internal Medicine; ATTEND Family Medicine
DX: J20.5 Acute bronchitis due to respiratory syncytial virus (principal); J96.02 Acute respiratory failure with hypercapnia; J96.01 Acute respiratory failure with hypoxia; I50.33 Acute on chronic diastolic (congestive) heart failure; I11.0 Hypertensive heart disease with heart failure; J45.901 Unspecified asthma with (acute) exacerbation; I48.0 Paroxysmal atrial fibrillation; Z79.01 Long term (current) use of anticoagulants; I25.10 Atherosclerotic heart disease of native coronary artery without angina pectoris
CPT/HCPCS: 0241U-QW; 36415; 71045-TC-FY; 80048; 80053; 82803; 82962; 83735; 83880; 84100; 84484; 85025; 85027; 85610; 85730; 86850; 86900; 86901; 87040; 87899; 93005; 93010; 94640; 94660; 94761; 99291

== ENCOUNTER 2023-09-04 15:40 | Emergency (ER) | payer OTHER ==
[2023-09-04 16:15] VITALS: RESP 18; TEMP 98.7; BMI 38.7
[2023-09-04 17:09] VITALS: BP 150/66; PULSE 56
== END 2023-09-04 18:29 | disposition home or self-care (01) ==
LOC: JER 15:40
DX: I10 Essential (primary) hypertension (principal); R45.7 State of emotional shock and stress, unspecified
CPT/HCPCS: 99283-25

== ENCOUNTER 2025-01-29 13:19 | Inpatient (IN) | payer OTHER ==
[2025-01-29 14:48] LABS: ABSOLUTE IMMATURE GRANULOCYTES 0.04 x10^3/uL (0.0-0.031); BASOPHILS # 0.07 x10^3/uL (0.01-0.08); EOSINOPHIL % 1.3 % (0.7-5.8); EOSINOPHILS # 0.15 x10^3/uL (0.04-0.36); MCHC 32.4 g/dl (32.2-35.5); MEAN CELL VOLUME 95.5 fl (79.4-94.8); MEAN PLT VOLUME 9.5 fl (9.4-12.3); MONOCYTE # 1.29 x10^3/uL (0.24-0.86); MONOCYTE % 11.2 % (4.7-12.5); RDW 12.7 % (12.5-17.0)
[2025-01-29 14:59] LABS: INR 1.5 (0.83-1.09); PROTHROMBIN TIME (PATIENT) 16.3 SEC (9.7-13.0)
[2025-01-29 15:02] LABS: ACTIVATED PTT 31.5 SECONDS (25.2-36.5)
[2025-01-29 15:24] LABS: CO2 30.0 mmol/L (21-32); GLUCOSE,RANDOM 113.0 mg/dL (74-106)
[2025-01-29 15:25] LABS: CREATININE 1.1 mg/dL (0.55-1.3); SGPT/ALT 20.0 U/L (13-61)
[2025-01-29 15:26] LABS: SGOT/AST 13.0 U/L (15-37)
[2025-01-29 15:27] LABS: TOT PROT 7.5 g/dl (6.4-8.2)
[2025-01-29 15:31] LABS: N-TERMINAL BNP 3497.0 pg/ml (5-450)
[2025-01-29 16:15] LABS: ALK PHOS 64.0 U/L (45-117)
[2025-01-29] MEDS ORDERED: FUROSEMIDE 40 MG/4 ML INJECTABLE VIAL ONE (18:38)
[2025-01-29] MEDS: FUROSEMIDE 40 MG/4 ML INJECTABLE VIAL IVPUSH ONE (18:41)
[2025-01-29 23:40] LABS: HCV DIAGNOSTIC IN-HOUSE W/RFLX NON-REACTIVE (NONREACTIVE)
[2025-01-30] MEDS: METOPROLOL TARTRATE 5 MG/5 ML VIAL IVPUSH ONE (00:36)
[2025-01-30] MEDS: PANTOPRAZOLE 40 MG TABLET PO SCH (07:01)
[2025-01-30 08:43] LABS: ABSOLUTE IMMATURE GRANULOCYTES 0.05 x10^3/uL (0.0-0.031); BASOPHILS # 0.07 x10^3/uL (0.01-0.08); EOSINOPHIL % 0.5 % (0.7-5.8); EOSINOPHILS # 0.06 x10^3/uL (0.04-0.36); MCHC 32.3 g/dl (32.2-35.5); MEAN CELL VOLUME 94.0 fl (79.4-94.8); MEAN PLT VOLUME 10.0 fl (9.4-12.3); MONOCYTE # 1.47 x10^3/uL (0.24-0.86); MONOCYTE % 12.3 % (4.7-12.5); RDW 12.4 % (12.5-17.0)
[2025-01-30] MEDS: FUROSEMIDE 40 MG TABLET (FP) PO SCH (09:04)
[2025-01-30] MEDS: EMPAGLIFLOZIN (JARDIANCE) 10 MG TABLET PO SCH (09:05)
[2025-01-30] MEDS: APIXABAN 5 MG TABLET PO SCH (09:05)
[2025-01-30 09:58] LABS: CO2 28.0 mmol/L (21-32)
[2025-01-30 09:59] LABS: GLUCOSE,RANDOM 124.0 mg/dL (74-106)
[2025-01-30 10:02] LABS: CREATININE 1.0 mg/dL (0.55-1.3)
[2025-01-30] MEDS: ACETAMINOPHEN 1000 MG/100 ML BAG IVPB PRN (12:00)
[2025-01-30 16:29] VITALS: BMI 34.1
[2025-01-30 19:19] LABS: HIV INTERPRETATION NEGATIVE (NEGATIVE)
[2025-01-30] MEDS: CEFTRIAXONE 2 GM in DEXTROSE 5%-WATER 100 ML IVPB SCH (22:02)
[2025-01-30] MEDS: ATORVASTATIN CA 10 MG TABLET (FP) PO SCH (22:06)
[2025-01-31 07:48] LABS: ABSOLUTE IMMATURE GRANULOCYTES 0.07 x10^3/uL (0.0-0.031); BASOPHILS # 0.05 x10^3/uL (0.01-0.08); EOSINOPHIL % 1.8 % (0.7-5.8); EOSINOPHILS # 0.26 x10^3/uL (0.04-0.36); MCHC 32.2 g/dl (32.2-35.5); MEAN CELL VOLUME 94.9 fl (79.4-94.8); MEAN PLT VOLUME 9.9 fl (9.4-12.3); MONOCYTE # 0.92 x10^3/uL (0.24-0.86); MONOCYTE % 6.5 % (4.7-12.5); RDW 12.3 % (12.5-17.0)
[2025-01-31 08:19] LABS: CO2 31.0 mmol/L (21-32); GLUCOSE,RANDOM 127.0 mg/dL (74-106)
[2025-01-31 08:22] LABS: CREATININE 1.1 mg/dL (0.55-1.3); SGOT/AST 35.0 U/L (15-37); SGPT/ALT 17.0 U/L (13-61)
[2025-01-31 08:24] LABS: TOT PROT 7.7 g/dl (6.4-8.2)
[2025-01-31 08:25] LABS: ALK PHOS 60.0 U/L (45-117)
[2025-01-31] MEDS: ALBUTEROL SO4 HFA INHALER IH PRN (12:06)
[2025-01-31] MEDS: IPRATROPIUM BR 0.02% 0.5 MG/2.5 ML VIAL.NEB. NEB PRN (12:26)
[2025-02-01 06:53] LABS: ABSOLUTE IMMATURE GRANULOCYTES 0.06 x10^3/uL (0.0-0.031); BASOPHILS # 0.06 x10^3/uL (0.01-0.08); EOSINOPHIL % 4.8 % (0.7-5.8); EOSINOPHILS # 0.65 x10^3/uL (0.04-0.36); MCHC 32.7 g/dl (32.2-35.5); MEAN CELL VOLUME 94.6 fl (79.4-94.8); MEAN PLT VOLUME 10.1 fl (9.4-12.3); MONOCYTE # 1.22 x10^3/uL (0.24-0.86); MONOCYTE % 9.1 % (4.7-12.5); RDW 12.1 % (12.5-17.0)
[2025-02-01 07:19] LABS: CO2 28.0 mmol/L (21-32); GLUCOSE,RANDOM 121.0 mg/dL (74-106)
[2025-02-01 07:22] LABS: CREATININE 1.2 mg/dL (0.55-1.3); SGPT/ALT 14.0 U/L (13-61)
[2025-02-01 07:23] LABS: SGOT/AST 11.0 U/L (15-37)
[2025-02-01 07:24] LABS: TOT PROT 6.8 g/dl (6.4-8.2)
[2025-02-01 07:25] LABS: ALK PHOS 58.0 U/L (45-117)
[2025-02-01] MEDS: CEFAZOLIN 2 GM/D5W 2 GM/50 ML ML IVPB SCH (17:50)
[2025-02-02 07:02] LABS: ABSOLUTE IMMATURE GRANULOCYTES 0.04 x10^3/uL (0.0-0.031); BASOPHILS # 0.04 x10^3/uL (0.01-0.08); EOSINOPHIL % 7.6 % (0.7-5.8); EOSINOPHILS # 0.78 x10^3/uL (0.04-0.36); MCHC 32.6 g/dl (32.2-35.5); MEAN CELL VOLUME 94.2 fl (79.4-94.8); MEAN PLT VOLUME 10.0 fl (9.4-12.3); MONOCYTE # 1.18 x10^3/uL (0.24-0.86); MONOCYTE % 11.4 % (4.7-12.5); RDW 12.0 % (12.5-17.0)
[2025-02-02 07:29] LABS: GLUCOSE,RANDOM 130.0 mg/dL (74-106)
[2025-02-02 07:30] LABS: CO2 27.0 mmol/L (21-32)
[2025-02-02 07:33] LABS: CREATININE 1.2 mg/dL (0.55-1.3); SGOT/AST 17.0 U/L (15-37); SGPT/ALT 14.0 U/L (13-61)
[2025-02-02 07:34] LABS: TOT PROT 6.3 g/dl (6.4-8.2)
[2025-02-02 07:35] LABS: ALK PHOS 53.0 U/L (45-117)
[2025-02-02] MEDS: ALBUTEROL SO4 2.5/IPRATROPIUM 0.5 INH SOL 3 ML VIAL.NEB. NEB SCH (11:46)
[2025-02-03 06:40] LABS: ABSOLUTE IMMATURE GRANULOCYTES 0.02 x10^3/uL (0.0-0.031); BASOPHILS # 0.06 x10^3/uL (0.01-0.08); EOSINOPHIL % 8.2 % (0.7-5.8); EOSINOPHILS # 0.77 x10^3/uL (0.04-0.36); MCHC 32.6 g/dl (32.2-35.5); MEAN CELL VOLUME 94.7 fl (79.4-94.8); MEAN PLT VOLUME 9.5 fl (9.4-12.3); MONOCYTE # 0.97 x10^3/uL (0.24-0.86); MONOCYTE % 10.3 % (4.7-12.5); RDW 12.2 % (12.5-17.0)
[2025-02-03 07:05] LABS: CO2 31.0 mmol/L (21-32); GLUCOSE,RANDOM 122.0 mg/dL (74-106)
[2025-02-03 07:08] LABS: CREATININE 1.0 mg/dL (0.55-1.3); SGOT/AST 12.0 U/L (15-37); SGPT/ALT 11.0 U/L (13-61)
[2025-02-03 07:10] LABS: TOT PROT 6.6 g/dl (6.4-8.2)
[2025-02-03 07:12] LABS: ALK PHOS 54.0 U/L (45-117)
[2025-02-03] MEDS: methylPREDNISolone NA SUCC 40 MG/1 ML VIAL IVPUSH SCH (11:37)
[2025-02-04 08:52] LABS: ABSOLUTE IMMATURE GRANULOCYTES 0.02 x10^3/uL (0.0-0.031); BASOPHILS # 0.01 x10^3/uL (0.01-0.08); EOSINOPHIL % 0.1 % (0.7-5.8); EOSINOPHILS # 0.01 x10^3/uL (0.04-0.36); MCHC 32.1 g/dl (32.2-35.5); MEAN CELL VOLUME 94.7 fl (79.4-94.8); MEAN PLT VOLUME 9.6 fl (9.4-12.3); MONOCYTE # 0.32 x10^3/uL (0.24-0.86); MONOCYTE % 3.7 % (4.7-12.5); RDW 12.0 % (12.5-17.0)
[2025-02-04 09:21] LABS: CO2 30.0 mmol/L (21-32); GLUCOSE,RANDOM 150.0 mg/dL (74-106)
[2025-02-04 09:24] LABS: CREATININE 1.2 mg/dL (0.55-1.3); SGOT/AST 15.0 U/L (15-37); SGPT/ALT 10.0 U/L (13-61)
[2025-02-04 09:26] LABS: TOT PROT 7.1 g/dl (6.4-8.2)
[2025-02-04 09:27] LABS: ALK PHOS 56.0 U/L (45-117)
[2025-02-05] MEDS: CEFAZOLIN SODIUM 2 GM in DEXTROSE 5%-WATER 100 ML IVPB SCH (20:00)
[2025-02-05] MEDS: BUDESONIDE/FORMETEROL FUMARATE 160/4.5 mcg INHALER IH SCH (22:17)
[2025-02-06 02:10] VITALS: RESP 18
[2025-02-06 10:22] VITALS: BP 157/87; PULSE 66; TEMP 97.2
== END 2025-02-06 15:17 | disposition home health service (06) | DRG 194 ==
LOC: JER 13:19 → JERBED 19:49 → J4S 23:53
PROVIDERS: ADMIT Internal Medicine; ATTEND Internal Medicine
DX: I11.0 Hypertensive heart disease with heart failure (principal); I48.91 Unspecified atrial fibrillation; I50.33 Acute on chronic diastolic (congestive) heart failure; J45.901 Unspecified asthma with (acute) exacerbation; L03.115 Cellulitis of right lower limb
CPT/HCPCS: 0241U-QW; 36415; 71045-TC-FY; 71250-TC; 73610-TC-RT-FY; 73630-TC-RT-FY; 80048; 80053; 83735; 83880; 84100; 84484; 85025; 85610; 85730; 86803; 86850; 86900; 86901; 87086; 87389; 93005; 93010; 93306-TC; 93971-TC; 94640; 97116-GP; 97161-GP; 99285-25

== ENCOUNTER 2025-03-24 10:38 | Inpatient (IN) | payer OTHER ==
[2025-03-24] MEDS ORDERED: ACETAMINOPHEN INJECTION 100 ML ONE (11:14)
[2025-03-24] MEDS ORDERED: FUROSEMIDE 40 MG/4 ML INJECTABLE VIAL ONE (11:36)
[2025-03-24] MEDS: FUROSEMIDE 40 MG/4 ML INJECTABLE VIAL IVPUSH ONE (11:49)
[2025-03-24] MEDS: ACETAMINOPHEN 1000 MG/100 ML BAG IVPB ONE (11:49)
[2025-03-24 11:55] LABS: ABSOLUTE IMMATURE GRANULOCYTES 0.05 x10^3/uL (0.0-0.031); BASOPHILS # 0.10 x10^3/uL (0.01-0.08); EOSINOPHIL % 2.3 % (0.7-5.8); EOSINOPHILS # 0.25 x10^3/uL (0.04-0.36); MCHC 32.5 g/dl (32.2-35.5); MEAN CELL VOLUME 92.9 fl (79.4-94.8); MEAN PLT VOLUME 9.6 fl (9.4-12.3); MONOCYTE # 0.76 x10^3/uL (0.24-0.86); MONOCYTE % 6.9 % (4.7-12.5); RDW 12.9 % (12.5-17.0)
[2025-03-24] MEDS ORDERED: METOPROLOL TARTRATE 5 MG/5 ML VIAL ONE (11:58)
[2025-03-24] MEDS: METOPROLOL TARTRATE 5 MG/5 ML VIAL IVPUSH ONE (12:02)
[2025-03-24 12:03] LABS: INR 1.52 (0.83-1.09); PROTHROMBIN TIME (PATIENT) 16.6 SEC (9.7-13.0)
[2025-03-24 12:06] LABS: ACTIVATED PTT 33.9 SECONDS (25.2-36.5)
[2025-03-24 12:06] LABS: BG HCT 41.0 % (32.4-45.2); VENOUS BASE EXCESS 1.0 mmol/L (-2-2); VENOUS O2 SATURATION 32.7 % (70-80); VENOUS PCO2 50.4 mmHg (38-52); VENOUS PH 7.353 (7.310-7.410)
[2025-03-24 13:40] LABS: GLUCOSE,RANDOM 121.0 mg/dL (74-106)
[2025-03-24 13:41] LABS: TOT PROT 7.3 g/dl (6.4-8.2)
[2025-03-24 13:42] LABS: CO2 26.0 mmol/L (21-32)
[2025-03-24 13:43] LABS: ALK PHOS 58.0 U/L (40-150)
[2025-03-24 13:46] LABS: CREATININE 1.02 mg/dL (0.55-1.3); SGOT/AST 18.0 U/L (5-34); SGPT/ALT 15.0 U/L (0-55)
[2025-03-24] MEDS ORDERED: ALBUTEROL SO4 HFA INHALER IH PRN (14:47)
[2025-03-24] MEDS ORDERED: ALBUTEROL SO4 HFA INHALER IH ONE (14:57)
[2025-03-24] MEDS: ALBUTEROL SO4 HFA INHALER IH SCH (15:01)
[2025-03-24 15:13] LABS: HIV INTERPRETATION NEGATIVE (NEGATIVE)
[2025-03-24 15:15] LABS: HCV DIAGNOSTIC IN-HOUSE W/RFLX NON-REACTIVE (NONREACTIVE)
[2025-03-24] MEDS: INSULIN ASPART SLIDING SCALE (NOVOLOG) 1 VIAL SQ SCH (17:50)
[2025-03-24 18:19] VITALS: BMI 35.4
[2025-03-24] MEDS: ATORVASTATIN CA 10 MG TABLET (FP) PO SCH (21:18)
[2025-03-24] MEDS: APIXABAN 5 MG TABLET PO SCH (21:19)
[2025-03-24] MEDS: ALBUTEROL SO4 0.083% IH SOL 2.5 MG/3 ML VIAL.NEB. NEB ONE (21:58)
[2025-03-24] MEDS: BUDESONIDE/FORMETEROL FUMARATE 160/4.5 mcg INHALER IH SCH (22:22)
[2025-03-25] MEDS: EMPAGLIFLOZIN (JARDIANCE) 10 MG TABLET PO SCH (06:30)
[2025-03-25 07:12] LABS: ABSOLUTE IMMATURE GRANULOCYTES 0.04 x10^3/uL (0.0-0.031); BASOPHILS # 0.10 x10^3/uL (0.01-0.08); EOSINOPHIL % 4.4 % (0.7-5.8); EOSINOPHILS # 0.39 x10^3/uL (0.04-0.36); MCHC 32.2 g/dl (32.2-35.5); MEAN CELL VOLUME 93.2 fl (79.4-94.8); MEAN PLT VOLUME 9.6 fl (9.4-12.3); MONOCYTE # 0.74 x10^3/uL (0.24-0.86); MONOCYTE % 8.4 % (4.7-12.5); RDW 12.7 % (12.5-17.0)
[2025-03-25 07:40] LABS: GLUCOSE,RANDOM 120.0 mg/dL (74-106); TOT PROT 6.4 g/dl (6.4-8.2)
[2025-03-25 07:41] LABS: CO2 28.0 mmol/L (21-32)
[2025-03-25 07:43] LABS: ALK PHOS 50.0 U/L (40-150)
[2025-03-25 07:45] LABS: SGPT/ALT 10.0 U/L (0-55)
[2025-03-25 07:46] LABS: CREATININE 1.1 mg/dL (0.55-1.3); SGOT/AST 16.0 U/L (5-34)
[2025-03-25] MEDS: PANTOPRAZOLE 40 MG TABLET PO SCH (09:54)
[2025-03-25] MEDS: ALLOPURINOL 300 MG TABLET (FP) PO SCH (09:54)
[2025-03-25] MEDS: FUROSEMIDE 40 MG/4 ML INJECTABLE VIAL IVPUSH SCH (09:54)
[2025-03-26 06:38] LABS: ABSOLUTE IMMATURE GRANULOCYTES 0.05 x10^3/uL (0.0-0.031); BASOPHILS # 0.13 x10^3/uL (0.01-0.08); EOSINOPHIL % 3.9 % (0.7-5.8); EOSINOPHILS # 0.49 x10^3/uL (0.04-0.36); MCHC 32.4 g/dl (32.2-35.5); MEAN CELL VOLUME 92.8 fl (79.4-94.8); MEAN PLT VOLUME 9.9 fl (9.4-12.3); MONOCYTE # 1.03 x10^3/uL (0.24-0.86); MONOCYTE % 8.1 % (4.7-12.5); RDW 12.7 % (12.5-17.0)
[2025-03-26 07:14] LABS: TOT PROT 7.6 g/dl (6.4-8.2)
[2025-03-26 07:15] LABS: CO2 23 mmol/L (21-32)
[2025-03-26 07:16] LABS: ALK PHOS 52 U/L (40-150)
[2025-03-26 07:19] LABS: CREATININE 0.97 mg/dL (0.55-1.3); SGOT/AST 53 U/L (5-34); SGPT/ALT 11 U/L (0-55)
[2025-03-26 07:26] LABS: GLUCOSE,RANDOM 120 mg/dL (74-106)
[2025-03-26 16:02] VITALS: RESP 18
[2025-03-26 18:41] LABS: GLUCOSE,RANDOM 176.0 mg/dL (74-106)
[2025-03-26 18:42] LABS: CO2 28.0 mmol/L (21-32)
[2025-03-26 18:46] LABS: CREATININE 1.29 mg/dL (0.55-1.3)
[2025-03-27 06:07] VITALS: BP 132/76; PULSE 65; TEMP 98.4
[2025-03-27 06:50] LABS: ABSOLUTE IMMATURE GRANULOCYTES 0.04 x10^3/uL (0.0-0.031); BASOPHILS # 0.10 x10^3/uL (0.01-0.08); EOSINOPHIL % 4.0 % (0.7-5.8); EOSINOPHILS # 0.40 x10^3/uL (0.04-0.36); MCHC 32.6 g/dl (32.2-35.5); MEAN CELL VOLUME 92.2 fl (79.4-94.8); MEAN PLT VOLUME 10.1 fl (9.4-12.3); MONOCYTE # 0.89 x10^3/uL (0.24-0.86); MONOCYTE % 8.9 % (4.7-12.5); RDW 12.6 % (12.5-17.0)
[2025-03-27 07:20] LABS: TOT PROT 6.5 g/dl (6.4-8.2)
[2025-03-27 07:21] LABS: CO2 27.0 mmol/L (21-32)
[2025-03-27 07:23] LABS: ALK PHOS 56.0 U/L (40-150)
[2025-03-27 07:24] LABS: GLUCOSE,RANDOM 120.0 mg/dL (74-106)
[2025-03-27 07:26] LABS: CREATININE 1.22 mg/dL (0.55-1.3); SGOT/AST 15.0 U/L (5-34); SGPT/ALT 8.0 U/L (0-55)
[2025-03-27 14:07] LABS: LDL CHOLESTEROL (ONLY SJRH) 88.0 mg/dL (5-100)
== END 2025-03-27 12:24 | disposition home health service (06) | DRG 194 ==
LOC: JER 10:38 → JERBED 13:48 → OBSVTOIN 14:45 → J4W 17:09
PROVIDERS: ADMIT Internal Medicine; ATTEND Internal Medicine
DX: I11.0 Hypertensive heart disease with heart failure (principal); I48.91 Unspecified atrial fibrillation; E11.9 Type 2 diabetes mellitus without complications; E78.5 Hyperlipidemia, unspecified; J45.909 Unspecified asthma, uncomplicated; I50.20 Unspecified systolic (congestive) heart failure; I50.33 Acute on chronic diastolic (congestive) heart failure; I25.10 Atherosclerotic heart disease of native coronary artery without angina pectoris
CPT/HCPCS: 36415; 70450-TC; 71045-TC-FY; 80048; 80053; 80061; 82803; 82962; 83036; 83880; 84443; 84484; 85025; 85610; 85730; 86803; 86850; 86900; 86901; 87389; 93005; 93010; 93880-TC; 94640; 97116-GP; 99285-25; G0378